=== PATIENT | female | born 1990 | race Caucasian/White ===

== ENCOUNTER → 2020-01-05 14:38 | Outpatient (CLI) | payer BC, SELFPAY ==
[2020-01-05 15:06] LABS: ROM Internal Control Test YES-OK TO RESULT pt. (Internal QC); ROM Patient Test Negative (Negative)
== END ==
PROVIDERS: PCP Student in an Organized Health Care Education/Training Program; Referring Provider Advanced Practice Midwife; Visit Provider Advanced Practice Midwife
DX: N89.8 Other specified noninflammatory disorders of vagina (principal)
CPT/HCPCS: 84112

== ENCOUNTER 2020-01-23 23:50 | Outpatient (CLI) | payer BC, SELFPAY ==
[2016-10-21 15:13] VITALS: BMI 33.0
[2020-01-24 00:10] VITALS: BMI 35.9
[2020-01-24 00:21] VITALS: BP 112/65; PULSE 110; TEMP 36.9; O2SAT 98
[2020-01-24 00:36] LABS: ROM Internal Control Test YES-OK TO RESULT pt. (Internal QC); ROM Patient Test Negative (Negative)
--- NOTE | 2020-03-24 00:36 | OB.TRI.NOTE ---
- Problem List (1) 39 weeks gestation of Status: Acute (2) Vaginal discharge Status: Acute History of Present Illness Date of Service: 01/24/20 Was patient seen by the physician?: No Reason For Visit: R/O LABOR Date of Service: 01/24/20 Final LIZABETH: 01/31/20 Final LIZABETH Source: LMP Gestational age: 39 week gestation History of Present Illness: Rule out rupture Allergies No Known Allergies Allergy (Verified 01/24/20 20:33) Laboratory Studies: Laboratory Tests 01/24/20 Range/Units 00:10 Vag Amniotic Fld Detect Negative (Negative) Physical Exam Vitals: Vital Signs Temp Pulse BP Pulse Ox 98.5 F 110 H 112/65 98 01/24/20 00:21 01/24/20 00:21 01/24/20 00:21 01/24/20 00:21 NST - FHR Rate Baby A Baseline: 150 Variability:: Moderate Accelerations:: 15 x 15 Decelerations:: None NST Reactive:: Yes Impression/Plan Pt not ruptured NST reactive D/c home
== END 2020-01-24 02:15 | disposition home or self-care (01) ==
LOC: WPOUT 23:57 → WP 23:57
PROVIDERS: PCP Student in an Organized Health Care Education/Training Program; Visit Provider Obstetrics & Gynecology
DX: O26.893 Other specified pregnancy related conditions, third trimester (principal); N89.8 Other specified noninflammatory disorders of vagina; Z3A.39 39 weeks gestation of pregnancy
CPT/HCPCS: 59025; 59050; 84112; 99218; G0378

== ENCOUNTER 2020-01-24 19:26 | Inpatient (IN) | payer BC, SELFPAY ==
[2020-01-24] VITALS (12 sets, daily range): BP systolic 116–131; BP diastolic 67–85; PULSE 93–116; TEMP 36.7–36.8; O2SAT 92–99; BMI 35.9; BMI 35.7
[2020-01-24] MEDS: Lactated Ringers 1,000 ML 50 ML IV (20:05)
[2020-01-24 20:15] LABS: Absolute Lymphocyte Count 1.55 X10^3/uL (0.83-4.51); Absolute Neutrophil Count 9.2 X10^3/uL (2.0-7.7); Basophil# 0.04 X10^3/uL; Basophil% 0.3 % (0-1); Eosinophil# 0.11 X10^3/uL; Eosinophils% 0.9 % (0-5); Hematocrit 35.5 % (37-47); Hemoglobin 11.4 g/dL (12.0-15.0); Lymphocyte # 1.55 X10^3/ul (4.0); Mean Corp Hgb Conc 32.1 g/dL (32-36); Mean Corpuscular Hgb 29.7 pg (27.0-32.0); Mean Corpuscular Volume 92.4 fL (81-99); Mean Platelet Vol. 10.6 fl (6.2-12.0); Monocyte# 0.93 X10^3/uL; Monocyte% 7.8 % (0-10); NRBC Flagged by Analyzer 0 % (0-5); Neutrophil # 9.16 X10^3/uL (2.7-7.7); Neutrophil % 76.8 % (47-70); Platelet Count 231 K/mm3 (150-450); RBC Distribution Width CV 13.7 % (11.6-14.6); RBC Distribution Width SD 45.8 fl (35.1-43.9); Red Blood Count 3.84 M/mm3 (4.2-5.4); White Blood Count 11.9 K/mm3 (4.4-11.0)
[2020-01-24] MEDS: fentaNYL 100 MCG/2 ML Ampul IV (20:28)
--- NOTE | 2020-01-24 20:28 | HP.PCM_ITS ---
- Problem List (1) 39 weeks gestation of Status: Acute (2) Active labor Status: Acute History Date of Admission: 01/24/20 Final LIZABETH: 01/31/20 Final LIZABETH Source: LMP Gestational age: 39 Weeks and 0 Days History of this : This is a 29 year-old, G [3], P [2], at 39 weeks gestational age that presents in spontaneous, active labor. Positive movement. Denies any loss of fluid or vaginal bleeding. Desires natural child . Allergies No Known Allergies Allergy (Verified 01/24/20 00:11) Home Medications: Home Medications Vits [Prenatabs FA ] 1 tablet PO DAILY 05/04/14 Fluticasone 0.05% [Flonase Nasal [place]] 1 spray NASAL PRN PRN 01/24/20 Zyrtec 10 mg PO DAILY 01/24/20 Smoking Status: Never smoker Number of Fetus(es): 1 NST - FHR Rate Baby A Baseline: 150 Variability:: Moderate Accelerations:: 15 x 15 Decelerations:: None NST Reactive:: Yes FHR Category:: Category I Uterine Activity:: TOCO- 2-5 minutes. Palpate moderate and relaxed in between History Past Pregnancies: Past Pregnancies Delivery Date Name GA/ Weeks Outcome Route Wt Sex Labor Length Anesthesia Delivery Location Provider FOB Labs: B+ Rubella - immune HB- neg HC- neg HIV- NR GC/CH- neg GBS negative CoVID- 19- unknown Expected Infant Delivery Method: Spontaneous Vaginal Review of Systems Constitutional: Denies: Anorexia, Chills Eyes: Denies: Blurred vision Cardiovascular: Denies: Chest Pain Respiratory: Denies: Cough Genitourinary: Denies: Dysuria Neurological: Denies: Headaches Physical Exam Vitals: Vital Signs Temp Pulse BP 98.1 F 101 H 121/74 H 01/24/20 19:39 01/24/20 19:39 01/24/20 19:39 General: Alert, Oriented x3 HEENT: Atraumatic Cardiovascular: Regular rate Lungs: Normal air movement Abdomen: Soft, Non Tender, Gravid Neurological: Cranial nerves II-XII grossly intact Estimated gestational size: Appropriate for gestational size Presentation: Cephalic Cervix 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 Admit to labor and delivery Routine labs IV fluids per policy Pain medication if indicated GBS negative Anticipate Dr. Mai notified and is collaborating physician
[2020-01-24] MEDS: Ondansetron 4 MG/2 ML Vial IV (22:40)
[2020-01-24] MEDS: Oxytocin 10 UNITS/ML Vial IM (23:23)
--- NOTE | 2020-01-24 23:28 | PCM.OPRPT ---
Problem List (1) 39 weeks gestation of Status: Acute (2) Active labor Status: Acute Report of Operation Date of Procedure: 01/24/20 Vaginal Delivery Maternal Presentation: Active Labor Patient is a at 39.0 weeks gestation in spontaneous, active labor. Patient quickly progressed to 9cm with bulging bag. Natural child . Requesting to have AROM to speed up delivery. AROM for clear fluid, patient bearing down with contractions. head delivered quickly with minimal effort. Loose nuchal cord x2 easily reduced. Rest of infant delivered spontaneously and immediately vigorous placed on maternal abdomen. Delayed cord clamp completed for 2 minutes. Cord cut by FOB and placed skin to skin with patient. Patient's IV became infiltrated. Pitocin 10 mg IM x1 given for active management of third stage. Placenta delivered spontaneously and intact. Vaginal sweep completed. 1st degree perineal laceration noted, no repair needed and bleeding hemostatic. Fundus was firm 2 below U. Infant and mother bonding at this time. Amniotic Membrane Rupture Type: Spontaneous at home Rupture of Membrane time: 2308 Amniotic Fluid Description: Clear Gestational age: 39.0 Date of Procedure: 01/24/20 Pre-Operative Diagnosis: Term gestation, spontaneous, active labor Post-Operative Diagnosis: Same, live female infant Surgery/ Procedure Performed: Spontaneous Vaginal Delivery Type of Anesthesia: None Presentation: Vertex Placental Delivery Description: Spontaneous Placenta Disposition: [facility] Cord Vessel Description: 3 Vessels Nuchal Cord Compression: Without compression Cord Entanglement: Around neck x 2, loose Estimated Blood Loss: 250 A gender: Female (1 minute): 9 (5 minute): 9 Episiotomy Description: None Laceration: Perineal Extension/lac, 1st degree Medications given after delivery: - - IM Pitocin Complications: None
[2020-01-24] MEDS: Ibuprofen 600 MG Tablet PO (23:59)
[2020-01-25] VITALS (18 sets, daily range): BP systolic 104–126; BP diastolic 57–72; PULSE 85–106; RESP 15–16; TEMP 36.3–36.9; O2SAT 98
[2020-01-25] MEDS: Methylergonovine 0.2 MG/ML Ampul IM (01:44)
[2020-01-25] MEDS: Ibuprofen 600 MG Tablet PO ×3 (06:45→20:42)
--- NOTE | 2020-01-25 08:22 | PCM.PN.OB ---
Patient Problems: Active and Suspected Problems 39 weeks gestation of (Acute) Active labor (Acute) Subjective: No complaints - Physical Exam Vitals/I&O's: Vital Signs Temp Pulse Resp BP Pulse Ox 97.4 F L 88 16 124/70 H 98 01/25/20 04:00 01/25/20 04:00 01/25/20 04:00 01/25/20 04:00 01/25/20 04:00 Oxygen Delivery Method Room Air Weight: 228 lb 6.4 oz Body Mass Index (BMI) 35.7 Intake and Output for Last 24 Hours 01/23/20 01/24/20 01/25/20 23:59 23:59 23:59 Intake Total 161.67 / 161.67 Output Total 400 / 400 Balance 161.67 / 161.67 -400 / -400 General: Alert, Oriented x3 Abdomen: Soft, Non Tender, Non-Distended - ff mid & below umb Extremities: No Calf Tenderness Laboratory Results 01/24/20 20:05: WBC 11.9 H, RBC 3.84 L, Hgb 11.4 L, Hct 35.5 L, MCV 92.4, MCH 29.7, MCHC 32.1, RDW Std Deviation 45.8 H, RDW Coeff of [place] 13.7, Plt Count 231, MPV 10.6, Immature Gran % (Auto) 1.200 H, Neut % (Auto) 76.8 H, Lymph % (Auto) 13.0 L, [place] % (Auto) 7.8, Eos % (Auto) 0.9, Baso % (Auto) 0.3, Absolute Neuts (auto) 9.2 H, Absolute Lymphs (auto) 1.55, Nucleated RBC % 0 01/24/20 20:05: Blood Type B POSITIVE, Antibody Screen NEGATIVE Current Medications Acetaminophen (Tylenol) 1,000 mg PO Q8H PRN PRN PRN Reason: Pain Score 1-3/10 Bisacodyl (Dulcolax) 10 mg RECTAL UD PRN PRN Reason: If no BM Dibucaine (Dibucaine) 1 applic TOPICAL TID PRN PRN; Protocol PRN Reason: Discomfort Hydrocortisone (Hytone) 1 applic TOPICAL TID PRN PRN; Protocol PRN Reason: Discomfort Ibuprofen (Motrin) 600 mg PO Q6H PRN PRN PRN Reason: Pain Score 1-3/10 Last Admin: 01/25/20 06:45 Dose: 600 mg Documented by: Methylergonovine Maleate (Methergine) 0.2 mg IM X1 PRN PRN Reason: Excess bleeding/uterine atony Last Admin: 01/25/20 01:44 Dose: 0.2 mg Documented by: Ondansetron HCl (Zofran) 4 mg IV Q4H PRN PRN PRN Reason: Nausea Senna/Docusate Sodium (Senokot-S, Kristina-Colace) 1 - 2 tablet PO DAILY PRN PRN PRN Reason: Constipation Simethicone (Mylicon) 80 mg PO PCHS PRN PRN Reason: Indigestion/Stomach pain Sodium Chloride () 5 - 15 ml IV UD PRN PRN Reason: SALINE FLUSH Medical Necessity - Tobacco Use Smoking Status: Never smoker Assessment/Plan All Active Problems 39 weeks gestation of (Acute) Active labor (Acute) PPD#1 Routine care
[2020-01-26 01:31] VITALS: BP 106/56; PULSE 87; TEMP 36.3
[2020-01-26 01:32] VITALS: BP 106/56; PULSE 87; RESP 14; TEMP 36.3
[2020-01-26] MEDS: Acetaminophen 500 MG Tablet 1000 MG PO (04:18)
--- NOTE | 2020-01-26 07:39 | DCINST_ITS ---
Discharge Diet: No Restrictions Discharge Activity: May Drive, May Shower May resume sexual activity in: 6 weeks Additional Instructions: If you experience any of the following, contact your healthcare provider. * Bleeding that soaks a pad every hour for 2 hours * Fever 100.4 or higher * Unrelieved incision or abdominal pain * Swelling, redness, discharge or bleeding from your incision or episiotomy site * Your incision begins to separate * Problems urinating (including inability to urinate or burning while urinating). * Visual changes * Severe headache * Flu-like symptoms * Pain or redness in one of both of your breasts * Pain, warmth, tenderness or swelling in your legs, especially the calf area * Frequent nausea and vomiting * Symptoms of depression or anxiety If you experience any of the following, call 911 or go to the nearest Emergency Room. * Chest pain * Problems breathing * Seizure activity * Partial or complete paralysis of a body part, slurred speech, weakness or drooping of the face, or a sudden inability to walk or hold your balance Allergies/Adverse Reactions: Allergies No Known Allergies Allergy (Verified 01/24/20 20:33) Medications to take at Discharge Vits [Prenatabs FA ] 1 tablet PO DAILY 05/04/14 Fluticasone 0.05% [Flonase Nasal [place]] 1 spray NASAL PRN PRN 01/24/20 Zyrtec 10 mg PO DAILY 01/24/20 Acetaminophen [Tylenol] 1,000 mg PO Q8H PRN PRN tablet 01/26/20 Ibuprofen [Motrin] 600 mg PO Q6H PRN PRN tablet 01/26/20 Primary Care Physician: Tyrese Nguyen DO [Primary Care Provider] - Test Results: Test results from this visit will be discussed in further detail at your follow- up appointment, if applicable.
--- NOTE | 2020-01-26 07:39 | PCM.DCVAG ---
Discharge Diet: No Restrictions Discharge Activity: May Drive, May Shower May resume sexual activity in: 6 weeks Additional Instructions: If you experience any of the following, contact your healthcare provider. Bleeding that soaks a pad every hour for 2 hours Fever 100.4 or higher Unrelieved incision or abdominal pain Swelling, redness, discharge or bleeding from your incision or episiotomy site Your incision begins to separate Problems urinating (including inability to urinate or burning while urinating). Visual changes Severe headache Flu-like symptoms Pain or redness in one of both of your breasts Pain, warmth, tenderness or swelling in your legs, especially the calf area Frequent nausea and vomiting Symptoms of depression or anxiety If you experience any of the following, call 911 or go to the nearest Emergency Room. Chest pain Problems breathing Seizure activity Partial or complete paralysis of a body part, slurred speech, weakness or drooping of the face, or a sudden inability to walk or hold your balance Allergies/Adverse Reactions: Allergies No Known Allergies Allergy (Verified 01/24/20 20:33) Medications to take at Discharge Vits [Prenatabs FA ] 1 tablet PO DAILY 05/04/14 Fluticasone 0.05% [Flonase Nasal [place]] 1 spray NASAL PRN PRN 01/24/20 Zyrtec 10 mg PO DAILY 01/24/20 Acetaminophen [Tylenol] 1,000 mg PO Q8H PRN PRN tablet 01/26/20 Ibuprofen [Motrin] 600 mg PO Q6H PRN PRN tablet 01/26/20 Primary Care Physician: Tyrese Nguyen DO [Primary Care Provider] - Test Results: Test results from this visit will be discussed in further detail at your follow-up appointment, if applicable.
--- NOTE | 2020-01-26 07:40 | PCM.PN.OB ---
Patient Problems: Active and Suspected Problems 39 weeks gestation of (Acute) Active labor (Acute) Subjective: No complaints - Physical Exam Vitals/I&O's: Vital Signs Temp Pulse Resp BP Pulse Ox 97.3 F L 87 14 106/56 L 98 01/26/20 01:32 01/26/20 01:32 01/26/20 01:32 01/26/20 01:32 01/25/20 04:00 Oxygen Delivery Method Room Air Weight: 228 lb 6.4 oz Body Mass Index (BMI) 35.7 Intake and Output for Last 24 Hours 01/24/20 01/25/20 01/26/20 23:59 23:59 23:59 Intake Total 161.67 / 161.67 Output Total 400 / 400 Balance 161.67 / 161.67 -400 / -400 General: Alert, Oriented x3 Abdomen: Soft, Non Tender, Non-Distended - ff mid & below umb Extremities: No Calf Tenderness Neurological: Cranial nerves II-XII grossly intact Current Medications Acetaminophen (Tylenol) 1,000 mg PO Q8H PRN PRN PRN Reason: Pain Score 1-3/10 Last Admin: 01/26/20 04:18 Dose: 1,000 mg Documented by: Bisacodyl (Dulcolax) 10 mg RECTAL UD PRN PRN Reason: If no BM Dibucaine (Dibucaine) 1 applic TOPICAL TID PRN PRN; Protocol PRN Reason: Discomfort Hydrocortisone (Hytone) 1 applic TOPICAL TID PRN PRN; Protocol PRN Reason: Discomfort Ibuprofen (Motrin) 600 mg PO Q6H PRN PRN PRN Reason: Pain Score 1-3/10 Last Admin: 01/25/20 20:42 Dose: 600 mg Documented by: Methylergonovine Maleate (Methergine) 0.2 mg IM X1 PRN PRN Reason: Excess bleeding/uterine atony Last Admin: 01/25/20 01:44 Dose: 0.2 mg Documented by: Ondansetron HCl (Zofran) 4 mg IV Q4H PRN PRN PRN Reason: Nausea Senna/Docusate Sodium (Senokot-S, Kristina-Colace) 1 - 2 tablet PO DAILY PRN PRN PRN Reason: Constipation Simethicone (Mylicon) 80 mg PO PCHS PRN PRN Reason: Indigestion/Stomach pain Sodium Chloride () 5 - 15 ml IV UD PRN PRN Reason: SALINE FLUSH Medical Necessity - Tobacco Use Smoking Status: Never smoker Assessment/Plan All Active Problems 39 weeks gestation of (Acute) Active labor (Acute) PPD#2 D/c home
[2020-01-26 07:44] VITALS: TEMP 36.3
[2020-01-26 07:45] VITALS: BP 90/56; PULSE 80
[2020-01-26 07:53] VITALS: BP 90/56; PULSE 80; RESP 18; TEMP 36.3; O2SAT 97
== END 2020-01-26 10:45 | disposition home or self-care (01) | DRG 807 ==
LOC: WPOUT 19:32 → WP 19:33 → WPOUT 19:47 → WP 19:47
PROVIDERS: Admitting Provider Advanced Practice Midwife; PCP Student in an Organized Health Care Education/Training Program; Referring Provider Advanced Practice Midwife; Visit Provider Advanced Practice Midwife
DX: O69.81X0 Labor and delivery complicated by cord around neck, without compression, not applicable or unspecified (principal); Z37.0 Single live birth; Z3A.39 39 weeks gestation of pregnancy; O70.0 First degree perineal laceration during delivery
CPT/HCPCS: 59025; 59050; 85025; 86850; 86900; 86901; 99218; J7120; G0378; J2405

== ENCOUNTER 2022-06-03 11:50 | Outpatient (CLI) | payer BC, SELFPAY ==
[2022-06-03 12:05] VITALS: TEMP 37.4
[2022-06-03 12:59] VITALS: BMI 34.2
--- NOTE | 2022-06-09 08:54 | OB.TRI.PN ---
Progress Notes Progress Note: 35w5d with LIZABETH:07/03/22 Patient seen in office for routine OB visit. heart rate deceleration auscultated on doppler and placed on NST. tachycardia and then sent to labor and delivery for evaluation. Good movement, no leakage of flood or vaginal bleeding. Laboratory Studies: NST 140s, moderate variability, accels, no decels, Reactive Assessment & Plan (1) 35 weeks gestation of : (2) tachycardia: PLAN: Plan 1) Reactive NST, no tachycardia 2) D/C home
== END 2022-06-03 14:35 | disposition home or self-care (01) ==
LOC: WP 11:59 → WPOUT 11:59
PROVIDERS: PCP Student in an Organized Health Care Education/Training Program; Visit Provider Advanced Practice Midwife
DX: O35.BXX0 Maternal care for other (suspected) fetal abnormality and damage, fetal cardiac anomalies, not applicable or unspecified (principal); Z3A.35 35 weeks gestation of pregnancy
CPT/HCPCS: 59025; 59050

== ENCOUNTER 2022-06-18 23:30 | Outpatient (CLI) | payer BC, SELFPAY ==
[2022-06-18 23:35] VITALS: BMI 34.8
[2022-06-18 23:46] VITALS: TEMP 37.1
[2022-06-19 00:02] VITALS: BP 114/70; PULSE 100
[2022-06-19 00:26] LABS: ROM Internal Control Test YES-OK TO RESULT pt. (Internal QC); ROM Patient Test Negative (Negative)
[2022-06-19 01:07] LABS: ROM Internal Control Test YES-OK TO RESULT pt. (Internal QC); ROM Patient Test Negative (Negative)
== END 2022-06-19 01:25 | disposition home or self-care (01) ==
LOC: WPOUT 23:34 → WP 23:34
PROVIDERS: PCP Student in an Organized Health Care Education/Training Program; Visit Provider Obstetrics & Gynecology
DX: O80 Encounter for full-term uncomplicated delivery (principal); Z3A.38 38 weeks gestation of pregnancy
CPT/HCPCS: 59025; 59050; 84112; 99221; G0378

== ENCOUNTER 2022-06-19 09:45 | Inpatient (IN) | payer BC, SELFPAY ==
[2022-06-19] VITALS (30 sets, daily range): BP systolic 101–135; BP diastolic 52–92; PULSE 88–113; RESP 16; TEMP 36.6–37.3; O2SAT 90–100; BMI 34.6
[2022-06-19] MEDS: Lactated Ringers 1,000 ML 50 ML IV (10:00)
[2022-06-19] MEDS: LACTATED RINGERS 500 ML 999 ML IV (10:00)
[2022-06-19 10:32] LABS: Absolute Lymphocyte Count 1.21 X10^3/uL (0.83-4.51); Absolute Neutrophil Count 10.1 X10^3/uL (2.0-7.7); Basophil# 0.03 X10^3/uL; Basophil% 0.2 % (0-1); Eosinophil# 0.02 X10^3/uL; Eosinophils% 0.2 % (0-5); Hematocrit 37.7 % (37-47); Hemoglobin 12.4 g/dL (12.0-15.0); Lymphocyte # 1.21 X10^3/ul (0.83-4.51); Lymphocyte % 9.8 % (19-41); Mean Corp Hgb Conc 32.9 g/dL (32-36); Mean Corpuscular Hgb 30.6 pg (27.0-32.0); Mean Corpuscular Volume 93.1 fL (81-99); Monocyte# 0.89 X10^3/uL; Monocyte% 7.2 % (0-10); NRBC Flagged by Analyzer 0 % (0-5); Neutrophil # 10.09 X10^3/uL (2.7-7.7); Platelet Count 184 K/mm3 (150-450); RBC Distribution Width CV 13.2 % (11.6-14.6); Red Blood Count 4.05 M/mm3 (4.2-5.4); White Blood Count 12.3 K/mm3 (4.4-11.0)
[2022-06-19] MEDS: fentaNYL-bupivacaine (epidural) 100 ML BAG EPIDURAL (11:12)
[2022-06-19] MEDS: Oxytocin 15 Units/NS 250ml 15 UNITS/250 ML IV.SOLN 334 UNITS IV (11:23)
--- NOTE | 2022-06-19 11:31 | EX.PCM.OBRPT ---
Maternal Data Information Final LIZABETH: 07/03/22 Final LIZABETH Source: US <20 weeks Gestational age: 38 Vaginal Delivery Maternal Presentation Maternal Presentation: Active Labor Operative Information Date of Procedure: 06/19/22 Pre-Operative Diagnosis: term gestation, active labor Post-Operative Diagnosis: same, live female Surgery / Procedure Performed: Spontaneous Vaginal Delivery Type of Anesthesia: Epidural (did not get relief- was just placed when she SROM and progressed to complete. ) Estimated Blood Loss: 150 Time of Delivery: 11:21 Findings Description of Procedure: I was called notified that the patient was complete at the time of placement of her epidural with spontaneous rupture membranes. Upon my arrival at the hospital patient was +2 station uncontrolled pain. Good maternal pushing efforts delivered the infant's head followed by the anterior and posterior shoulders without complication. The infant was then placed on the mother's chest for immediate skin to skin. Delayed cord clamping for approximately 2 minutes was performed per patient request. Placenta was then delivered intact without complication. No repair indicated. Amniotic Fluid Description: Clear Placental Delivery Description: Spontaneous Placenta Disposition: [facility] Specimen(s) Removed: Placenta Cord Vessel Description: 3 Vessels Cord Entanglement: None A Gender: Female (1 minute): 9 (5 minute): 9 Delayed Cord Clamping: Yes Post Vaginal Delivery Medications Given After Delivery: IV Pitocin Episiotomy Description: None Laceration: None Complication Complications: None
--- NOTE | 2022-06-19 11:34 | PCM.HP.OB ---
HPI - General General Date of Admission: 06/19/22 Date of Service: 06/19/22 Chief Complaint: labor HPI Narrative TEQUILA MAST, is a 31 F @ 38 weeks who presents c/o contractions. was found to be 4cm- very uncomfortable- kept for labor. PFSH PFSH Home Medications vits,calcium no.78-iron fumarate-folic acid 29 mg-1 mg tablet (Prenatabs FA) 1 tab PO DAILY 05/04/14 [History Last Taken 06/18/22 09:00] aspirin 81 mg capsule ([place]) 81 mg DAILY (obestity) 06/03/22 [History Last Taken 06/18/22 09:00] Allergy/AdvReac Type Severity Reaction Status Date / Time No Known Allergies Allergy Verified 06/19/22 09:32 Social History Smoking Status: Never smoker History Elective abortions Hx Para 3 Spontaneous abortions Hx # Term Pregnancies Ectopic pregnancies Hx # Pregnancies Multiple births # of living children Vital Signs Vital Signs Vital Signs: 06/19/22 09:26 06/19/22 09:26 06/19/22 09:26 Temperature Temperature Source Pulse Rate 102 H 109 H Blood Pressure 118/70 BP Systolic 118 BP Diastolic 70 Pulse Ox 06/19/22 09:26 06/19/22 09:26 06/19/22 09:36 Temperature Temperature Source Temporal Temporal Pulse Rate Blood Pressure BP Systolic BP Diastolic Pulse Ox 97 06/19/22 09:36 06/19/22 10:31 06/19/22 10:31 Temperature 97.9 F Temperature Source Pulse Rate 105 H Blood Pressure 120/78 BP Systolic 120 BP Diastolic 78 Pulse Ox 06/19/22 10:34 06/19/22 10:34 06/19/22 10:34 Temperature 98.0 F Temperature Source Temporal Pulse Rate Blood Pressure BP Systolic BP Diastolic Pulse Ox 100 06/19/22 10:57 06/19/22 10:57 06/19/22 10:59 Temperature Temperature Source Pulse Rate 106 H 110 H Blood Pressure BP Systolic BP Diastolic Pulse Ox 96 06/19/22 10:59 06/19/22 11:02 06/19/22 11:02 Temperature Temperature Source Pulse Rate 113 H Blood Pressure BP Systolic BP Diastolic Pulse Ox 93 96 06/19/22 11:05 06/19/22 11:05 06/19/22 11:12 Temperature Temperature Source Pulse Rate 113 H Blood Pressure 118/68 115/92 H BP Systolic 118 115 BP Diastolic 68 92 Pulse Ox 06/19/22 11:12 06/19/22 11:14 06/19/22 11:14 Temperature Temperature Source Pulse Rate 108 H 113 H Blood Pressure BP Systolic BP Diastolic Pulse Ox 99 06/19/22 11:15 06/19/22 11:15 06/19/22 11:17 Temperature Temperature Source Pulse Rate 105 H 99 Blood Pressure 125/66 H BP Systolic 125 BP Diastolic 66 Pulse Ox 06/19/22 11:17 06/19/22 11:20 06/19/22 11:20 Temperature Temperature Source Pulse Rate 102 H Blood Pressure 135/65 H BP Systolic 135 BP Diastolic 65 Pulse Ox 90 06/19/22 11:19 06/19/22 11:33 06/19/22 11:33 Temperature Temperature Source Pulse Rate 96 Blood Pressure 101/54 L BP Systolic 101 BP Diastolic 54 Pulse Ox 100 Weight Weight: 100.301 kg Body Mass Index (BMI) 34.6 Labs Labs Labs: Blood Type B POSITIVE Antibody Screen NEGATIVE Hct 37.7 % (37-47) Hgb 12.4 g/dL (12.0-15.0) Chlamydia DNA ([place]) Negative (Negative) Neisseria gonorrhoeae DNA ([place]) Negative (Negative) Rhogam given: No Assessment & Plan (1) 38 weeks gestation of : PLAN: Plan Admit to L&D [place] FHR/TOCO Epidural if requested for pain Monitor VS Anticipate
[2022-06-19] MEDS: Ibuprofen 600 MG Tablet PO (16:07)
[2022-06-20 00:39] VITALS: BP 105/59; PULSE 93; PULSE 94; RESP 16; TEMP 36.4; O2SAT 97
[2022-06-20] MEDS: Ibuprofen 600 MG Tablet PO ×2 (00:49→10:03)
[2022-06-20 04:54] VITALS: BP 95/56; PULSE 80; PULSE 81; PULSE 86; RESP 16; TEMP 36.4; O2SAT 95; O2SAT 96
[2022-06-20 08:10] VITALS: BP 108/62; PULSE 93; O2SAT 98
[2022-06-20 08:15] VITALS: BP 108/62; PULSE 95; RESP 16; TEMP 36.1; O2SAT 97
[2022-06-20] MEDS: Benzocaine/Lanolin/Aloe Vera 1 SPRAY EACH TOPICAL (08:22)
--- NOTE | 2022-06-20 08:28 | PN.OBGYN_ITS ---
Subjective Subjective Patient seen at bedside. Feeling good. Ambulating and voiding without difficulty. Denies any pain. without incident. Desires discharge home today. Objective Data Objective Data Vital Signs: Vital Signs Temp Pulse Resp BP Pulse Ox O2 Del Method 97.6 F L 93 16 108/62 98 Room Air 06/20/22 04:54 06/20/22 08:10 06/20/22 04:54 06/20/22 08:10 06/20/22 08:10 06/20/22 04:54 Oxygen Delivery Method Room Air Weight: 221 lb 2 oz Body Mass Index (BMI) 34.6 Intake & Output: Intake and Output for Last 24 Hours 06/18/22 06/19/22 06/20/22 23:59 23:59 23:59 Intake Total 1550.03 / 1550.03 Output Total 950 / 950 Balance 600.03 / 600.03 Lab / Micro Data Result Diagrams: 06/19/22 10:00 Labs: Laboratory Results - last 24 hr 06/19/22 10:00: WBC 12.3 H, RBC 4.05 L, Hgb 12.4, Hct 37.7, MCV 93.1, MCH 30.6, MCHC 32.9, RDW Std Deviation 45.0 H, RDW Coeff of [place] 13.2, Plt Count 184, MPV 11.0, Immature Gran % (Auto) 0.600, Neut % (Auto) 82.0 H, Lymph % (Auto) 9.8 L, [place] % (Auto) 7.2, Eos % (Auto) 0.2, Baso % (Auto) 0.2, Absolute Neuts (auto) 10.1 H, Absolute Lymphs (auto) 1.21, Nucleated RBC % 0 06/19/22 10:00: Blood Type B POSITIVE, Antibody Screen NEGATIVE ROS Eyes Eyes: Denies blurry vision, change in vision or spots in vision ENT HEENT: Denies dizziness or headache(s) Cardiovascular Cardiovascular: Denies abdominal pain, chest pain or dyspnea Respiratory/Chest Respiratory/Chest: Denies cough, dyspnea, shortness of breath at rest or shortness of breath with exertion Gastrointestinal Gastrointestinal: Denies abdominal pain, diarrhea or vomiting Genitourinary Genitourinary: Denies change in urinary stream, difficulty urinating or dysuria Musculoskeletal Musculoskeletal: Reports none Integumentary Integumentary: Denies rash Neurologic Neurologic: Denies dizziness, headache(s), memory loss or weakness Physical Exam Const alert and no apparent distress General Appearance: cooperative and comfortable Exam Limitations: no limitations HEENT normocephalic Eyes General Eye: normal appearance of both eyes Neck full ROM General: normal visual inspection Chest Chest: symmetrical chest wall rise Resp normal respiratory effort and normal air movement Effort and Inspection: symmetric chest movement Auscultation: clear to auscultation bilaterally Cardio regular rate and regular rhythm GI normal to inspection, nondistended, normoactive bowel sounds Back/Spine normal ROM Extremity full ROM and no calf tenderness General Extremity: normal exam except as noted Skin no rashes or lesions noted Neuro CN's II-XII intact bilaterally Psych mental status grossly normal Assessment & Plan (1) (spontaneous vaginal delivery): (2) Care and examination of lactating mother: PLAN: Plan PPD 1 Intact support Pain control D/C home with follow up in office
--- NOTE | 2022-06-20 08:30 | DCINST_ITS ---
Discharge Instructions Diet Discharge Diet: No restrictions Activity Discharge Activity: Return to Normal Activity, May Shower and May Take a Tub Bath May resume sexual activity in: 4-6 weeks Weight Bearing Status: Weight bearing as tolerated Dressing / Incision Call your doctor if you observe: Inability to urinate, Using more than 1 pad per hour, Shortness of breath, Dizziness, Swelling in the ankles, Chest pain, Calf discomfort and Uncontrolled pain Follow Up Care When: Within 14 days Test Results: Test results from this visit will be discussed in further detail at your follow- up appointment, if applicable. Discharge Plan Admission Admit Date/Time: 06/19/22 09:45 Primary Reason for Your Visit: Labor and Delivery Attending Provider: Renee Avina Primary Care Provider: Tyrese Nguyen Discharge Orders/Prescriptions Prescriptions: No Action Prenatabs FA 1 TABLET tablet 1 tab PO DAILY [place] 81 mg Capsule 81 mg DAILY Referrals / Follow Up: Tyrese Nguyen DO [Primary Care Provider] - Disposition Disposition (needs filled in before D/C Order can be placed): Home, Self Care
[2022-06-20] MEDS: Senna/Docusate Sodium 1 Tablet PO (10:04)
--- NOTE | 2022-06-20 12:00 | CASEMGMT ---
Social Work Brief Assessment Labor and Delivery Unit Patient Address: [address] [place] [address] [address], [place] [address] Phone number: [phone] Date of Referral/Notification: 06/19/2022 Time of Referral: 2119 Referred By: Dr. Walter Mai Date of Intervention: 06/20/2022 Time of Intervention: 1200 Reason for Referral: Maternal history of depression anxiety Informant: Medical record and mother of baby (MOB) Krista Herrera History: ARIANNE is a 32-year-old female, to the father of baby (FOB) Mayank Herrera. MOB denies any type of domestic violence or safety concerns in this marriage and describes the FOB as a rockstar. MOB and FOB now have 4 daughters: Maik (05/14/2014), Evangelina (10/21/2016), Itz (01/24/2020), and baby Checo (06/19/2022). care was adequate with this . ARIANNE is 4, para 3 now 4. Checo's weight was 7 pounds 3 ounces Apgars 9 and 9 at 1 and 5 minutes of life. MOB reports to be a [id number] mother and FOB works for the [employer] and is an ex [employer]. MOB reports some depression in particular after the second child and most of this was situational due to familiar stress with being ARIANNE's [id number]. MOB reports was prescribed as needed Ativan which MOB reports to use mostly around time of family gatherings and reports has had the same bottle for a couple of years. Denies any use of Ativan during this . Denies any history of SI or HI. MOB does report to have a counselor that she sees weekly through [facility] counseling in [place] counselor's name is Georgette. MOB denies any type of substance use history or concerns. MOB reports primary coping is talking to others. Reports to have good support from her side of the family and the FOB. Assessment: Met with MOB and FOB in room, introducing to self and social work role. Discussed need to speak with MOB alone, and FOB left room to get the car together as family was preparing for discharge from the hospital. MOB was talkative throughout social work visit, good eye contact, bright affect, and attentive to the baby. MOB openly talked about stressors after the second and reports that the did not really affect her after the third. MOB reports to feel her support system is good and plans to remain in counseling. MOB is aware of the risk for depression with history. Accepted information on mood and anxiety disorders including resources MOB and FOB can both tap into. MOB denies any concerns with home-going. Denies any type of food, housing, transportation issues. Reports to have all necessary supplies to care for the baby. No voiced issues by nursing regarding parent-child interactions or bonding. Plan: MOB and infant discharging home. Resources on mood and anxiety disorders provided. No further needs requested or indicated. -MOHAMUD Buitrago, INTERNATIONAL OPERATIONS MANAGER *This note was generated with [employer] software. It may contain incorrect words, spelling, and punctuation that were not noted in review of the chart prior to signing*
[2022-06-20 12:40] VITALS: BP 107/55; PULSE 78; RESP 16; TEMP 36.7
[2022-06-20 12:41] VITALS: BP 107/55; PULSE 78
== END 2022-06-20 12:50 | disposition home or self-care (01) | DRG 807 ==
LOC: WPOUT 09:47 → WP 10:53
PROVIDERS: Admitting Provider Obstetrics & Gynecology; PCP Student in an Organized Health Care Education/Training Program; Visit Provider Obstetrics & Gynecology
DX: O80 Encounter for full-term uncomplicated delivery (principal); Z37.0 Single live birth; Z3A.38 38 weeks gestation of pregnancy; Z79.82 Long term (current) use of aspirin
CPT/HCPCS: 36415; 59025; 59050; 84112; 85025; 86850; 86900; 86901; 99221; J7120; G0378

== ENCOUNTER 2025-02-21 05:59 | Emergency (ER) | payer OTHER, SELFPAY ==
[2025-02-21 06:03] VITALS: BP 148/95; PULSE 88; RESP 20; TEMP 36.4; O2SAT 98; BMI 33.5
--- NOTE | 2025-02-21 06:20 | CT_ITS ---
PROCEDURE: ABDOMEN/PELVIS W IV CONT ONLY 02/21/2025 REASON FOR EXAM: RLQ ABD PAIN TECHNIQUE: Procedure Code: [id number] Modality: CT Procedure: ABDOMEN/PELVIS W IV CONT ONLY Coronal and Sagittal reconstruction series were provided. CONTRAST: 96 cc Isovue 370 One or more dose reduction techniques were used (e.g., Automated exposure control, adjustment of the mA and/or kV according to patient size, use of iterative reconstruction technique. RADIATION DOSE SUMMARY: DLP: 810 mGycm COMPARISON: None FINDINGS: Lung bases: Clear Liver: Unremarkable Gallbladder: Unremarkable Spleen: Remarkable Pancreas: Unremarkable Adrenals: Unremarkable Kidneys: Right kidney shows moderate hydronephrosis. There is a 0.3 cm stone in the distal right ureter at the bladder base, image number 100/125. The left kidney shows a 0.2 cm nonobstructing stone in the midpole. There is no hydronephrosis on the left. Bladder: Unremarkable Reproductive Organs: Unremarkable Bowel: Gas and stool is noted throughout the colon. The small bowel loops are not distended. Appendix: Within normal limits Lymph nodes: There is no pathologic adenopathy by size criteria. Vasculature: There is no visible atherosclerosis. Peritoneum / Retroperitoneum: There is no free air or free fluid. Bones: There is no acute bony abnormality. CT/Abdomen/Pelvis W IV Cont ONLY IMPRESSION: Right kidney shows moderate hydronephrosis. There is a 0.3 cm stone in the distal right ureter at the bladder base, image n umber 100/125. The left kidney shows a 0.2 cm nonobstructing stone in the midpole. Reading [facility]
--- NOTE | 2025-02-21 06:20 | EDS_ITS ---
HPI HPI - GI History of Present Illness Chief Complaint: Abd Pain Informant: patient Narrative Narrative: Patient is a 34-year-old female no significant past medical history presenting with sudden onset of severe right lower quad abdominal pain that woke her up from sleep. States he felt fine when she went to bed last night. States that about 2 hours prior to arrival. Describes the pain as constant, sharp and ripping in sensation. Denies any radiation of the pain. Has associated nausea and vomiting secondary to the pain. Denies any recent GI symptoms prior to this was her normal state of health. Denies urinary symptoms. Denies concern for . Her last menstrual cycle was 3 to 4 weeks ago. Denies any show any abdominal surgeries. Denies taking for pain prior to arrival. No other complaints or concerns at this time. States she is never felt dizzy like this before. Chart review does show she has a history of kidney stones. [facility] Medical History Kidney calculus Care and examination of lactating mother (spontaneous vaginal delivery) macrosomia depression Anxiety 38 weeks gestation of Home Medications ?Medication ?Instructions ?Recorded ?Last Taken ?Type NK 02/21/25 Unknown History Allergy/AdvReac Type Severity Reaction Status Date / Time No Known Allergies Allergy Verified 06/19/22 09:32 Social History Smoking Status: Never smoker ROS ROS ED Constitutional Constitutional ED: Denies chills or fever(s) Respiratory/Chest Respiratory/Chest: Denies cough Gastrointestinal Gastrointestinal: Reports abdominal pain and nausea; Denies constipation or diarrhea Genitourinary Genitourinary ED: Denies dysuria, hematuria or urinary frequency Musculoskeletal Musculoskeletal: Denies arthralgias, back pain or myalgias Neurologic Neurologic: Denies paresthesias or weakness Hematologic/Lymphatic Hematologic/Lymphatic: Denies easy bleeding or easy bruising EXAM Physical Exam Const Vital Signs: 02/21/25 06:03 02/21/25 08:01 Temperature 97.6 F L Temperature Source Oral Pulse Rate 88 82 Respiratory Rate 20 H 16 Blood Pressure 148/95 H 138/88 H Blood Pressure Mean 112 104 Pulse Ox 98 98 Oxygen Delivery Method Room Air Positive well nourished and well developed Constitutional Narrative: Uncomfortable appearing, pacing around the room General Appearance ED: well developed HEENT Reports moist mucous membranes Neck supple Resp normal respiratory effort and clear to auscultation bilaterally Cardio regular rate and regular rhythm GI non-distended GI Narrative: Tenderness to palpation of the right lower/right mid abdomen. No overlying skin changes present. No mass appreciated. Inspection: Negative for abdominal distention Auscultation: normoactive bowel sounds Palpation: soft and tender RLQ; Negative for guarding, rigid, hernia or mass Back/Spine no CVA tenderness Extremity full ROM Neuro moves all extremities Sensorium / Orientation: alert, oriented to person, oriented to place and oriented to time Motor Exam: Negative for general weakness Psych mental status grossly normal and thought process normal Skin no wounds Lesions: no lesions Rashes: no rashes MDM MDM MDM Narrative Medical decision making narrative: Patient having a rather sudden onset of severe right sided abdominal pain. D ifferential includes not limited to ovarian torsion, ectopic , ruptured ovarian cyst, renal colic, cholecystitis and appendicitis. Patient ordered IV morphine, Zofran and fluids for symptom control. Will obtain CT of the abdomen and pelvis as well as lab work and urinalysis. On repeat evaluation patient's pain is improving however medication is wearing off and does request more pain medication. Given additional 4 mg of morphine and Toradol. Lab including CBC, lactate, CMP largely normal. Minimally elevated total bilirubin 1.36 which is nonspecific. Urinalysis does show contamination as well as 10-25 white blood cells. This is quite nonspecific. CT is pending however on my evaluation there appears to be a small stone at the right UVJ. This to be consistent with her presentation. Will be signed out to oncoming physician pending CT result and final disposition. Anticipate if the stone is small can be discharged home with pain control. Lab Data Attestation: I reviewed the patient's lab results. Labs: Laboratory Results - last 24 hr 02/21/25 02/21/25 06:10 06:30 WBC 7.0 RBC 4.46 Hgb 14.0 Hct 40.5 MCV 90.8 MCH 31.4 MCHC 34.6 RDW Std Deviation 40.7 RDW Coeff of Bowen 12.3 Plt Count 210 MPV 11.0 Immature Gran % (Auto) 0.300 Neut % (Auto) 63.0 Lymph % (Auto) 25.9 [place] % (Auto) 9.3 Eos % (Auto) 1.1 Baso % (Auto) 0.4 Absolute Neuts (auto) 4.4 Absolute Lymphs (auto) 1.82 Nucleated RBC % 0 Sodium 138 Potassium 3.7 Chloride 104 Carbon Dioxide 19.3 L Anion Gap 15 BUN 16 Creatinine 0.82 Estim Creat Clear Calc 114.70 Est GFR (MDRD) Non-Af 96 BUN/Creatinine Ratio 19.6 Glucose 157 H Lactic Acid 1.8 Calcium 9.5 Total Bilirubin 1.36 H AST 23 ALT 29 Alkaline Phosphatase 57 Total Protein 7.3 Albumin 4.3 Globulin 3.1 Albumin/Globulin Ratio 1.4 Lipase 22 Urine Color Yellow Urine Clarity Sl. Cloudy Urine pH 6.0 Ur Specific [place] 1.025 Urine Protein 30 H Urine Glucose (UA) Normal Urine Ketones 15 H Urine Occult Blood 50 H Urine Nitrite Negative Urine Bilirubin Negative Urine Urobilinogen Normal Ur Leukocyte Esterase 100 H Urine RBC 0-5 SEEN Urine WBC 10-25 SEEN Ur Squamous Epith Cells 10-25 SEEN Urine Bacteria 1+ Urine Mucus 0 SEEN Urine Test Negative Radiography Diagnostic Testing: Clinical Impression(s) from Imaging Studies Abdomen/Pelvis CT 02/21/25 06:20 IMPRESSION: Right kidney shows moderate hydronephrosis. There is a 0.3 cm stone in the distal right ureter at the bladder base, image number 100/125. The left kidney shows a 0.2 cm nonobstructing stone in the midpole. Reading [facility] Discharge Plan Triage Chief Complaint: Abd Pain ED Provider: Jing Ramirez Dx/Rx/DC Orders Clinical Impression: Abdominal pain, right lower quadrant, Renal colic on right side Prescriptions: No Action NK Primary Care Provider: Tyrese Nguyen Referrals: Tyrese Nguyen DO [Primary Care Provider, Medical] Print Language: Setswana
[2025-02-21] MEDS: 0.9% Normal Saline (1000mL) 1,000 ML 999 ML IV (06:28)
[2025-02-21 06:30] LABS: Mucous, Urine 0 SEEN /hpf (<or=2+)
[2025-02-21 06:32] LABS: Hematocrit 40.5 % (37-47); Hemoglobin 14.0 g/dL (12.0-15.0); Immature Granulocytes Count 0.020 X10^3/uL (0.0-0.0); Mean Corp Hgb Conc 34.6 g/dL (32-36); Mean Corpuscular Volume 90.8 fL (81-99); Mean Platelet Vol. 11.0 fl (6.2-12.0); NRBC Flagged by Analyzer 0 % (0-5); Platelet Count 210 K/mm3 (150-450); RBC Distribution Width CV 12.3 % (11.6-14.6); RBC Distribution Width SD 40.7 fl (35.1-43.9); Red Blood Count 4.46 M/mm3 (4.2-5.4); White Blood Count 7.0 K/mm3 (4.4-11.0)
[2025-02-21 06:34] LABS: Color, Urine Yellow (Yellow); Glucose, Dipstick Normal (Normal); Ketone-Dipstick 15 mg/dl (Negative); Leukocyte Esterase-Dipstick 100 /ul (Negative); Nitrite-Dipstick Negative (Negative); Occult Blood-Urine 50 /ul (Negative); Protein-Dipstick 30 mg/dl (Negative); Specific Gravity, Urine 1.025 (1.002-1.030); Urine Bilirubin Dipstick Negative (Negative)
[2025-02-21 06:39] LABS: Internal QC Validated? YES +Cl - CLEAR BKGD; Pregnancy, Urine Negative Negative; Record Kit Lot#,Urine Preg 00009806070
--- OUTSIDE RECORDS SUMMARY | 2025-02-21 06:42 | XMS RPT_ITS | CCD ---
Author Organization [facility] Care Team Providers Care Shower Maid Name Role Phone Skip Rosado Unavailable Unavailable Skip Rosado Unavailable Unavailable Tyrese Torres Unavailable Unavailable Tyrese Torres DO Primary Care Provider Tyrese Torres Unavailable [phone] Leodan Carreon Unavailable Unavailable Tyrese Torres DO Primary Care Provider Tyrese Torres DO Primary Care Provider Ms. Leodan Carreon Attending Unavailable Dr. Tyrese Torres Primary Care Unava ilable Ms. Leodan Carreon Attending Unavailable Dr. Tyrese Torres Primary Care Unava ilable Tyrese Torres DO Primary Care Provider Tyrese Torres Primary Care Unavailable Silvia uV Attending Unavailable Earl Vences Attending Unavailable Tyrese Torres Primary Care Unavailable Renee Avina Admitting Unavail able Renee Avina Attending Unavail able Tyrese Torres Primary Care Unavailable Tyrese Torres DO Primary Care Provider Herbert 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.Meme CARTWRIGHT Unavailable Timmy 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.Luz Maria CARTWRIGHT Unavailable TYRESE TORRES Primary Care Unavailable TYRESE TORRES Primary Care Unavailable TENZIN CRUZ Referring Unavailable TYRESE TORRES Primary Care Unavailable Allergies Allergy Classification Reported Allergen(s) Allergy Type Date of Onset Reaction(s) Facility (20 sources) Seasonal allergy; Translations: [SEASONAL ALLERGIES] Propensity to adverse reactions 09-26-201 4 Other: See Comments [facility] Work Phone: Medications Current Medications Medication Drug Class(es) Dates Sig (Normalized) Sig (Original) amoxicillin 875 mg oral tablet (2 sources) Penicillin-class Antibacterial Start: 11-05-2021 End: 11-14-2021 take 1 tablet by mouth twice daily amoxicillin 875 mg oral tablet ; 1 tab(s) orally 2 times a day x 10 days Quantity: 20 Refills: 0 Ordered: 05-Nov-2021 Leodan Carreon Start: 05-Nov-2021 End: 14-Nov-2021 Generic Substitution Allowed Comments: Finish all this medication unless otherwise directed by prescriber. Start: 10-15-2021 End: 10-25-2021 take 1 capsule by mouth twice daily amoxicillin (POLYMOX, AMOXIL) 500 mg capsule Indications: Strep throat Take 1 capsule by mouth twice daily for 10 days. 20 capsule 0 10/15/2021 10/25/2021 Active Comment on above: Take 1 capsule by [facility] twice daily for 10 days. Finish all this medi cation unless otherwise directed by prescriber. Aspirin (14 sources) Platelet Aggregation Inhibitor, Nonsteroidal Anti-inflammatory Drug Start: 06-03-2022 Aspirin ([place]) 81 mg Capsule Active 81 MG DAILY June 03, 2022 12:00am Start: 06-03-2022 Aspirin Active MG June 03, 2022 12:00am Start: 05-13-2022 take 1 tablet by mouth once da solomon aspirin, enteric coated (ASPIRIN, ENTERIC COATED) 81 mg EC tablet Take 1 tablet by mouth once daily. 30 tablet 05/13/2022 Active Comment on above: Take 1 tablet by [facility] once daily. cephalexin 500 mg oral capsule (7 sources) Cephalosporin Antibacterial Start: 11-21-19 End: 12-01-19 take 1 capsule by mouth twice daily cephALEXin (KEFLEX) 500 mg capsule Indications: Strep throat Take 1 capsule by mouth twice daily for 10 days. 20 capsule 0 11/20/2021 11/30/2021 Active Comment on above: Take 1 capsule by [facility] twice daily for 10 days. cetirizine hydrochloride 10 mg oral tablet (20 sources) Histamine-1 Receptor Antagonist take 1 tablet by mouth once daily cetirizine (ZYRTEC) 10 mg tablet Take 10 mg by mouth once daily. Active ZyrTEC Quantity: 0 Refills: 0 Ordered: 05-Nov-2021 Marti Watkins Generic Substitution Allowed Comment on above: Take 10 mg by mouth once daily. doxycycline monohydrate 100 mg oral capsule (1 source) Tetracycline-class Drug Start: 04-22-20 End: 04-27-20 take 1 capsule by mouth twice daily doxycycline monohydrate (MONODOX) 100 mg capsule Indications: Subacute cough Take 1 capsule by mouth two times a day for 5 days. 10 capsule 04/22/2024 04/27/2024 Active fluticasone propionate 0.05 mg/actuat metered dose nasal spray (20 sources) Corticosteroid Start: 11-08-19 take 2 spray(s) by mouth once daily fluticasone (FLONASE) 50 mcg/actuation nasal spray Indications: Nasal congestion related to Use 2 Sprays in each nostril once daily. Rinse mouth after use. 1 Bottle 11 11/08/2019 Active Comment on above: Use 2 Sprays in each nostril once daily. Rinse mouth after use. MULTIVITAMIN ORAL (4 sources) MULTIVITAMIN ORA L Take by mouth. Active 1 (1 source) 1 Quant ity: 0 Refills: 0 Ordered: 05-Nov-2021 Marti Watkins Generic Substitution Allowed Vit,[id number] c (Prenatabs Fa) 1 TABLET tablet (3 sources) Start: 05-04-19 15 take 1 tablet by mouth once daily Vit,[id number] c (Prenatabs Fa) 1 TABLET tablet Active 1 TABLET PO DAILY May 04, 2014 12:00am Completed/Discontinued Medications Medication Drug Class(es) Dates Sig (Normalized) Sig (Original) [id number] 200 actuat albuterol 0.09 mg/actuat metered dose inhaler (3 sources) beta2-Adrenergic Agonist Start: 04-13-2024 End: 04-22-2024 take 2 puff(s) by inhalation every four hours as needed for wheezing albuterol HFA (PROVENTIL HFA, VENTOLIN HFA) 90 mcg/actuation inhaler Inhale 2 Puffs as instructed every 4 hours as needed for wheezing/shortness of breath. 6.7 g 04/13/2024 04/22/2024 Discontinued ascorbic acid 500 mg oral tablet (16 sources) Vitamin C End: 05-13-2022 take 1 tablet by mouth once daily ascorbic acid, vitamin C, (VITAMIN C) 500 mg tablet Take 500 mg by mouth once daily. 0 05/13/2022 Discontinued (Course of therapy completed) Comment on above: Take 500 mg by mouth once daily. lactobacillus rhamnosus gg [id number] unt oral capsule (16 sources) End: 05-13-2022 take 1 capsule by mouth once daily lactobacillus rhamnosus (CULTURELLE) 10 billion cell capsule Take 1 capsule by mouth once daily. 0 05/13/2022 Discontinued (Course of therapy completed) Comment on above: Take 1 capsule by [facility] once daily. LORazepam 0.5 mg oral tablet (20 sources) Benzodiazepine End: 04-22-2024 LORazepam (ATIVAN) 0.5 mg Take by mouth twice daily as needed. 04/22/2024 Discontinued Comment on above: Take by mouth twice daily as needed. olopatadine 1 mg/ml ophthalmic solution (20 sources) Histamine-1 Receptor Inhibitor Start: 02-02-2020 End: 04-22-2024 take 1 drop(s) into the eye(s) twice daily olopatadine (PATANOL) 0.1 % ophthalmic solution Indications: Allergic conjunctivitis of both eyes Use 1 Drop in both eyes twice daily. 1 Bottle 02/02/2020 04/22/2024 Discontinued Start: 02-02-2020 take 1 drop(s) into the eye(s) twice daily olopatadine (PATANOL) 0.1 % ophthalmic solution Indications: Allergic conjunctivitis of both eyes Use 1 Drop in both eyes twice daily. 1 Bottle 0 02/02/2020 Active Comment on above: Use 1 Drop in both e yes twice daily. vit no.[id number] 400 mcg- 25 mg chew (1 source) Start: 06-04-2019 End: 10-15-2021 vit no.[id number] 400 mcg- 25 mg chew prental multivitamin 27 mg iron- 800 mcg tablet (20 sources) End: 04-22-2024 take 1 tablet by mouth once daily prental multivitamin 27 mg iron- 800 mcg tablet Take 1 tablet by mouth once daily. 04/22/2024 Discontinued take 1 tablet by mouth once steven y prental multivitamin 27 mg iron- 800 mcg tablet Take 1 tablet by mouth once daily. Active take 1 tablet by mouth once steven y prental multivitamin 27 mg iron- 800 mcg tablet Take 1 tablet by mouth once daily. 0 Active Comment on above: Take 1 tablet by nils th once daily. Problems Active Problems Problem Classification Problem Date Documented Date Episodic/Chronic Acute bronchitis (1 source) Acute bronchitis, unspecified; Translations: [Acute bronchitis, unspecified] Onset: 02-04-2022 Episodic Anxiety disorders (20 sources) Generalized anxiety disorder; Translations: [Generalized anxiety disorder] Onset: 02-14-2021 02-14-2021 Chronic Headache; including migraine (1 source) Headache; including migraine; Translations: [Headache, unspecified] Onset: 11-05-2021 Other complications of (20 sources) Obesity; Translations: [Obesity complicating , unspecified trimester] Onset: 11-22-2021 Chronic Other complications of (1 source) Maternal obesity complicating , childbirth and the puerperium, antepartum; Translations: [Obesity complicating , second trimester] Chronic Other complications of (1 source) Obesity complicating , unspecified trimester; Translations: [Obesity complicating , childbirth, or the puerperium, antepartum condition or complication] Chronic Other complications of (1 source) Diseases of the respiratory system complicating , first trimester; Translations: [Diseases of the resp sys comp , first trimester] Onset: 02-04-2022 Episodic Other complications of (1 source) Supervision of with other poor reproductive or obstetric history, third trimester; Translations: [ with other poor obstetric history] Episodic Other complications of (2 sources) Reduced movement; Translations: [Decreased movements, third trimester, not applicable or unspecified] Episodic Other female genital disorders (3 sources) Vaginal discharge; Translations: [Other specified noninflammatory disorders of vagina] 03-24-2020 Episodic Other lower respiratory disease (2 sources) Cough; Translations: [Acute cough] 04-13-2024 Episodic Other lower respiratory disease (1 source) Cough; Translations: [Subacute cough] 04-22-2024 Episodic Other nutritional; endocrine; and metabolic disorders (20 sources) Obese class I; Translations: [Obesity, unspecified] Onset: 02-14-2021 02-14-2021 Chronic Other conditions (5 sources) tachycardia; Translations: [ affected by abnormality in (intrauterine) heart rate or rhythm before the onset of labor] Episodic Other screening for suspected conditions (not mental disorders or infectious disease) (2 sources) Patient encounter status; Translations: [Encounter for screening for nuchal translucency] Episodic Other upper respiratory disease (2 sources) Pain in throat 11-05-2021 Episodic Comment on above: SORE THROAT Residual codes; unclassified (2 sources) Gestation period, 13 weeks; Translations: [13 weeks gestation of ] Episodic Residual codes; unclassified (2 sources) Gestation period, 18 weeks; Translations: [18 weeks gestation of ] Episodic Residual codes; unclassified (1 source) 19 weeks gestation of ; Translations: [19 weeks gestation of ] Onset: 02-04-2022 Episodic Residual codes; unclassified (1 source) Gestation period, 22 weeks; Translations: [22 weeks gestation of ] Episodic Residual codes; unclassified (1 source) Gestation period, 28 weeks; Translations: [28 weeks gestation of ] Episodic Residual codes; unclassified (1 source) Gestation period, 30 weeks; Translations: [30 weeks gestation of ] Episodic Residual codes; unclassified (1 source) Gestation period, 32 weeks; Translations: [32 weeks gestation of ] Episodic Residual codes; unclassified (4 sources) Gestation period, 35 weeks; Translations: [35 weeks gestation of ] Episodic Residual codes; unclassified (6 sources) Gestation period, 39 weeks; Translations: [39 weeks gestation of ] 03-24-2020 Episodic Residual codes; unclassified (2 sources) Gestation period, 36 weeks; Translations: [36 weeks gestation of ] Episodic Residual codes; unclassified (1 source) Gestation period, 37 weeks; Translations: [37 weeks gestation of ] Episodic Residual codes; unclassified (2 sources) 35 weeks gestation of ; Translations: [ state, incidental] 06-03-2022 Episodic Residual codes; unclassified (1 source) Gestation period, 38 weeks; Translations: [38 weeks gestation of ] 06-19-2022 Episodic Residual codes; unclassified (1 source) 38 weeks gestation of ; Translations: [ state, incidental] 06-20-2022 Episodic Unclassified (1 source) Cough, unspecified; Translations: [Cough, unspecified] Onset: 02-04-2022 Unclassified (3 sources) Labor finding; Translations: [Active labor] 03-24-2020 Unclassified (1 source) Maternal care for other (suspected) abnormality and damage, cardiac anomalies, not applicable or unspecified; Translations: [Maternal care for other (suspected) abnormality and damage, cardiac anomalies, not applicable or unspecified] Onset: 06-13-2022 Unclassified (1 source) Acute cough; Translations: [Acute cough] Onset: 04-13-2024 Past or Other Problems Problem Classification Problem Date Documented Date Episodic/Chronic Calculus of urinary tract (4 sources) History of calculus of kidney; Translations: [Personal history of urinary calculi] Onset: 09-09-2013 Resolved: 02-13-2015 04-23-2021 Episodic Cancer of cervix (20 sources) Atypical squamous cells of undetermined significance on cervical Papanicolaou smear; Translations: [Atypical squamous cells of undetermined significance on cytologic smear of cervix (ASC-US)] Onset: 09-27-2013 04-23-2021 Episodic Diabetes or abnormal glucose tolerance complicating ; childbirth; or the puerperium (13 sources) Impaired glucose tolerance in ; Translations: [Abnormal glucose complicating ] Onset: 03-29-2022 03-29-2022 Episodic Malaise and fatigue (20 sources) Fatigue; Translations: [Other fatigue] Onset: 02-14-2021 02-14-2021 Episodic Other complications of (20 sources) Maternal drug exposure; Translations: [Supervision of other high risk pregnancies, first trimester] Onset: 11-22-2021 Episodic Other complications of (20 sources) History of delivery of macrosomal ; Translations: [Supervision of with other poor reproductive or obstetric history, unspecified trimester] Onset: 11-22-2021 Episodic Other ear and sense organ disorders (1 source) Otalgia, left ear; Translations: [Otalgia, left ear] Onset: 11-05-2021 Episodic Other and delivery including normal (20 sources) Normal ; Translations: [Encounter for supervision of other normal , second trimester] Onset: 09-13-2013 Resolved: 07-01-2014 06-11-2019 Episodic Other skin disorders (20 sources) Skin lesion; Translations: [Disorder of the skin and subcutaneous tissue, unspecified] Onset: 02-14-2021 02-14-2021 Episodic Other upper respiratory infections (7 sources) Sore throat symptom; Translations: [Acute pharyngitis, unspecified] Onset: 11-05-2021 Episodic Residual codes; unclassified (20 sources) H/O: depression; Translations: [Personal history of other complications of , childbirth and the puerperium] Onset: 11-22-2021 Episodic Residual codes; unclassified (20 sources) FH: Congenital anomaly; Translations: [Family history of other congenital malformations, deformations and chromosomal abnormalities] Onset: 11-22-2021 Episodic Results Test Name Value Interpretation Reference Range Facility [facility] 04-22-2024 CNOV Office Visit (UCWSTR ) KRISTA MAST ([id number]) 1990 F Date Time Provider Department 04/22/24 1:30 PM HOME POE [facility] During your visit today, we recorded the following information about you: Temperature Pulse Respiration Blood pressure 97.8 degrees 104/minute 18/minute 120/72 Weight 96.5 kg Home Poe MD 04/22/2024 12:15 PM Signed Patient presents with: Chest Congestion: cough, fever increased x 2 days HPI: Coughing for 3 weeks. Evaluated for cough 04/13/24 with negative CXR. 4 family members have had pneumonia. She has had worse cough with green production and fever the last 3 days. Positive symptoms: Cough, maybe Shortness of breath, Rhinorrhea, Fever, Negative symptoms: Sinus pressure, OTC: advil. She did not try albuterol. MEDICATIONS: Current Outpatient Medications Medication Sig MULTIVITAMIN ORAL Take by mouth. albuterol HFA (PROVENTIL HFA, VENTOLIN HFA) 90 mcg/actuation inhaler Inhale 2 Puffs as instructed every 4 hours as needed for wheezing/shortness of breath. (Patient not taking: Reported on 04/22/2024) aspirin, enteric coated (ASPIRIN, ENTERIC COATED) 81 mg EC tablet Take 1 tablet by mouth once daily. (Patient not taking: Reported on 04/13/2024) prental multivitamin 27 mg iron- 800 mcg tablet Take 1 tablet by mouth once daily. (Patient not taking: Reported on 04/13/2024) LORazepam (ATIVAN) 0.5 mg Take by mouth twice daily as needed. (Patient not taking: Reported on 04/13/2024) olopatadine (PATANOL) 0.1 % ophthalmic solution Use 1 Drop in both eyes twice daily. (Patient not taking: Reported on 04/13/2024) fluticasone (FLONASE) 50 mcg/actuation nasal spray Use 2 Sprays in each nostril once daily. Rinse mouth after use. (Patient not taking: Reported on 04/13/2024) cetirizine (ZYRTEC) 10 mg tablet Take 10 mg by mouth once daily. (Patient not taking: Reported on 04/13/2024) No current facility-administered medications for this visit. ALLERGIES: ALLERGIES Allergen Reactions Seasonal Allergies Other: See Comments Sinus problems and Itching, sore eyes VITALS: BP 120/72 Pulse 104 Temp 36.6 ?C (97.8 ?F) Resp 18 Wt 96.5 kg (212 lb 11.9 oz) LMP 09/26/2021 (Exact Date) SpO2 98% BMI 33.32 kg/m? PHYSICAL EXAM: GEN: Pleasant, in no acute distress. HEENT: PERRL, EOMI, conjunctiva clear Ears: canals clear. TMs without erythema, bulge, or effusion Sinuses: non-tender frontal sinus, non-tender maxillary sinuses Throat: moist mucous membranes, mild erythema, no exudate Neck: supple, no thyromegaly, no lymphadenopathy HEART: regular rate, regular rhythm, no murmurs LUNGS: clear to auscultation, no wheezes or crackles, no increased WOB ASSESSMENT/PLAN: 1. Subacute cough - ICD9: 786.2, ICD10: R05.2 Discussed worsening productive cough with fever can be pneumonia due to exposure or new viral illness the last few days. She understands the risks and benefits of treatment options and does not want to repeat her CXR but would like to start antibiotic. - DOXYCYCLINE MONOHYDRATE 100 MG CAPSULE (denies risk of , just completed LMP. Informed doxy should not be used with any risk of ). Home Poe MD Allergies As of Date: 04/22/2024 Noted Allergy Reaction SEASONAL ALLERGIES 01/21/2014 14 - Other: See Comments Comments: Sinus problems and Itching, sore eyes Date Reviewed: 04/22/2024 Reviewed by: Suzette Vallse MA - Fully Assessed Reason for Visit: Chest Congestion [236] Cmt: cough, fever increased x 2 days Primary Visit Diagnosis:Subacute cough [R05.2] Order(s):doxycycline monohydrate (MONODOX) 100 mg capsuleTake 1 capsule by mouth two times a day for 5 days.Disp: 10 capsuleRfl: 0 Prescriptions as of 04/22/2024 - doxycycline monohydrate (MONODOX) 100 mg capsule Take 1 capsule by mouth two times a day for 5 days. - MULTIVITAMIN ORAL Take by mouth. - aspirin, enteric coated (ASPIRIN, ENTERIC COATED) 81 mg EC tablet Take 1 tablet by mouth once daily. - fluticasone (FLONASE) 50 mcg/actuation nasal spray Use 2 Sprays in each nostril once daily. Rinse mouth after use. - cetirizine (ZYRTEC) 10 mg tablet Take 10 mg by mouth once daily. Problem List As Of Date 04/22/2024 Noted Resolved History of kidney stones [Z87.442] 09/09/2013 02/13/2015 Supervision of normal first [Z34.00] 09/13/2013 07/01/2014 ASCUS with positive high risk HPV cervical [R87*09/27/2013 Encounter for supervision of other normal pregn*03/06/2016 Well adult exam [Z00.00] 06/11/2019 JARED (generalized anxiety disorder) [F41.1] 02/14/2021 Situational anxiety [F41.8] 02/14/2021 Skin lesion [L98.9] 02/14/2021 Fatigue [R53.83] 02/14/2021 Obesity, Class I, BMI 30-34.9 [E66.811] 02/14/2021 Medication exposure during first trimester of p*11/22/2021 History of depression [Z87.59, Z86.5*11/22/2021 Family history of (more content not included)... Normal [facility] CNOVon 04-13-2024 CNOV Office Visit (WSTR ) KRISTA MAST ([id number]) 1990 F Date Time Provider Department 04/13/24 3:00 PM TENZIN CRUZ [facility] During your visit today, we recorded the following information about you: Temperature Pulse Respiration Blood pressure 98.1 degrees 92/minute 16/minute 110/68 Weight 97.3 kg Tenzin Cruz PA 04/13/2024 3:21 PM Signed This note was created using Buzzeroriter. Subjective Krista Mast is a 33 year old female. HPI 33-year-old female presents for cough, chest tightness x 2 weeks. Patient states she has had a cough and postnasal drainage for the past few weeks. She does not really have nasal congestion. She states that she feels some tightness in her chest. No wheezing. No history of COPD or asthma. No fevers. Several family members recently got diagnosed with pneumonia. Patient has not really tried anything [id number] for symptoms. No other complaint. 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 aspirin, enteric coated (ASPIRIN, ENTERIC COATED) 81 mg EC tablet Take 1 tablet by mouth once daily. (Patient not taking: Reported on 04/13/2024) prental multivitamin 27 mg iron- 800 mcg tablet Take 1 tablet by mouth once daily. (Patient not taking: Reported on 04/13/2024) LORazepam (ATIVAN) 0.5 mg Take by mouth twice daily as needed. (Patient not taking: Reported on 04/13/2024) olopatadine (PATANOL) 0.1 % ophthalmic solution Use 1 Drop in both eyes twice daily. (Patient not taking: Reported on 04/13/2024) fluticasone (FLONASE) 50 mcg/actuation nasal spray Use 2 Sprays in each nostril once daily. Rinse mouth after use. (Patient not taking: Reported on 04/13/2024) cetirizine (ZYRTEC) 10 mg tablet Take 10 mg by mouth once daily. (Patient not taking: Reported on 04/13/2024) FAMILY HISTORY Problem Relation Age of Onset Heart Mother Hypertension Mother Hypertension Father No Known Problems Brother Heart Maternal Grandmother other (uterine cancer) Maternal Grandmother Heart Maternal Grandfather CHF Diabetes Paternal Grandmother Heart Paternal Grandfather other (healthy) Daughter [place] ADD/ADHD Daughter Eczema Daughter Psoriasis Daughter No Known Problems Daughter other (hepatitis) Maternal Uncle Social History Tobacco Use Smoking status: Never Smokeless tobacco: Never Vaping Use Vaping status: Never Used Substance Use Topics Alcohol use: Not Currently Comment: rarely- not while Drug use: No Review of Systems Constitutional: Negative for chills and fever. HENT: Positive for postnasal drip. Negative for congestion, ear pain and sore throat. Respiratory: Positive for cough and chest tightness. Negative for shortness of breath. Cardiovascular: Negative for chest pain. Gastrointestinal: Negative for diarrhea and vomiting. Objective BP 110/68 Pulse 92 Temp 36.7 ?C (98.1 ?F) Resp 16 Wt 97.3 kg (214 lb 8.1 oz) LMP 09/26/2021 (Exact Date) SpO2 98% BMI 33.60 kg/m? Physical Exam Vitals and nursing note reviewed. Constitutional: General: She is not in acute distress. Appearance: Normal appearance. She is not toxic-appearing. HENT: Right Ear: Tympanic membrane and ear canal normal. Left Ear: Tympanic membrane and ear canal normal. Nose: Nose normal. Mouth/Throat: Mouth: Mucous membranes are moist. Eyes: Conjunctiva/sclera: Conjunctivae normal. Cardiovascular: Rate and Rhythm: Normal rate and regular rhythm. Pulmonary: Effort: Pulmonary effort is normal. Breath sounds: Normal breath sounds. No wheezing, rhonchi or rales. Skin: General: Skin is warm and dry. Neurological: Mental Status: She is alert. Assessment and Plan ASSESSMENT/PLAN: 1. Acute cough - ICD9: 786.2, ICD10: R05.1 - XR CHEST 2V FRONTAL/LAT- no acute radiographic abnormality. - suspect viral - RX albuterol inhaler - follow up with pcp if symptoms persist or worsen Diagnosis and treatment plan were discussed and questions were answered to the patient's satisfaction. Pt acknowledged understanding of concepts and follow up plan. Specific signs and symptoms that would indicate the need for higher level of care were discussed in detail warranting prompt ER evaluation. [facility] Good Allergies As of Date: 04/13/2024 Noted Allergy Reaction SEASONAL ALLERGIES 01/21/2014 14 - Other: See Comments Comments: Sinus problems and Itching, sore eyes Date Reviewed: 04/13/2024 Reviewed by: Suzette Valles MA - Fully Assessed Reason for Visit: Nasal (more content not included)... Normal [facility] 04-13-2024 [facility] Telephone (UCWSTR) KRISTA MAST ([id number]) 1990 F Date Time Provider Department 04/13/24 TENZIN CRUZ [facility] During your visit today, we recorded the following information about you: Tenzin Cruz PA 04/13/2024 3:22 PM Signed Please let patient know xray is normal- no pneumonia. I have sent an inhaler to her pharmacy for her. Suzette Valles MA 04/14/2024 9:54 AM Signed Patient given results and verbalized understanding of instructions given. Suzette Valles MA Allergies As of Date: 04/13/2024 Noted Allergy Reaction SEASONAL ALLERGIES 01/21/2014 14 - Other: See Comments Comments: Sinus problems and Itching, sore eyes Date Reviewed: 04/13/2024 Reviewed by: Suzette Valles MA - Fully Assessed Reason for Visit: Results [95] Prescriptions as of 04/14/2024 - MULTIVITAMIN ORAL Take by mouth. - albuterol HFA (PROVENTIL HFA, VENTOLIN HFA) 90 mcg/actuation inhaler Inhale 2 Puffs as instructed every 4 hours as needed for wheezing/shortness of breath. - aspirin, enteric coated (ASPIRIN, ENTERIC COATED) 81 mg EC tablet Take 1 tablet by mouth once daily. - prental multivitamin 27 mg iron- 800 mcg tablet Take 1 tablet by mouth once daily. - LORazepam (ATIVAN) 0.5 mg Take by mouth twice daily as needed. - olopatadine (PATANOL) 0.1 % ophthalmic solution Use 1 Drop in both eyes twice daily. - fluticasone (FLONASE) 50 mcg/actuation nasal spray Use 2 Sprays in each nostril once daily. Rinse mouth after use. - cetirizine (ZYRTEC) 10 mg tablet Take 10 mg by mouth once daily. Problem List As Of Date 04/13/2024 Noted Resolved History of kidney stones [Z87.442] 09/09/2013 02/13/2015 Supervision of normal first [Z34.00] 09/13/2013 07/01/2014 ASCUS with positive high risk HPV cervical [R87*09/27/2013 Encounter for supervision of other normal pregn*03/06/2016 Well adult exam [Z00.00] 06/11/2019 JARED (generalized anxiety disorder) [F41.1] 02/14/2021 Situational anxiety [F41.8] 02/14/2021 Skin lesion [L98.9] 02/14/2021 Fatigue [R53.83] 02/14/2021 Obesity, Class I, BMI 30-34.9 [E66.811] 02/14/2021 Medication exposure during first trimester of p*11/22/2021 History of depression [Z87.59, Z86.5*11/22/2021 Family history of defect [Z82.79] 11/22/2021 H/O macrosomia in infant in prior , cu*11/22/2021 Obesity during [O99.210] 11/22/2021 Abnormal glucose in , antepartum [O99.*03/29/2022 Encounter Status:Closed by SUZETTE VALLES on 04/14/24 Normal [facility] XR CHEST 2V FRONTAL/LATon XR CHEST 2V FRONTAL/LAT * * *Final Repor t* * * DATE OF EXAM: Apr 13 2024 3:16PM WOX [id number] - XR CHEST 2V FRONTAL/LAT / PROCEDURE REASON: Acute cough * * * * Physician Interpretation * * * * EXAMINATION: CHEST RADIOGRAPH (2 VIEW FRONTAL and LATERAL) CLINICAL HISTORY: Acute cough MQ: XC2_6 EXAM DATE/TIME: 04/13/2024 3:16 PM COMPARISON: No relevant prior studies available. RESULT: Lines, tubes, and devices: None. Lungs and pleura: No consolidation. No lung mass. No pleural effusion. No pneumothorax. Cardiomediastinal silhouette: Normal cardiomediastinal silhouette. Bones and soft tissues: Unremarkable. IMPRESSION: No acute radiographic abnormality. Cycle Specialist: [facility] Transcribe Date/Time: Apr 13 2024 3:17P Dictated by : TITUS SEBASTIAN MD This examination was interpreted and the report reviewed and electronically signed by: TITUS SEBASTIAN MD on Apr 13 2024 3:17PM EST [id number] Normal [facility] XR Chest PA and Lateralon Radiology Study observation (narrative) [facility] IMPRESSION: No acute radiographic abnormality. Cycle Specialist: [facility] Transcribe Date/Time: Apr 13 2024 3:17P Dictated by : TITUS SEBASTIAN MD This examination was interpreted and the report reviewed and electronically signed by: TITUS SEBASTIAN MD on Apr 13 2024 3:17PM EST DIVISION OF RADIOLOGY * * *Final Report* * * DATE OF EXAM: Apr 13 2024 3:16PM WOX [id number] - XR CHEST 2V FRONTAL/LAT / PROCEDURE REASON: Acute cough * * * * Physician Interpretation * * * * EXAMINATION: CHEST RADIOGRAPH (2 VIEW FRONTAL & LATERAL) CLINICAL HISTORY: Acute cough MQ: XC2_6 EXAM DATE/TIME: 04/13/2024 3:16 PM COMPARISON: No relevant prior studies available. RESULT: Lines, tubes, and devices: None. Lungs and pleura: No consolidation. No lung mass. No pleural effusion. No pneumothorax. Cardiomediastinal silhouette: Normal cardiomediastinal silhouette. Bones and soft tissues: Unremarkable. DIVISION OF RADIOLOGY Provider, Brendan Frey [facility] - 04/13/2024 * * *Final Report* * * DATE OF EXAM: Apr 13 2024 3:16PM WOX [id number] - XR CHEST 2V FRONTAL/LAT / PROCEDURE REASON: Acute cough * * * * Physician Interpretation * * * * EXAMINATION: CHEST RADIOGRAPH (2 VIEW FRONTAL & LATERAL) CLINICAL HISTORY: Acute cough MQ: XC2_6 EXAM DATE/TIME: 04/13/2024 3:16 PM COMPARISON: No relevant prior studies available. RESULT: Lines, tubes, and devices: None. Lungs and pleura: No consolidation. No lung mass. No pleural effusion. No pneumothorax. Cardiomediastinal silhouette: Normal cardiomediastinal silhouette. Bones and soft tissues: Unremarkable. IMPRESSION IMPRESSION: No acute radiographic abnormality. Cycle Specialist: [facility] Transcribe Date/Time: Apr 13 2024 3:17P Dictated by : TITUS SEBASTIAN MD This examination was interpreted and the report reviewed and electronically signed by: TITUS SEBASTIAN MD on Apr 13 2024 3:17PM EST [facility] XR Chest PA and LateralOrder ed By: Cc Provider on 04-13-2024 [facility] Discharge Instructionon 05-30 Discharge Instruction [facility] Medical Records Department [address] [place] [id number] Instructions for Home/Discharge Instructions 06/20/22 0830 MR#: [id number] Acct: [id number] Name: KRISTA MAST Rep #: [id number] : 1990 31 From: Valery Lockhart CNM PCP: Dr. Tyrese Torres, Status:ADM IN Discharge Instructions Diet Discharge Diet: No restrictions Activity Discharge Activity: Return to Normal Activity, May Shower and May Take a Tub Bath May resume sexual activity in: 4-6 weeks Weight Bearing Status: Weight bearing as tolerated Dressing / Incision Call your doctor if you observe: Inability to urinate, Using more than 1 pad per hour, Shortness of breath, Dizziness, Swelling in the ankles, Chest pain, Calf discomfort and Uncontrolled pain Follow Up Care When: Within 14 days Test Results: Test results from this visit will be discussed in further detail at your follow-up appointment, if applicable. Discharge Plan Admission Admit Date/Time: 06/19/22 09:45 Primary Reason for Your Visit: Labor and Delivery Attending Provider: Natalia Avina Primary Care Provider: Tyrese Torres Discharge Orders/Prescriptions Prescriptions: No Action Prenatabs FA 1 TABLET tablet 1 tab PO DAILY Vazalore 81 mg Capsule 81 mg DAILY Referrals / Follow Up: Tyrese Torres DO [Primary Care Provider] - Disposition Disposition (needs filled in before D/C Order can be placed): Home, Self Care 06/20/22 0831 [facility] Dr. Tyrese Torres DO Signed Normal [facility] ([facility]) Rupture Of Membraneson 06-19-2022 ROM Negative Normal Negative [facility] Comment on above: Result Comment: Amni otic fluid not present indicates No Rupture of Membranes at time of specimen collection. Performed By: #### L 205.1000 #### [facility] [address], [place], [id number] ROM Negative Normal Negative [facility] Comment on above: Result Comment: Amni otic fluid not present indicates No Rupture of Membranes at time of specimen collection. Performed By: #### L 205.1000 #### [facility] [address], [place], [id number] Absolute lymphocyte countOrd ered By: Louisa Avina on 06-19-2022 Lymphocytes Auto (Unsp spec) [#/Vol] 1.21 10*3/uL 0.83-4.51 [facility] Automated blood hematocrit ( percentage)Ordered By: Louisa Avina on 06-19-2022 Hematocrit (Bld) [Volume fraction] 37.7 % Normal 37-47 [facility] Comment on above: Performed By: #### B TS, L100.0100 #### [facility] [address] [place], [address] Basophil percentageOrdered B y: Louisa Avina on 06-19-2022 Basophils/100 WBC (Bld) 0.2 % Normal 0-1 [facility] Comment on above: Performed By: #### Zuleika TS, L100.0100 #### [facility] [address] [place], [address] Eosinophils/100 WBC (Bld) 0.2 % Normal 0-5 [facility] Comment on above: Performed By: #### Zuleika LUGO, L100.0100 #### [facility] [address] [place], [address] Neutrophils/100 WBC (Bld) 82.0 % High 47-70 [facility] Comment on above: Performed By: #### Zuleika LUGO, L100.0100 #### [facility] [address] [place], [address] WBC (Bld) [#/Vol] 12.3 10*3/uL High 4.4-11.0 [facility] Comment on above: Performed By: #### Zuleika LUGO, L100.0100 #### [facility] [address] [place], [address] Neutrophils (Bld) [#/Vol] 10.1 10*3/uL 2.0-7.7 [facility] Blood erythrocytes count (nu mber/volume)Ordered By: Louisa Mai on 06-19-2022 RBC (Bld) [#/Vol] 4.05 10*6/uL Low 4.2-5.4 [facility] Comment on above: Performed By: #### Zuleika LUGO, L100.0100 #### [facility] [address] [place], [address] Blood hemoglobin measurement (mass/volume)Ordered By: Louisa Mai on 06-19-2022 Hemoglobin (Bld) [Mass/Vol] 12.4 g/dL Normal 12.0-15.0 [facility] Comment on above: Performed By: #### Zuleika LUGO, L100.0100 #### [facility] [address] [place], [address] Blood lymphocytes/100 leukoc ytesOrdered By: Louisa Avina on 06-19-2022 Lymphocytes/100 WBC (Bld) 9.8 % Low 19-41 [facility] Comment on above: Performed By: #### Zuleika LUGO, L100.0100 #### [facility] [address] [place], [address] Blood monocytes/100 leukocyt esOrdered By: Louisa Avina on 06-19-2022 Monocytes/100 WBC (Bld) 7.2 % Normal 0-10 [facility] Comment on above: Performed By: #### Zuleika LUGO, L100.0100 #### [facility] [address] [place], [address] Blood platelet mean volumeOr dered By: Louisa Avina on 06-19-2022 Platelet mean volume (Bld) [Entitic vol] 11.0 fL Normal 6.2-12.0 [facility] Comment on above: Performed By: #### Zuleika LUGO, L100.0100 #### [facility] [address] [place], [address] CBC W/Diff, Automatedon 05-30 Absolute Lymph 1.21 X10 3/uL Normal 0.83-4.51 [facility] Comment on above: Performed By: #### Zuleika LUGO, L100.0100 #### [facility] [address] [place], [address] Absolute Neut 10.1 X10 3/uL High 2.0-7.7 [facility] Comment on above: Performed By: #### Zuleika LUGO, L100.0100 #### [facility] [address] [place], [address] IG% 0.600 Normal 0.0-0.9 [facility] Comment on above: Result Comment: IG% - Immature Granulocytes (promyelocytes, myelocytes and metamyelocytes) > 1% indicates that a LEFT SHIFT is Present. Performed By: #### Zuleika LUGO, L100.0100 #### [facility] [address] [place], [address] Nucleated RBC (Bld) [#/Vol] 0 10*3/uL Normal 0-5 [facility] Comment on above: Performed By: #### Zuleika LUGO, L100.0100 #### [facility] [address] [place], [address] RDW SD 45.0 fl High 35.1-43.9 [facility] Comment on above: Performed By: #### Zuleika LUGO, L100.0100 #### [facility] [address] [place], [address] CBC W/Diff, AutomatedOrdered By: Louisa Avina on 06-19-2022 Erythrocyte distribution width (RBC) [Ratio] 13.2 % Normal 11.6-14.6 [facility] Comment on above: Performed By: #### Zuleika LUGO, L100.0100 #### [facility] [address] [place], [address] MCH (RBC) [Entitic mass] 30.6 pg Normal 27.0-32.0 [facility] Comment on above: Performed By: #### Zuleika LUGO, L100.0100 #### [facility] [address] [place], [address] Determination of erythrocyte mean corpuscular volume (MCV)Ordered By: Louisa Avina on 06-19-2022 MCV (RBC) [Entitic vol] 93.1 fL Normal 81-99 [facility] Comment on above: Performed By: #### B TS, L100.0100 #### [facility] [address] [place], [place], [id number] H AND P Exam - OB/GYNon 05-30 H&P Exam - [employer] [facility] Medical Records Department [address] [place] [address] H P Exam - [employer] 06/19/22 1134 MR#: [id number] Acct: [id number] Name: KRISTA MAST Rep #: [id number] : 1990 31 From: Renee Avina MD PCP: Dr. Tyrese Torres, DO Status:ADM IN Location: [id number] HPI - General General Date of Admission: 06/19/22 Date of Service: 06/19/22 Chief Complaint: labor HPI Narrative KRISTA MAST, is a 31 F @ 38 weeks who presents c/o contractions. was found to be 4cm- very uncomfortable- kept for labor. PFSH PFSH Home Medications vits,calcium no.78-iron fumarate-folic acid 29 mg-1 mg tablet (Prenatabs FA) 1 tab PO DAILY 05/04/14 [History Last Taken 06/18/22 09:00] aspirin 81 mg capsule (Vazalore) 81 mg DAILY (obestity) 06/03/22 [History Last Taken 06/18/22 09:00] Allergy/AdvReac Type Severity Reaction Status Date / Time No Known Allergies Allergy Verified 06/19/22 09:32 Social History Smoking Status: Never smoker History Elective abortions Hx Para 3 Spontaneous abortions Hx # Term Pregnancies Ectopic pregnancies Hx # Pregnancies Multiple births # of living children Vital Signs Vital Signs Vital Signs: 06/19/22 09:26 06/19/22 09:26 06/19/22 09:26 Temperature Temperature Source Pulse Rate 102 H 109 H Blood Pressure 118/70 BP Systolic 118 BP Diastolic 70 Pulse Ox 06/19/22 09:26 06/19/22 09:26 06/19/22 09:36 Temperature Temperature Source Temporal Temporal Pulse Rate Blood Pressure BP Systolic BP Diastolic Pulse Ox 97 06/19/22 09:36 06/19/22 10:31 06/19/22 10:31 Temperature 97.9 F Temperature Source Pulse Rate 105 H Blood Pressure 120/78 BP Systolic 120 BP Diastolic 78 Pulse Ox 06/19/22 10:34 06/19/22 10:34 06/19/22 10:34 Temperature 98.0 F Temperature Source Temporal Pulse Rate Blood Pressure BP Systolic BP Diastolic Pulse Ox 100 06/19/22 10:57 06/19/22 10:57 06/19/22 10:59 Temperature Temperature Source Pulse Rate 106 H 110 H Blood Pressure BP Systolic BP Diastolic Pulse Ox 96 06/19/22 10:59 06/19/22 11:02 06/19/22 11:02 Temperature Temperature Source Pulse Rate 113 H Blood Pressure BP Systolic BP Diastolic Pulse Ox 93 96 06/19/22 11:05 06/19/22 11:05 06/19/22 11:12 Temperature Temperature Source Pulse Rate 113 H Blood Pressure 118/68 115/92 H BP Systolic 118 115 BP Diastolic 68 92 Pulse Ox 06/19/22 11:12 06/19/22 11:14 06/19/22 11:14 Temperature Temperature Source Pulse Rate 108 H 113 H Blood Pressure BP Systolic BP Diastolic Pulse Ox 99 06/19/22 11:15 06/19/22 11:15 06/19/22 11:17 Temperature Temperature Source Pulse Rate 105 H 99 Blood Pressure 125/66 H BP Systolic 125 BP Diastolic 66 Pulse Ox 06/19/22 11:17 06/19/22 11:20 06/19/22 11:20 Temperature Temperature Source Pulse Rate 102 H Blood Pressure 135/65 H BP Systolic 135 BP Diastolic 65 Pulse Ox 90 06/19/22 11:19 06/19/22 11:33 06/19/22 11:33 Temperature Temperature Source Pulse Rate 96 Blood Pressure 101/54 L BP Systolic 101 BP Diastolic 54 Pulse Ox 100 Weight Weight: 100.301 kg Body Mass Index (BMI) 34.6 Labs Labs Labs: Blood Type B POSITIVE Antibody Screen NEGATIVE Hct 37.7 % (37-47) Hgb 12.4 g/dL (12.0-15.0) Chlamydia DNA (MODESTO) Negative (Negative) Neisseria gonorrhoeae DNA (MODESTO) Negative (Negative) Rhogam given: No Assessment Plan (1) 38 weeks gestation of : PLAN: Plan Admit to [facility] FHR/TOCO Epidural if requested for pain Monitor VS Anticipate 06/19/22 1136 Cosigner Signature (if applicable): CC: Louisa Avina; Dr. Tyrese Torres, DO Signed Normal [facility] - Hematology and Cell countsOrdered By: Louisa Avina on 06-19-2022 Erythrocyte distribution width (RBC) [Entitic vol] 45.0 fL 35.1-43.9 [facility] Immature granulocytes/100 WBC (Bld) 0.600 % 0.0-0.9 [facility] Comment on above: IG% - Immature Granu locytes (promyelocytes, myelocytes and metamyelocytes) > 1% indicates that a LEFT SHIFT is Present. Nucleated RBC/100 WBC (Bld) [Ratio] 0 % 0-5 [facility] MCHC [Mass/volume] by Automa sunni countOrdered By: Louisa Avina on 06-19-2022 MCHC (RBC) [Mass/Vol] 32.9 g/dL Normal 32-36 [facility] Comment on above: Performed By: #### B TS, L100.0100 #### [facility] [address] [facility] [place], [address] No Panel InformationOrdered By: Dr. Vences on 06-19-2022 Vaginal Amniotic Fluid Detection Negative Negative [facility] Comment on above: Amniotic fluid not p resent indicates No Rupture of FetalMembranes at time of specimen collection. Operative Reporton 3 Operative Report [facility] Medical Records Department [address] [place] [address] Operative Report 06/19/22 1131 MR#: [id number] Acct: [id number] Name: KRISTA MAST Rep #: [id number] : 1990 31 From: Renee Avina MD PCP: Dr. Tyrese Torres, Status:ADM IN Location: DS055-4 Maternal Data Information Final LIZABETH: 07/03/22 Final LIZABETH Source: US <20 weeks Gestational age: 38 Vaginal Delivery Maternal Presentation Maternal Presentation: Active Labor Operative Information Date of Procedure: 06/19/22 Pre-Operative Diagnosis: term gestation, active labor Post-Operative Diagnosis: same, live female Surgery / Procedure Performed: Spontaneous Vaginal Delivery Type of Anesthesia: Epidural (did not get relief- was just placed when she SROM and progressed to complete. ) Estimated Blood Loss: 150 Time of Delivery: 11:21 Findings Description of Procedure: I was called notified that the patient was complete at the time of placement of her epidural with spontaneous rupture membranes. Upon my arrival at the hospital patient was +2 station uncontrolled pain. Good maternal pushing efforts delivered the infant's head followed by the anterior and posterior shoulders without complication. The infant was then placed on the mother's chest for immediate skin to skin. Delayed cord clamping for approximately 2 minutes was performed per patient request. Placenta was then delivered intact without complication. No repair indicated. Amniotic Fluid Description: Clear Placental Delivery Description: Spontaneous Placenta Disposition: [facility] Specimen(s) Removed: Placenta Cord Vessel Description: 3 Vessels Cord Entanglement: None Infant A Gender: Female (1 minute): 9 (5 minute): 9 Delayed Cord Clamping: Yes Post Vaginal Delivery Medications Given After Delivery: IV Pitocin Episiotomy Description: None Laceration: None Complication Complications: None 06/19/22 1134 Cosigner Signature (if applicable): CC: Louisa Avina; Dr. Tyrese Torres, Signed Normal [facility] Platelets bldOrdered By: Louisa Avina on 06-19-2022 Platelets (Bld) [#/Vol] 184 10*3/uL Normal 150-450 [facility] Comment on above: Performed By: #### B TS, L100.0100 #### [facility] [place], [address] Type AND Screenon 06-19-2022 ABO and Rh group Nom (Bld) Blood group B Rh(D) positive Normal [facility] Comment on above: Order Comment: Labor Performed By: #### B TS, L100.0100 #### [facility] [address] [place], [address] URINE OB DIP B/Oon 3 Glucose Ql (U) Negative Neg mg/dL [facility] Protein.monoclonal (U) [Mass/Vol] Negative Neg mg/dL [facility] OB Triage Progress Noteon OB Triage Progress Note [facility] Medical Records Department [address] [place] [address] OB Triage Progress Note 06/09/22 0854 MR#: [id number] Acct: [id number] Name: KRISTA MAST Rep #: [id number] : 1990 31 From: Silvia Vu CNM PCP: Dr. Tyrese Torres, DO Status:DEP CLI Y DOS: Location: WPOUT Progress Notes Progress Note: 35w5d with LIZABETH:07/03/22 Patient seen in office for routine OB visit. heart rate deceleration auscultated on doppler and placed on NST. tachycardia and then sent to labor and delivery for evaluation. Good movement, no leakage of flood or vaginal bleeding. Laboratory Studies: NST 140s, moderate variability, accels, no decels, Reactive Assessment Plan (1) 35 weeks gestation of : (2) tachycardia: PLAN: Plan 1) Reactive NST, no tachycardia 2) D/C home 06/09/22 0859 Date Silvia Vu CNM Cosigner Signature (if applicable): Date CC: TWILA Vu; Dr. Tyrese Torres, DO Signed Normal [facility] BIOPHYSICAL PROFILE US WHIon 06-05-2022 [facility] URINE OB DIP B/Oon 3 Glucose Ql (U) Negative Neg mg/dL [facility] Protein.monoclonal (U) [Mass/Vol] Negative Neg mg/dL [facility] URINE OB DIP B/Oon 3 Glucose Ql (U) Negative Neg mg/dL [facility] Protein.monoclonal (U) [Mass/Vol] Negative Neg mg/dL [facility] URINE OB DIP B/Oon 3 Glucose Ql (U) Negative Neg mg/dL [facility] Protein.monoclonal (U) [Mass/Vol] Negative Neg mg/dL [facility] URINE OB DIP B/Oon 3 Glucose Ql (U) Negative Neg mg/dL [facility] Protein.monoclonal (U) [Mass/Vol] Negative Neg mg/dL [facility] URINE OB DIP B/Oon 2 Glucose Ql (U) Negative Neg mg/dL [facility] Protein.monoclonal (U) [Mass/Vol] Negative Neg mg/dL [facility] URINE OB DIP B/Oon 2 Glucose Ql (U) Negative Neg mg/dL [facility] Protein.monoclonal (U) [Mass/Vol] Negative Neg mg/dL [facility] Provider Note - ED v3on 10-1 Provider Note - ED v3 Provider Note: Chart Review: ED NOTES ED NOTES: Presents for evaluation of URI. Symptoms including dry nonproductive cough, and fatigue that have been present for several days and refractory to OTC Mucinex and antihistamine. No fever, nasal congestion, sore throat, chills, loss of taste/smell, nausea, vomiting, abdominal pain, CP, or SOB. No exacerbating factors. No known COVID 19/flu exposure. Patient is 19 weeks . HISTORY OF PRESENTING ILLNESS KRISTA is a 31 year old Female and was seen by me at 04-Feb-2022 13:28. Triage Information: Most recent Vital Sign Value Date PAST MEDICAL HISTORY ALLERGIES/INTOLERANCE S: No Known Allergies HEALTH HISTORY: No documented data. OUTPATIENT MEDICATIONS: Home Medications Review Status for Reconciliation: Complete Med Status: Patient Currently Takes Medications Drug Name: 1 Instructions: null Drug Name: ZyrTEC Instructions: null Drug Name: amoxicillin 875 mg oral tablet Instructions: 1 tab(s) orally 2 times a day x 7 days Drug Name: albuterol 90 mcg/inh inhalation aerosol Instructions: 2 puff(s) inhaled 2 times a day as needed for cough SIGNIFICANT EVENTS: No documented data. 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 HENMT: Airway patent, ears with clear tympanic membranes bilaterally. Nasal mucosa clear. Mouth with normal mucosa. Throat has no vesicles, no oropharyngeal exudates and uvula is midline. Face with no lymph node enlargement. EYES: Clear bilaterally, pupils equal, round and reactive to light. CARDIOVASCULAR: Normal rate, regular rhythm. Heart sounds S1, S2. No murmurs, rubs or gallops. PMI non-displaced. RESPIRATORY: Breath sounds clear and equal bilaterally. NEUROLOGICAL: Alert and oriented, no focal deficits, no motor or sensory deficits. SKIN: Skin normal color for race, warm, dry and intact. No evidence of trauma. PSYCHIATRIC: Alert and oriented to person, place, time/situation. normal mood and affect. No apparent risk to self or others. CRITICAL CARE VITAL SIGNS: T PRBP SpO2O2(LPM) %FiO2 Method 04-Feb-2022 13:14:[id number]/ 80 97RA MDM MDM/ED COURSE: Differential Diagnosis: allergic rhinitis, influenza, rhinitis and sinusitis (URI, COVID 19, bronchitis) Discussed Findings with: patient Data Reviewed: vital signs Treatment Plan: Rx amoxicillin and albuterol inhaler. Patient's clinical presentation is otherwise unremarkable at this time. Patient is discharged with instructions to follow-up with primary care or seek emergency medical attention for worsening symptoms or any new concerns. DISPOSITION Diagnosis/Annotation: ED Dx Name:Acute bronchitis Code:J20.9 Disposition: discharged Type: home CONSULT CRITICAL CARE TIME Is this a critically ill patient: no Electronic Signatures: Leodan Carreon (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-[employer]) (Signed 04-Feb-2022 13:35) Authored: ED Notes, HPI, PMH, ROS, PE, Results/Vital Signs, MDM/ED Course, Clinical Impression, Attestation, Chart Review, Scores Last Updated: 04-Feb-2022 13:35 by Leodan Carreon (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-[employer]) Normal [facility] OBSTETRIC ULTRASOUND WHIon 1 [facility] URINE OB DIP B/Oon 2 Glucose Ql (U) Negative Neg mg/dL [facility] Protein.monoclonal (U) [Mass/Vol] Negative Neg mg/dL [facility] URINE OB DIP B/Oon 2 Glucose Ql (U) Negative Neg mg/dL [facility] Protein.monoclonal (U) [Mass/Vol] Negative Neg mg/dL [facility] STREP A MOLECULAR (POC)on Procedural Control Valid [facility] Strep A (POCT) Positive Abnormal Negative [facility] GROUP A STREP SCREEN-CULTURE on 11-05-2021 GROUP A STREP SCREEN-CULTURE GASCR CALLED TO NATHALIE ZAMUDIO, 11/07/2021 12:43 PATIENT: KRISTA MAST LOCATION: [address]#: [id number] : 88 AGE: SEX: F ORDERED BY: LEODAN CARREON SOURCE: Throat/Pharynx COLLECTED: 11/05/21 11:40 ANTIBIOTICS AT SAMUEL.: RECEIVED : 11/05/21 22:49 SITE: R E S U L T S GROUP A STREP SCREEN-CULTURE FINAL 11/07/21 11:33 ISOLATE1 : Group A streptococcus 4+ Normal [facility] Comment on above: Performed By: #### G ASCR #### [facility] [id number] [place] [address] Provider Note - ED v3on 10-26 Provider Note - ED v3 Provider Note: Chart Review ED NOTES ED NOTES: Patient presents for evaluation of sore throat, left ear pain, headache and fatigue that has been ongoing for the past 2 days. Patient states she completed a course of amoxicillin approximately 2 weeks ago for strep throat. She states she did change her toothbrush as instructed. She does state that she felt her symptoms completely resolved. She states that her current symptoms feel exactly like her prior illness. Pt has not attempted any otc meds. Denies any current fever, n/v/d, chest pains, nasal congestion, loss taste/smell, body aches, or any other associated symptoms or complaint. HISTORY OF PRESENTING ILLNESS KRISTA is a 30 year old Female and was seen by me at 05-Nov-2021 10:22. Triage Information: Most recent Vital Sign Value Date PAST MEDICAL HISTORY ALLERGIES/INTOLERANCE S: No Known Allergies HEALTH HISTORY: No documented data. OUTPATIENT MEDICATIONS: Home Medications Review Status for Reconciliation: Complete Med Status: Patient Currently Takes Medications Drug Name: 1 Instructions: null Drug Name: ZyrTEC Instructions: null Drug Name: amoxicillin 875 mg oral tablet Instructions: 1 tab(s) orally 2 times a day x 10 days SIGNIFICANT EVENTS: No documented data. [employer]ER: Is : no Is : no REVIEW OF SYSTEMS All other systems reviewed and are negative REVIEW OF SYSTEMS: Comments See HPI PHYSICAL EXAM CONSTITUTIONAL: Well appearing, well nourished, awake, alert, oriented to person, place, time/situation and in no apparent distress. HENMT: Airway patent, ears with clear tympanic membranes bilaterally. Nasal mucosa clear. Mouth with normal mucosa. Throat has mild erythema, and edema bilaterally with no oropharyngeal exudates and uvula is midline. Face with no lymph node enlargement. EYES: Clear bilaterally, pupils equal, round and reactive to light. CARDIOVASCULAR: Normal rate, regular rhythm. Heart sounds S1, S2. No murmurs, rubs or gallops. PMI non-displaced. RESPIRATORY: Breath sounds clear and equal bilaterally. NEUROLOGICAL: Alert and oriented, no focal deficits, no motor or sensory deficits. SKIN: Skin normal color for race, warm, dry and intact. No evidence of trauma. PSYCHIATRIC: Alert and oriented to person, place, time/situation. normal mood and affect. No apparent risk to self or others. CRITICAL CARE VITAL SIGNS: T PRBP SpO2O2(LPM) %FiO2 Method 05-Nov-2021 10:14:[id number] /80 98RA [facility] MDM/ED COURSE: Differential Diagnosis: allergic rhinitis, pharyngitis, rhinitis, sinusitis and tonsillitis (URI, COVID 19, viral illness) Discussed Findings with: patient Data Reviewed: vital signs Treatment Plan: Rx amoxicillin. Encouraged pt to change toothbrush after 3 days of antibiotic use, use warm salt water gargles, warm fluids and otc analgesics/cold remedies. Throat swab obtained for culture. Patient's clinical presentation is otherwise unremarkable at this time. Patient is discharged with instructions to follow-up with primary care or seek emergency medical attention for worsening symptoms or any new concerns. DISPOSITION Diagnosis/Annotation: ED Dx Name:Acute pharyngitis Code:J02.9 Disposition: discharged Type: home CONSULT CRITICAL CARE TIME Is this a critically ill patient: no Electronic Signatures for Addendum Section: Nathalie Zamudio (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-[facility]) (Signed Addendum 07-Nov-2021 12:44) Patient verified advised of positive Strep culture, patient to continue plan that was set with provider Greg Carreon CNP Electronic Signatures: Leodan Carreon (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-[facility]) (Signed 05-Nov-2021 10:54) Authored: ED Notes, HPI, PMH, ROS, PE, Results/Vital Signs, MDM/ED Course, Clinical Impression, Attestation, Chart Review, Scores Nathalie Zamudio (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-[facility]) (Signature Pending) Authored: PE, Attestation Last Updated: 07-Nov-2021 12:44 by Nathalie Zamudio (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-[facility]) [facility] Vital Signs Date Time Vital Sign Value Performing Clinician Facility 04-22-2024 11:51-0500 Body mass index (BMI) [Ratio] 33.32 kg/m2 Home Poe MD Work Phone: [facility] 04-22-2024 11:51-0500 Body temperature 97.81 [degF] Home Poe MD Work Phone: [facility] 04-22-2024 11:51-0500 Body weight 96.5 kg Home Poe MD Work Phone: [facility] 04-22-2024 11:51-0500 Diastolic blood pressure 72 mm[Hg] Home Poe MD Work Phone: [facility] 04-22-2024 11:51-0500 Heart rate 104 /min Home Poe MD Work Phone: [facility] 04-22-2024 11:51-0500 Respiratory rate 18 /min Home Poe MD Work Phone: [facility] 04-22-2024 11:51-0500 SaO2% (BldA) [Mass fraction] 98 % Home Poe MD Work Phone: [facility] 04-22-2024 11:51-0500 Systolic blood pressure 120 mm[Hg] Home Poe MD Work Phone: [facility] 04-13-2024 14:52-0500 Body mass index (BMI) [Ratio] 33.6 kg/m2 Krislyn Aberegg PA Work Phone: [facility] 04-13-2024 14:52-0500 Body temperature 98.1 [degF] Krislyn Aberegg PA Work Phone: [facility] 04-13-2024 14:52-0500 Body weight 97.3 kg Krislyn Aberegg PA Work Phone: [facility] 04-13-2024 14:52-0500 Diastolic blood pressure 68 mm[Hg] Krislyn Aberegg PA Work Phone: [facility] 04-13-2024 14:52-0500 Heart rate 92 /min Krislyn Aberegg PA Work Phone: [facility] 04-13-2024 14:52-0500 Respiratory rate 16 /min Krislyn Aberegg PA Work Phone: [facility] 04-13-2024 14:52-0500 SaO2% (BldA) [Mass fraction] 98 % Krislyn Aberegg PA Work Phone: [facility] 04-13-2024 14:52-0500 Systolic blood pressure 110 mm[Hg] Krislyn Aberegg PA Work Phone: [facility] 06-20-2022 12:41-0500 Diastolic blood pressure 55 mm[Hg] [facility] 06-20-2022 12:41-0500 Heart rate 78 /min [facility] 06-20-2022 12:41-0500 Systolic blood pressure 107 mm[Hg] [facility] 06-20-2022 12:40-0500 Body temperature 98.1 [degF] [facility] 06-20-2022 12:40-0500 Respiratory rate 16 /min [facility] 06-20-2022 08:15-0500 SaO2% (BldA) [Mass fraction] 97 % [facility] 06-19-2022 09:19-0500 Body height 170.18 cm [facility] 06-19-2022 09:19-0500 Body mass index (BMI) [Ratio] 34.6 kg/m2 [facility] 06-19-2022 09:19-0500 Body weight 100.3 kg [facility] 06-19-2022 00:02-0500 Diastolic blood pressure 70 mm[Hg] [facility] 06-19-2022 00:02-0500 Heart rate 100 /min [facility] 06-19-2022 00:02-0500 Systolic blood pressure 114 mm[Hg] [facility] 06-18-2022 23:46-0500 Body temperature 98.7 [degF] [facility] 06-18-2022 23:35-0500 Body height 170.18 cm [facility] 06-18-2022 23:35-0500 Body mass index (BMI) [Ratio] 34.8 kg/m2 [facility] 06-18-2022 23:35-0500 Body weight 100.89 kg [facility] 06-12-2022 14:46-0500 Body weight 100.7 kg Renee Mai MD Work Phone: [facility] 06-12-2022 14:46-0500 Diastolic blood pressure 64 mm[Hg] Renee Mai MD Work Phone: [facility] 06-12-2022 14:46-0500 Systolic blood pressure 112 mm[Hg] Renee Mai MD Work Phone: [facility] 06-05-2022 13:54-0500 Body weight 99.34 kg Silvia Vu APRN.CNM Work Phone: [facility] 06-05-2022 13:54-0500 Diastolic blood pressure 64 mm[Hg] Silvia Vu APRN.CNM Work Phone: [facility] 06-05-2022 13:54-0500 Systolic blood pressure 116 mm[Hg] Silvia Vu APRN.CNM Work Phone: [facility] 06-04-2022 11:27-0500 Body weight 98.88 kg Earl Vences MD Work Phone: [facility] 06-04-2022 11:27-0500 Diastolic blood pressure 64 mm[Hg] Earl Vences MD Work Phone: [facility] 06-04-2022 11:27-0500 Systolic blood pressure 110 mm[Hg] Earl Vences MD Work Phone: [facility] 06-03-2022 12:59-0500 Body height 170.18 cm [facility] 06-03-2022 12:59-0500 Body mass index (BMI) [Ratio] 34.2 kg/m2 [facility] 06-03-2022 12:59-0500 Body weight 99.33 kg [facility] 06-03-2022 12:05-0500 Body temperature 99.4 [degF] [facility] 05-30-2022 10:42-0500 Body weight 98.88 kg Renee Mai MD Work Phone: [facility] 05-30-2022 10:42-0500 Diastolic blood pressure 64 mm[Hg] Renee Mai MD Work Phone: [facility] 05-30-2022 10:42-0500 Systolic blood pressure 104 mm[Hg] Renee Mai MD Work Phone: [facility] 05-13-2022 11:10-0500 Body weight 99.79 kg Silvia Vu APRN.CNM Work Phone: [facility] 05-13-2022 11:10-0500 Diastolic blood pressure 64 mm[Hg] Silvia Vu 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.CNM Work Phone: [facility] 05-13-2022 11:10-0500 Systolic blood pressure 110 mm[Hg] Islvia Vu 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.CNM Work Phone: [facility] 04-26-2022 10:41-0500 Body weight 95.71 kg Renee Mai MD Work Phone: [facility] 04-26-2022 10:41-0500 Diastolic blood pressure 64 mm[Hg] Renee Mai MD Work Phone: [facility] 04-26-2022 10:41-0500 Systolic blood pressure 118 mm[Hg] Renee Mai MD Work Phone: [facility] 04-12-2022 14:37-0500 Body weight 94.8 kg Renee Mai MD Work Phone: [facility] 04-12-2022 14:37-0500 Diastolic blood pressure 70 mm[Hg] Renee Mai MD Work Phone: [facility] 04-12-2022 14:37-0500 Systolic blood pressure 116 mm[Hg] Renee Mai MD Work Phone: [facility] 02-28-2022 10:26-0400 Body weight 92.08 kg Renee Mai MD Work Phone: [facility] 02-28-2022 10:26-0400 Diastolic blood pressure 62 mm[Hg] Renee Mai MD Work Phone: [facility] 02-28-2022 10:26-0400 Systolic blood pressure 104 mm[Hg] Renee Mai MD Work Phone: [facility] 02-01-2022 14:31-0400 Body weight 90.27 kg Renee Mai MD Work Phone: [facility] 02-01-2022 14:31-0400 Diastolic blood pressure 62 mm[Hg] Renee Mai MD Work Phone: [facility] 02-01-2022 14:31-0400 Systolic blood pressure 110 mm[Hg] Renee Mai MD Work Phone: [facility] 12-27-2021 15:53-0400 Body weight 89.81 kg Renee Mai MD Work Phone: [facility] 12-27-2021 15:53-0400 Diastolic blood pressure 72 mm[Hg] Renee Mai MD Work Phone: [facility] 12-27-2021 15:53-0400 Systolic blood pressure 114 mm[Hg] Renee Mai MD Work Phone: [facility] 11-28-2021 15:17-0400 Body height 170.2 cm Renee Mai MD Work Phone: [facility] 11-28-2021 15:17-0400 Body weight 91.63 kg Renee Mai MD Work Phone: [facility] 11-28-2021 15:17-0400 Diastolic blood pressure 70 mm[Hg] Renee Mai MD Work Phone: [facility] 11-28-2021 15:17-0400 Systolic blood pressure 110 mm[Hg] Renee Mai MD Work Phone: [facility] 11-20-2021 11:30-0400 Body temperature 98.29 [degF] Pati Podlogar 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 Work Phone: [facility] 11-20-2021 11:30-0400 Body weight 91.35 kg Pati Podlogar 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 Work Phone: [facility] 11-20-2021 11:30-0400 Diastolic blood pressure 70 mm[Hg] Pati Podlogar 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 Work Phone: [facility] 11-20-2021 11:30-0400 Heart rate 89 /min Pati Podlogar 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 Work Phone: [facility] 11-20-2021 11:30-0400 Respiratory rate 18 /min Pati Podlogar 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 Work Phone: [facility] 11-20-2021 11:30-0400 SaO2% (BldA) [Mass fraction] 100 % Pati Podlogar 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 Work Phone: [facility] 11-20-2021 11:30-0400 Systolic blood pressure 112 mm[Hg] Pati Podlogar 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 Work Phone: [facility] 11-05-2021 12:14-0400 Body height 170 cm Tyrese Torres Other Phone: [facility] 11-05-2021 12:14-0400 Body temperature 97.7 [degF] Tyrese Torres Other Phone: [facility] 11-05-2021 12:14-0400 Diastolic blood pressure 80 mm[Hg] Tyrese Torres Other Phone: [facility] 11-05-2021 12:14-0400 Heart rate 103 /min Tyrese Torres Other Phone: [facility] 11-05-2021 12:14-0400 SaO2% (BldA) [Mass fraction] 98 % Tyrese Torres Other Phone: [facility] 11-05-2021 12:14-0400 Systolic blood pressure 113 mm[Hg] Tyrese Torres Other Phone: [facility] 10-15-2021 08:54-0400 Body temperature 99.1 [degF] 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 Work Phone: [facility] 10-15-2021 08:54-0400 Diastolic blood pressure 82 mm[Hg] Noemy Worleyagen 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 Work Phone: [facility] 10-15-2021 08:54-0400 Heart rate 119 /min 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 Work Phone: [facility] 10-15-2021 08:54-0400 Respiratory rate 18 /min 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 Work Phone: [facility] 10-15-2021 08:54-0400 SaO2% (BldA) [Mass fraction] 99 % 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 Work Phone: [facility] 10-15-2021 08:54-0400 Systolic blood pressure 112 mm[Hg] Noemy Camarillo 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 Work Phone: [facility] Encounters Encounter Date Encounter Type Care Provider Facility Start: 04-22-2024 End: 04-22-2024 Office outpatient visit 25 minutes Home Poe MD Work Phone: [facility] Comment on above: Subacute cough (Prim sher Dx) Start: 04-22-2024 End: 04-22-2024 ambulatory TYRESE Freddy TORRES Facility:[facility] Start: 04-13-2024 End: 04-13-2024 ambulatory [facility] Facility:[facility] Start: 04-13-2024 End: 04-13-2024 Patient encounter procedure Tenzin ADAM Work Phone: [facility] Comment on above: Acute cough (Primary Dx) Start: 04-13-2024 End: 04-13-2024 Subsequent hospital visit by physician Xr [facility] Work Phone: Radiology Comment on above: Acute cough [R05.1] Start: 04-13-2024 End: 04-14-2024 Telephone encounter Tenzin ADAM Work Phone: [facility] Comment on above: Results Start: 06-21-2022 ambulatory Renee Mai MD Work Phone: OB/Gynecology Comment on above: Hemorrhoids Start: 06-19-2022 End: 06-20-2022 Evaluation and management of inpatient Renee Avina Facility:[facility] Start: 06-19-2022 End: 06-20-2022 Evaluation and management of inpatient [facility] Start: 06-19-2022 End: 06-19-2022 ambulatory Earl Vences Facility:[facility] Start: 06-18-2022 End: 06-19-2022 ambulatory [facility] Work Phone: Start: 06-18-2022 End: 06-19-2022 Patient encounter procedure [facility] Outpatients Start: 06-12-2022 End: 06-12-2022 Patient encounter procedure Renee Mai MD Work Phone: OB/Gynecology Comment on above: Obesity during pregn curly (Primary Dx); H/O macrosomia in in prior , currently ; 37 weeks gestation of Start: 06-05-2022 End: 06-05-2022 Patient encounter procedure Hilario Whitfield MD Work Phone: Maternal Medicine Comment on above: Decreased move ments in third trimester, single or unspecified fetus (Primary Dx); Maternal obesity, antepartum; 36 weeks gestation of 36 weeks gestation o f (Primary Dx) Start: 06-04-2022 End: 06-04-2022 Patient encounter procedure Earl Vences MD Work Phone: OB/Gynecology Comment on above: 35 weeks gestation o f (Primary Dx); Decreased movements in third trimester, single or unspecified fetus Start: 06-03-2022 End: 06-03-2022 ambulatory Tyrese Torres Facility:[facility] Start: 06-03-2022 End: 06-03-2022 ambulatory [facility] Work Phone: Start: 06-03-2022 End: 06-03-2022 Patient encounter procedure [facility] Start: 05-30-2022 End: 05-30-2022 Patient encounter procedure Renee Mai MD Work Phone: OB/Gynecology Comment on above: Obesity during pregn curly (Primary Dx); tachycardia before the onset of labor; H/O macrosomia in in prior , currently ; 35 weeks gestation of Start: 05-13-2022 End: 05-13-2022 Patient encounter procedure Silvia Vu APRN.CNM Work Phone: OB/Gynecology Comment on above: 32 weeks gestation o f (Primary Dx) Start: 04-26-2022 End: 04-26-2022 Patient encounter procedure Renee Mai MD Work Phone: OB/Gynecology Comment on above: Obesity during pregn curly (Primary Dx); H/O macrosomia in in prior , currently ; 30 weeks gestation of Start: 04-12-2022 End: 04-12-2022 Patient encounter procedure Renee Mai MD Work Phone: OB/Gynecology Comment on above: History of macrosomi a in in prior , currently , third trimester (Primary Dx); 28 weeks gestation of Start: 02-28-2022 End: 02-28-2022 Patient encounter procedure Renee Mai MD Work Phone: OB/Gynecology Comment on above: Obesity during pregn curly (Primary Dx); H/O macrosomia in infant in prior , currently ; 22 weeks gestation of Start: 02-04-2022 End: 02-04-2022 Emergency department patient visit Ms. Leodan Carreon Facility:[id number] Start: 02-01-2022 End: 02-01-2022 Patient encounter procedure Ariana Venegas MD Work Phone: Maternal Medicine Comment on above: Encounter for anatomic survey (Primary Dx); Obesity complicating , second trimester; 18 weeks gestation of Obesity during pregn curly (Primary Dx); H/O macrosomia in infant in prior , currently ; 18 weeks gestation of Start: 01-11-2022 ambulatory Renee Mai MD Work Phone: OB/Gynecology Comment on above: Headache Start: 01-07-2022 Telephone encounter Ariana arechiga MD Work Phone: Maternal Medicine Comment on above: NIPT results Start: 12-27-2021 End: 12-27-2021 Patient encounter procedure Ariana Venegas MD Work Phone: Maternal Medicine Comment on above: Encounter for (NT) n uchal translucency scan (Primary Dx); 13 weeks gestation of Encounter for superv ision of other normal in second trimester (Primary Dx); Obesity in ; 13 weeks gestation of Start: 11-28-2021 End: 11-28-2021 Patient encounter procedure Renee Mai MD Work Phone: OB/Gynecology Comment on above: Encounter for superv ision of other normal in first trimester (Primary Dx); Obesity in Encounter for superv ision of other normal in first trimester (Primary Dx) Start: 11-27-2021 ambulatory Tyrese Oleary son DO Work Phone: [facility] Comment on above: Strep Start: 11-25-2021 ambulatory Tyrese Oleary son DO Work Phone: [facility] Comment on above: Continuous Strep Start: 11-22-2021 End: 11-22-2021 Nursing evaluation of patient and report Nurse [facility] Work Phone: OB/Gynecology Comment on above: H/O macrosomia in in daly in prior , currently (Primary Dx); Medication exposure during first trimester of ; History of depression; Family history of defect; Obesity during Start: 11-22-2021 Telephone encounter Shanthi davey MD Work Phone: OB/Gynecology Comment on above: strep throat on preg vania Start: 11-20-2021 End: 11-20-2021 Patient encounter procedure Pati Sinha APRN.CNP Work Phone: [facility] [place] Comment on above: Strep throat (Primar y Dx) Start: 11-05-2021 End: 11-05-2021 Emergency department patient visit Leodan Carreon [facility] Start: 10-15-2021 End: 10-15-2021 Office outpatient visit 15 minutes Noemy Camarillo APRN.[employer] Work Phone: [facility] [place] Comment on above: Strep throat (Primar y Dx); Sore throat Start: 06-11-2019 Patient encounter status Jeffrey luz Marquise FRIAS.[employer] Work Phone: [facility] Work Phone: Start: 05-03-2017 End: 05-04-2017 Ambulatory [facility] Facility:[facility] Procedures Date Procedure Procedure Detail Performing Clinician Start: 04-13-2024 Radiologic exam ches t 2 views Tenzin ADAM Work Phone: Start: 06-12-2022 URINE OB DIP B/O Renee Mai MD Work Phone: Start: 06-05-2022 URINE OB DIP B/O Bogdan Vu APRN.CNM Work Phone: Start: 06-05-2022 biophysical pr ofile non-stress testing Silvia Vu APRN.CNM Work Phone: Start: 06-04-2022 URINE OB DIP B/O Earl Vences MD Work Phone: Start: 05-30-2022 URINE OB DIP B/O Renee Mai MD Work Phone: Start: 05-13-2022 URINE OB DIP B/O Bogdan Vu APRN.CNM Work Phone: Start: 04-26-2022 URINE OB DIP B/O Renee Mai MD Work Phone: Start: 02-28-2022 URINE OB DIP B/O Renee Mai MD Work Phone: Start: 02-01-2022 URINE OB DIP B/O Renee Mai MD Work Phone: Start: 02-01-2022 Us preg uterus after 1st trimest / gestation Renee Mai MD Work Phone: Start: 12-27-2021 URINE OB DIP B/O Renee Mai MD Work Phone: Start: 12-27-2021 Us nuchal translucency 1st gestation Renee Mai MD Work Phone: Start: 11-20-2021 STREP A MOLECULAR (POC) Pati Podlogallen 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 Work Phone: Start: 02-12-2021 Adult depression scr eening assessment Noemy Camarillo 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 Work Phone: Plan of Treatment Date Care Activity Detail Author Start: 04-26-2032 Urine microalbumin profile [facility] Start: 07-22-2026 Urine microalbumin profile DTAP,TDAP,TD (3 - Td or Tdap) [facility] Start: 06-11-2024 PAP TESTING PAP TESTING [facility] Start: 06-11-2024 Screening for malign ant neoplasm of cervix Cervical Cancer Screening [facility] Start: 12-28-2023 Covid-19 Vaccine ( season) Covid-19 Vaccine () [facility] Start: 12-28-2023 Influenza vaccination Influenza Vacc ine (#1) [facility] Start: 06-20-2022 Patient discharge [facility] Start: 06-19-2022 Administration of medication [facility] Start: 06-19-2022 Application of ice collar, cap or bag [facility] Start: 06-19-2022 Catheterization of vein [facility] Start: 06-19-2022 Introduction of urin sher catheter [facility] Start: 06-19-2022 Measuring intake and output [facility] Start: 06-19-2022 Notification of physician [facility] Start: 06-19-2022 Procedure discontinued [facility] Start: 06-19-2022 Provision of activit y privileges [facility] Start: 06-19-2022 Vital signs measurements [facility] Start: 06-19-2022 [facility] Start: 06-19-2022 Admission procedure [facility] Start: 06-19-2022 Consultation [facility] Start: 06-18-2022 Nonstress test [facility] Start: 06-18-2022 Obstetric monitoring [facility] Start: 06-18-2022 Vital signs measurements [facility] Start: 06-18-2022 [facility] Start: 06-03-2022 Nonstress test [facility] Start: 06-03-2022 Obstetric monitoring [facility] Start: 06-03-2022 Vital signs measurements [facility] Start: 06-03-2022 [facility] Start: 04-28-2022 DEPRESSION ASSESSMENT DEPRESSION ASS ESSMENT [facility] Start: 04-12-2022 End: 04-12-2023 OBSTETRIC ULTRASOUND WHI OBSTETRIC ULTRASOUND WHI Anc Imaging Routine 28 weeks gestation of History of macrosomia in in prior , currently , third trimester Expected: 04/12/2022, Expires: 04/12/2023 [facility] Work Phone: Comment on above: Expected: 04/12/2022 , Expires: 04/12/2023 Start: 02-12-2022 Adult depression screening assessment DEPRESSION SCREENING [facility] Start: 02-01-2022 End: 04-03-2022 ALPHA FETOPRO MATERNAL [facility] Work Phone: Comment on above: Expected: 02/01/2022 , Expires: 04/03/2022 Start: 12-27-2021 Influenza vaccination C [facility] Start: 11-28-2021 End: 01-28-2022 CBC panel - Blood by Automated count CBC Lab Routine Encounter for supervision of other normal in first trimester Obesity in Expected: 11/28/2021, Expires: 01/28/2022 [facility] Work Phone: Comment on above: Expected: 11/28/2021 , Expires: 01/28/2022 Start: 11-28-2021 End: 01-28-2022 Chromosome 21 trisomy [Presence] in Blood or Tissue by Cytogenetics [id number] [id number] Lab Routine Encounter for supervision of other normal in first trimester Expected: 11/28/2021, Expires: 01/28/2022 [facility] Work Phone: Comment on above: Expected: 11/28/2021 , Expires: 01/28/2022 Start: 11-28-2021 End: 01-28-2022 Hemoglobin A1c in Blood HGB A1C Lab Routine Encounter for supervision of other normal in first trimester Obesity in Expected: 11/28/2021, Expires: 01/28/2022 [facility] Work Phone: Comment on above: Expected: 11/28/2021 , Expires: 01/28/2022 Start: 11-28-2021 End: 01-28-2022 Hepatitis B virus surface Ab [Presence] in Serum by Immunoassay HEP B SURF AG SCRN Lab Routine Encounter for supervision of other normal in first trimester Obesity in Expected: 11/28/2021, Expires: 01/28/2022 [facility] Work Phone: Comment on above: Expected: 11/28/2021 , Expires: 01/28/2022 Start: 11-28-2021 End: 01-28-2022 Hepatitis C virus Ab [Presence] in Serum HEP C AB IA W/CONF SCRN Lab Routine Encounter for supervision of other normal in first trimester Obesity in Expected: 11/28/2021, Expires: 01/28/2022 [facility] Work Phone: Comment on above: Expected: 11/28/2021 , Expires: 01/28/2022 Start: 11-28-2021 End: 01-28-2022 HIV 1+2 Ab [Presence] in Serum or Plasma by Immunoassay HIV 1 2 COMBO(AG/AB),WITH REFLEX TO DIFFERENTIATION Lab Routine Encounter for supervision of other normal in first trimester Obesity in Expected: 11/28/2021, Expires: 01/28/2022 [facility] Work Phone: Comment on above: Expected: 11/28/2021 , Expires: 01/28/2022 Start: 11-28-2021 End: 01-28-2022 RUBELLA IGG AB RUBELLA IGG AB Lab Routine Encounter for supervision of other normal in first trimester Obesity in Expected: 11/28/2021, Expires: 01/28/2022 [facility] Work Phone: Comment on above: Expected: 11/28/2021 , Expires: 01/28/2022 Start: 11-28-2021 End: 01-28-2022 SYPHILIS TOTAL W/REFLEX SYPHILIS TOTAL W/REFLEX Lab Routine Encounter for supervision of other normal in first trimester Obesity in Expected: 11/28/2021, Expires: 01/28/2022 [facility] Work Phone: Comment on above: Expected: 11/28/2021 , Expires: 01/28/2022 Start: 11-28-2021 End: 01-28-2022 TYPE + SCREEN TYPE + SCREEN Blood Bank Routine Encounter for supervision of other normal in first trimester Obesity in Expected: 11/28/2021, Expires: 01/28/2022 [facility] Work Phone: Comment on above: Expected: 11/28/2021 , Expires: 01/28/2022 Start: 04-28-2021 DEPRESSION ASSESSMENT DEPRESSION ASS ESSMENT [facility] Start: 02-29-2020 HPV TESTING HPV TESTING [facility] Start: 2008 Hepatitis B Vaccine (1 of 3 - 19+ 3-dose series) Hepatitis B Vaccine (1 of 3 - 19+ 3-dose series) [facility] Start: 12-13-2007 Depression Screening Depression Scre ening [facility] Start: 1994 COVID-19 VACCINE (#1) COVID-19 VACCI NE (#1) [facility] Start: 06-14-1990 COVID-19 VACCINE (#1) COVID-19 VACCI NE (#1) [facility] Start: 1989 HEPATITIS B (1 of 3 - 3-dose series) HEPATITIS B (1 of 3 - 3-dose series) [facility] Bacteria identified in Urine by Culture URINE CULTURE Microbiology Routine Encounter for supervision of other normal in first trimester Obesity in 11/28/2021 4:00 PM EDT [facility] Work Phone: Chlamydia trachomatis+Neisseria gonorrhoeae DNA [Presence] in Unspecified specimen by MODESTO with probe detection GC/CHLAMYDIA DNA DET Lab Routine Encounter for supervision of other normal in first trimester Obesity in 11/28/2021 4:00 PM EDT [facility] Work Phone: NUCHAL TRANSLUCENCY WHI NUCHAL T RANSLUCENCY WHI Anc Imaging Routine Encounter for supervision of other normal in first trimester Obesity in Ordered: 11/28/2021 [facility] Work Phone: Comment on above: Ordered: 11/28/2021 OBSTETRIC ULTRASOUND WHI OBSTETR IC ULTRASOUND WHI Anc Imaging Routine Encounter for supervision of other normal in first trimester Obesity in Ordered: 11/28/2021 [facility] Work Phone: Comment on above: Ordered: 11/28/2021 OBSTETRIC ULTRASOUND WHI OBSTETR IC ULTRASOUND WHI Anc Imaging Routine Encounter for supervision of other normal in second trimester Ordered: 12/27/2021 [facility] Work Phone: Comment on above: Ordered: 12/27/2021 Patient Education [facility] Work Phone: Patient referral [facility] Work Phone: ROUTINE, GR OUP B STREP PCR ROUTINE, GROUP B STREP PCR Microbiology Routine 37 weeks gestation of 06/12/2022 3:13 PM EST [facility] Work Phone: STREP A MOLECULAR (POC) STREP A MOLECULAR (POC) Microbiology Routine Sore throat Ordered: 10/15/2021 [facility] Work Phone: Comment on above: Ordered: 10/15/2021 URINE OB DIP B/O URINE OB DIP B/ O Lab Routine 28 weeks gestation of Ordered: 04/12/2022 [facility] Work Phone: Comment on above: Ordered: 04/12/2022 [facility] Immunizations Immunization Date Immunization Notes Care Provider Zoltan moraes 04-26-2022 tetanus toxoid, redu miles diphtheria toxoid, and acellular pertussis vaccine, adsorbed Renee Mai MD Work Phone: [facility] 06-11-2019 influenza, injectabl e, quadrivalent, contains preservative 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 Work Phone: [facility] Work Phone: 06-11-2019 influenza virus vaccine, unspecified formulation Tenzin ADAM Work Phone: [facility] 06-04-2017 influenza, injectabl e, quadrivalent, contains preservative 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[employer] Work Phone: [facility] 07-22-2016 tetanus toxoid, redu miles diphtheria toxoid, and acellular pertussis vaccine, adsorbed 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[employer] Work Phone: [facility] 02-11-2014 influenza, seasonal, injectable 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[employer] Work Phone: [facility] 02-11-2014 tetanus toxoid, redu miles diphtheria toxoid, and acellular pertussis vaccine, adsorbed 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[employer] Work Phone: [facility] Payers Date Payer Category Payer Private Health Insurance [facility] CHOICE PLUS [id number] 2024-Present [phone] [address] [place] [address] HMO [id number] 2024 Unknown [id number] 2022 Self-pay [id number] 2022 Unknown [id number] 2019 Unknown BERYL BLUE CARD PPO OOS [id number] 2019-Present [phone] [facility] [id number] [place] [address] PPO [id number] 2017 Unknown 2016 Unknown [employer] EXCH[employer] PLAN [id number] 1989 Unknown [id number] 1989 Unknown [id number] Unknown [id number] Unknown [id number] Unknown [id number] Social History Date Type Detail Facility Start: 02-22-2013 End: 05-13-2022 Tobacco smoking status NHIS Never smoked tobacco [facility] Start: 10-15-2021 End: 11-20-2021 Alcohol intake Current drinker of alcohol (finding) [facility] Start: 02-12-2021 End: 03-28-2021 History SDOH Alcohol Frequency 2 [facility] Start: 02-12-2021 End: 03-28-2021 History SDOH Alcohol Std Drinks 1 [facility] Start: 06-11-2019 History SDOH Alcohol Comment rarely- not while [facility] Start: 02-12-2021 History SDOH Social Connections Phone 5 [facility] Start: 02-12-2021 History SDOH Social Connections [facility] Start: 06-08-2019 Education 21 [facility] Start: 1990 Sex Assigned At Not on file [facility] Start: 01-24-2020 End: 06-19-2022 Tobacco smoking consumption unknown [facility] Start: 11-22-2021 End: 04-22-2024 Alcohol intake Ex-drinker (finding) [facility] Start: 10-10-2021 [facility] Start: 11-12-2021 End: 03-28-2022 Exposure to SARS-CoV-2 (event) Not sure [facility] Work Phone: Start: 02-22-2013 End: 05-13-2022 Tobacco use and exposure Smokeless tobacco non-user [facility] Start: 1990 Sex Assigned At Female [facility] Start: 02-12-2021 End: 05-12-2022 History of Social function [facility] Start: 02-12-2021 End: 05-12-2022 Social connection and isolation panel [facility] Do you belong to any clubs or organizations such as latter day groups, unions, fraternal or athletic groups, or school groups? Yes [facility] Are you now , , , , never or living with a partner? [facility] How often to you hav e a drink containing alcohol? Monthly or less [facility] How many standard dr inks containing alcohol do you have on a typical day? 1 or 2 [facility] How often do you hav e 6 or more drinks on 1 occasion? Never [facility] How hard is it for y ou to pay for the very basics like food, housing, medical care, and heating Not hard at all [facility] Do you feel stress - tense, restless, nervous, or anxious, or unable to sleep at night because your mind is troubled all the time - these days [OSQ] To some extent [facility] (I/We) worried wheth er (my/our) food would run out before (I/we) got money to buy more. Never true [facility] In the past 12 month s, was there a time when you were not able to pay the mortgage or rent on time? No [facility] Goals Date Patient Goal Desired Activity /State Clinical Notes 09-13-2013 to 04-22-2024 Home Poe MD - 04/22/2024 11:55 AM ESTTelephone Encounter - Suzette Valles MA - 04/14/2024 9:54 AM ESTTelephone Encounter - Suzette Valles MA - 04/14/2024 9:54 AM EST Note Date & Type Note Facility 04-22-2024 Note HNO ID: [id number] Author: HOME POE MD Service: ? Author Type: Physician Type: Progress Notes Filed: 04/22/2024 12:15 Note Text: Patient presents with: Chest Congestion: cough, fever increased x 2 days HPI: Coughing for 3 weeks. Evaluated for cough 04/13/24 with negative CXR. 4 family members have had pneumonia. She has had worse cough with green production and fever the last 3 days. Positive symptoms: Cough, maybe Shortness of breath, Rhinorrhea, Fever, Negative symptoms: Sinus pressure, OTC: advil. She did not try albuterol. MEDICATIONS: Current Outpatient Medications Medication Sig MULTIVITAMIN ORAL Take by mouth. albuterol HFA (PROVENTIL HFA, VENTOLIN HFA) 90 mcg/actuation inhaler Inhale 2 Puffs as instructed every 4 hours as needed for wheezing/shortness of breath. (Patient not taking: Reported on 04/22/2024) aspirin, enteric coated (ASPIRIN, ENTERIC COATED) 81 mg EC tablet Take 1 tablet by mouth once daily. (Patient not taking: Reported on 04/13/2024) prental multivitamin 27 mg iron- 800 mcg tablet Take 1 tablet by mouth once daily. (Patient not taking: Reported on 04/13/2024) LORazepam (ATIVAN) 0.5 mg Take by mouth twice daily as needed. (Patient not taking: Reported on 04/13/2024) olopatadine (PATANOL) 0.1 % ophthalmic solution Use 1 Drop in both eyes twice daily. (Patient not taking: Reported on 04/13/2024) fluticasone (FLONASE) 50 mcg/actuation nasal spray Use 2 Sprays in each nostril once daily. Rinse mouth after use. (Patient not taking: Reported on 04/13/2024) cetirizine (ZYRTEC) 10 mg tablet Take 10 mg by mouth once daily. (Patient not taking: Reported on 04/13/2024) No current facility-administered medications for this visit. ALLERGIES: ALLERGIES Allergen Reactions Seasonal Allergies Other: See Comments Sinus problems and Itching, sore eyes VITALS: BP 120/72 Pulse 104 Temp 36.6 ?C (97.8 ?F) Resp 18 Wt 96.5 kg (212 lb 11.9 oz) LMP 09/26/2021 (Exact Date) SpO2 98% BMI 33.32 kg/m? PHYSICAL EXAM: GEN: Pleasant, in no acute distress. HEENT: PERRL, EOMI, conjunctiva clear Ears: canals clear. TMs without erythema, bulge, or effusion Sinuses: non-tender frontal sinus, non-tender maxillary sinuses Throat: moist mucous membranes, mild erythema, no exudate Neck: supple, no thyromegaly, no lymphadenopathy HEART: regular rate, regular rhythm, no murmurs LUNGS: clear to auscultation, no wheezes or crackles, no increased WOB ASSESSMENT/PLAN: 1. Subacute cough - ICD9: 786.2, ICD10: R05.2 Discussed worsening productive cough with fever can be pneumonia due to exposure or new viral illness the last few days. She understands the risks and benefits of treatment options and does not want to repeat her CXR but would like to start antibiotic. - DOXYCYCLINE MONOHYDRATE 100 MG CAPSULE (denies risk of , just completed LMP. Informed doxy should not be used with any risk of ). Home Poe MD [facility] 04-22-2024 History of Presen t illness Narrative Patient presents with: Chest Congestion: cough, fever increased x 2 days HPI: Coughing for 3 weeks. Evaluated for cough 04/13/24 with negative CXR. 4 family members have had pneumonia. She has had worse cough with green production and fever the last 3 days. Positive symptoms: Cough, maybe Shortness of breath, Rhinorrhea, Fever, Negative symptoms: Sinus pressure, OTC: advil. She did not try albuterol. MEDICATIONS: Current Outpatient Medications Medication Sig MULTIVITAMIN ORAL Take by mouth. albuterol HFA (PROVENTIL HFA, VENTOLIN HFA) 90 mcg/actuation inhaler Inhale 2 Puffs as instructed every 4 hours as needed for wheezing/shortness of breath. (Patient not taking: Reported on 04/22/2024) aspirin, enteric coated (ASPIRIN, ENTERIC COATED) 81 mg EC tablet Take 1 tablet by mouth once daily. (Patient not taking: Reported on 04/13/2024) prental multivitamin 27 mg iron- 800 mcg tablet Take 1 tablet by mouth once daily. (Patient not taking: Reported on 04/13/2024) LORazepam (ATIVAN) 0.5 mg Take by mouth twice daily as needed. (Patient not taking: Reported on 04/13/2024) olopatadine (PATANOL) 0.1 % ophthalmic solution Use 1 Drop in both eyes twice daily. (Patient not taking: Reported on 04/13/2024) fluticasone (FLONASE) 50 mcg/actuation nasal spray Use 2 Sprays in each nostril once daily. Rinse mouth after use. (Patient not taking: Reported on 04/13/2024) cetirizine (ZYRTEC) 10 mg tablet Take 10 mg by mouth once daily. (Patient not taking: Reported on 04/13/2024) No current facility-administered medications for this visit. ALLERGIES: ALLERGIES Allergen Reactions Seasonal Allergies Other: See Comments Sinus problems and Itching, sore eyes VITALS: BP 120/72 Pulse 104 Temp 36.6 C (97.8 F) Resp 18 Wt 96.5 kg (212 lb 11.9 oz) LMP 09/26/2021 (Exact Date) SpO2 98% BMI 33.32 kg/m PHYSICAL EXAM: GEN: Pleasant, in no acute distress. HEENT: PERRL, EOMI, conjunctiva clear Ears: canals clear. TMs without erythema, bulge, or effusion Sinuses: non-tender frontal sinus, non-tender maxillary sinuses Throat: moist mucous membranes, mild erythema, no exudate Neck: supple, no thyromegaly, no lymphadenopathy HEART: regular rate, regular rhythm, no murmurs LUNGS: clear to auscultation, no wheezes or crackles, no increased WOB ASSESSMENT/PLAN: 1. Subacute cough - ICD9: 786.2, ICD10: R05.2 Discussed worsening productive cough with fever can be pneumonia due to exposure or new viral illness the last few days. She understands the risks and benefits of treatment options and does not want to repeat her CXR but would like to start antibiotic. - DOXYCYCLINE MONOHYDRATE 100 MG CAPSULE (denies risk of , just completed LMP. Informed doxy should not be used with any risk of ). Home Poe MD documented in this encounter [facility] 04-14-2024 Telephone encounter Note Patient given results and verbalized understanding of instructions given. Suzette Vallse MA [facility] 04-14-2024 Miscellaneous Notes Patient given results and verbalized understanding of instructions given. Suzette Valles MA Please let patient know xray is normal- no pneumonia. I have sent an inhaler to her pharmacy for her. documented in this encounter [facility] 04-13-2024 Telephone encounter Note Please let patient know xray is normal- no pneumonia. I have sent an inhaler to her pharmacy for her. [facility] 04-13-2024 History of Presen t illness Narrative Radiology Service Progress Note PATIENT NAME: Krista Mast DATE OF SERVICE: April 13, 2024 TIME: 3:09 PM PATIENT IDENTITY VERIFICATION COMPLETED USING TWO (2) IDENTIFIERS: Name and Date of confirmed by patient verbally. FALL SCREENING: Has the patient had 2 falls in the last year or 1 fall with injury or currently using an Ambulatory Assistive Device (Walker, Cane, Wheelchair, Crutches, etc.)? No PATIENT GENDER DATA: Female. status: : No status: NO. PATIENT RELEVANT IMPLANT DATA REVIEWED: Yes PATIENT PRESENTS WITH AN IMPLANTABLE OR ATTACHED COPPER PLATER: No RADIOLOGY DEPARTMENT: General X-ray: Exam(s) Completed: Chest X-Ray PERIPHERAL IV DATA: Not applicable SIGNED BY: RT Saritha(R) April 13, 2024 3:09 PM documented in this encounter [facility] 04-13-2024 Note HNO ID: [id number] Author: RORO HEWITT RT(R) Service: ? Author Type: Residential Fee Appraiser Type: Progress Notes Filed: 04/13/2024 15:16 Note Text: Radiology Service Progress Note PATIENT NAME: Krista Mast DATE OF SERVICE: April 13, 2024 TIME: 3:09 PM PATIENT IDENTITY VERIFICATION COMPLETED USING TWO (2) IDENTIFIERS: Name and Date of confirmed by patient verbally. FALL SCREENING: Has the patient had 2 falls in the last year or 1 fall with injury or currently using an Ambulatory Assistive Device (Walker, Cane, Wheelchair, Crutches, etc.)? No PATIENT GENDER DATA: Female. status: : No status: NO. PATIENT RELEVANT IMPLANT DATA REVIEWED: Yes PATIENT PRESENTS WITH AN IMPLANTABLE OR ATTACHED COPPER PLATER: No RADIOLOGY DEPARTMENT: General X-ray: Exam(s) Completed: Chest X-Ray PERIPHERAL IV DATA: Not applicable SIGNED BY: RT Saritha(R) April 13, 2024 3:09 PM [facility] 04-13-2024 Note HNO ID: [id number] Author: TENZIN CRUZ PA Service: ? Author Type: Physician Vp Construction Type: Progress Notes Filed: 04/13/2024 15:21 Note Text: This note was created using NoteWriter. Subjective Krista Mast is a 33 year old female. HPI 33-year-old female presents for cough, chest tightness x 2 weeks. Patient states she has had a cough and postnasal drainage for the past few weeks. She does not really have nasal congestion. She states that she feels some tightness in her chest. No wheezing. No history of COPD or asthma. No fevers. Several family members recently got diagnosed with pneumonia. Patient has not really tried anything [id number] for symptoms. No other complaint. 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 aspirin, enteric coated (ASPIRIN, ENTERIC COATED) 81 mg EC tablet Take 1 tablet by mouth once daily. (Patient not taking: Reported on 04/13/2024) prental multivitamin 27 mg iron- 800 mcg tablet Take 1 tablet by mouth once daily. (Patient not taking: Reported on 04/13/2024) LORazepam (ATIVAN) 0.5 mg Take by mouth twice daily as needed. (Patient not taking: Reported on 04/13/2024) olopatadine (PATANOL) 0.1 % ophthalmic solution Use 1 Drop in both eyes twice daily. (Patient not taking: Reported on 04/13/2024) fluticasone (FLONASE) 50 mcg/actuation nasal spray Use 2 Sprays in each nostril once daily. Rinse mouth after use. (Patient not taking: Reported on 04/13/2024) cetirizine (ZYRTEC) 10 mg tablet Take 10 mg by mouth once daily. (Patient not taking: Reported on 04/13/2024) FAMILY HISTORY Problem Relation Age of Onset Heart Mother Hypertension Mother Hypertension Father No Known Problems Brother Heart Maternal Grandmother other (uterine cancer) Maternal Grandmother Heart Maternal Grandfather CHF Diabetes Paternal Grandmother Heart Paternal Grandfather other (healthy) Daughter [place] ADD/ADHD Daughter Eczema Daughter Psoriasis Daughter No Known Problems Daughter other (hepatitis) Maternal Uncle Social History Tobacco Use Smoking status: Never Smokeless tobacco: Never Vaping Use Vaping status: Never Used Substance Use Topics Alcohol use: Not Currently Comment: rarely- not while Drug use: No Review of Systems Constitutional: Negative for chills and fever. HENT: Positive for postnasal drip. Negative for congestion, ear pain and sore throat. Respiratory: Positive for cough and chest tightness. Negative for shortness of breath. Cardiovascular: Negative for chest pain. Gastrointestinal: Negative for diarrhea and vomiting. Objective BP 110/68 Pulse 92 Temp 36.7 ?C (98.1 ?F) Resp 16 Wt 97.3 kg (214 lb 8.1 oz) LMP 09/26/2021 (Exact Date) SpO2 98% BMI 33.60 kg/m? Physical Exam Vitals and nursing note reviewed. Constitutional: General: She is not in acute distress. Appearance: Normal appearance. She is not toxic-appearing. HENT: Right Ear: Tympanic membrane and ear canal normal. Left Ear: Tympanic membrane and ear canal normal. Nose: Nose normal. Mouth/Throat: Mouth: Mucous membranes are moist. Eyes: Conjunctiva/sclera: Conjunctivae normal. Cardiovascular: Rate and Rhythm: Normal rate and regular rhythm. Pulmonary: Effort: Pulmonary effort is normal. Breath sounds: Normal breath sounds. No wheezing, rhonchi or rales. Skin: General: Skin is warm and dry. Neurological: Mental Status: She is alert. Assessment and Plan ASSESSMENT/PLAN: 1. Acute cough - ICD9: 786.2, ICD10: R05.1 - XR CHEST 2V FRONTAL/LAT- no acute radiographic abnormality. - suspect viral - RX albuterol inhaler - follow up with pcp if symptoms persist or worsen Diagnosis and treatment plan were discussed and questions were answered to the patient's satisfaction. Pt acknowledged understanding of concepts and follow up plan. Specific signs and symptoms that would indicate the need for higher level of care were discussed in detail warranting prompt ER evaluation. KIA Good [facility] 04-13-2024 History of Presen t illness Narrative This note was created using Buzzeroriter. Subjective Krista Mast is a 33 year old female. HPI 33-year-old female presents for cough, chest tightness x 2 weeks. Patient states she has had a cough and postnasal drainage for the past few weeks. She does not really have nasal congestion. She states that she feels some tightness in her chest. No wheezing. No history of COPD or asthma. No fevers. Several family members recently got diagnosed with pneumonia. Patient has not really tried anything vadp-[id number]-[id number] for symptoms. No other complaint. 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 aspirin, enteric coated (ASPIRIN, ENTERIC COATED) 81 mg EC tablet Take 1 tablet by mouth once daily. (Patient not taking: Reported on 04/13/2024) prental multivitamin 27 mg iron- 800 mcg tablet Take 1 tablet by mouth once daily. (Patient not taking: Reported on 04/13/2024) LORazepam (ATIVAN) 0.5 mg Take by mouth twice daily as needed. (Patient not taking: Reported on 04/13/2024) olopatadine (PATANOL) 0.1 % ophthalmic solution Use 1 Drop in both eyes twice daily. (Patient not taking: Reported on 04/13/2024) fluticasone (FLONASE) 50 mcg/actuation nasal spray Use 2 Sprays in each nostril once daily. Rinse mouth after use. (Patient not taking: Reported on 04/13/2024) cetirizine (ZYRTEC) 10 mg tablet Take 10 mg by mouth once daily. (Patient not taking: Reported on 04/13/2024) FAMILY HISTORY Problem Relation Age of Onset Heart Mother Hypertension Mother Hypertension Father No Known Problems Brother Heart Maternal Grandmother other (uterine cancer) Maternal Grandmother Heart Maternal Grandfather CHF Diabetes Paternal Grandmother Heart Paternal Grandfather other (healthy) Daughter [place] ADD/ADHD Daughter Eczema Daughter Psoriasis Daughter No Known Problems Daughter other (hepatitis) Maternal Uncle Social History Tobacco Use Smoking status: Never Smokeless tobacco: Never Vaping Use Vaping status: Never Used Substance Use Topics Alcohol use: Not Currently Comment: rarely- not while Drug use: No Review of Systems Constitutional: Negative for chills and fever. HENT: Positive for postnasal drip. Negative for congestion, ear pain and sore throat. Respiratory: Positive for cough and chest tightness. Negative for shortness of breath. Cardiovascular: Negative for chest pain. Gastrointestinal: Negative for diarrhea and vomiting. Objective BP 110/68 Pulse 92 Temp 36.7 C (98.1 F) Resp 16 Wt 97.3 kg (214 lb 8.1 oz) LMP 09/26/2021 (Exact Date) SpO2 98% BMI 33.60 kg/m Physical Exam Vitals and nursing note reviewed. Constitutional: General: She is not in acute distress. Appearance: Normal appearance. She is not toxic-appearing. HENT: Right Ear: Tympanic membrane and ear canal normal. Left Ear: Tympanic membrane and ear canal normal. Nose: Nose normal. Mouth/Throat: Mouth: Mucous membranes are moist. Eyes: Conjunctiva/sclera: Conjunctivae normal. Cardiovascular: Rate and Rhythm: Normal rate and regular rhythm. Pulmonary: Effort: Pulmonary effort is normal. Breath sounds: Normal breath sounds. No wheezing, rhonchi or rales. Skin: General: Skin is warm and dry. Neurological: Mental Status: She is alert. Assessment and Plan ASSESSMENT/PLAN: 1. Acute cough - ICD9: 786.2, ICD10: R05.1 - XR CHEST 2V FRONTAL/LAT- no acute radiographic abnormality. - suspect viral - RX albuterol inhaler - follow up with pcp if symptoms persist or worsen Diagnosis and treatment plan were discussed and questions were answered to the patient's satisfaction. Pt acknowledged understanding of concepts and follow up plan. Specific signs and symptoms that would indicate the need for higher level of care were discussed in detail warranting prompt ER evaluation. KIA Good documented in this encounter [facility] 06-21-2022 Miscellaneous Notes Have the patient use [id number] Preparation H and witch rigoberto pads. Please see pt's [employer] message and advise further. Nathalie Austin LPN documented in this encounter [facility] 06-20-2022 Discharge summary Note Date/Time June 20, 2022 8:31am [facility] Medical Records Department [address] [place] [address] Instructions for Home/Discharge Instructions 06/20/22 0830 MR#: [id number] Acct: [id number] Name: KRISTA MAST Rep #:[id number] : 1990 31 From: Valery Lockhart CNM PCP: Dr. Tyrese Torres, DO Status:AD M IN Discharge Instructions Diet Discharge Diet: No restrictions Activity Discharge Activity: Return to Normal Activity, May Shower and May Take a Tub Bath May resume sexual activity in: 4-6 weeks Weight Bearing Status: Weight bearing as tolerated Dressing / Incision Call your doctor if you observe: Inability to urinate, Using more than 1 pad perhour, Shortness of breath, Dizziness, Swelling in the ankles, Chest pain, Calf discomfort and Uncontrolled pain Follow Up Care When: Within 14 days Test Results: Test results from this visit will be discussed in further detail at your follow-up appointment, if applicable. Discharge Plan Admission Admit Date/Time: 06/19/22 09:45 Primary Reason for Your Visit: Labor and Delivery Attending Provider: Renee Avina Primary Care Provider: Tyrese Torres Discharge Orders/Prescriptions Prescriptions: No Action Prenatabs FA 1 TABLET tablet 1 tab PO DAILY Vazalore 81 mg Capsule 81 mg DAILY Referrals / Follow Up: Tyrese Torres DO [Primary Care Provider] - Disposition Disposition (needs filled in before D/C Order can be placed): Home, Self Care 06/20/22830<Electronically signed by Valery Lockhart CNM>Valery Lockhart CNM CC: Dr. yTrese Torres, ~ Signed [facility] Work Phone: 1(459) 976-494202-23-2023 Progress note Author [facility] June 20, 2022 8:30am Note Date/Time June 20, 2022 8:30am [facility] Medical Records Department [address] [place] [address] Progress Note - OBGYN 06/20/22827 MR#: [id number] Acct: [id number] Name: KRISTA MAST Rep #:[id number] : 1990 31 From: Valery Lockhart CNM PCP: Dr. Tyrese Torres DO Status:AD M IN Location: BS320-0 Subjective Subjective Patient seen at bedside. Feeling good. Ambulating and voiding without difficulty. Denies any pain. without incident. Desires discharge home today. Objective Data Objective Data Vital Signs: Vital Signs Temp Pulse Resp BP Pulse Ox O2 Del Method 97.6 F L 93 16 108/62 98 Room Air 06/20/22 04:54 06/20/22 08:10 06/20/22 04:54 06/20/22 08:10 06/20/22 08:10 06/20/22 04:54 Oxygen Delivery Method Room Air Weight: 221 lb 2 oz Body Mass Index (BMI) 34.6 Intake & Output: Intake and Output for Last 24 Hours 06/18/22 06/19/22 06/20/22 23:59 23:59 23:59 Intake Total 1550.03 / 1550.03 Output Total 950 / 950 Balance 600.03 / 600.03 Lab / Micro Data Result Diagrams: 06/19/22 10:00 Labs: Laboratory Results - last 24 hr 06/19/22 10:00: WBC 12.3 H, RBC 4.05 L, Hgb 12.4, Hct 37.7, MCV 93.1, MCH 30.6, MCHC 32.9, RDW Std Deviation 45.0 H, RDW Coeff of Bowen 13.2, Plt Count 184, MPV 11.0, Immature Gran % (Auto) 0.600, Neut % (Auto) 82.0 H, Lymph % (Auto) 9.8 L, Dent % (Auto) 7.2, Eos % (Auto) 0.2, Baso % (Auto) 0.2, Absolute Neuts (auto) 10.1 H, Absolute Lymphs (auto) 1.21, Nucleated RBC % 0 06/19/22 10:00: Blood Type B POSITIVE, Antibody Screen NEGATIVE ROS Eyes Eyes: Denies blurry vision, change in vision or spots in vision ENT HEENT: Denies dizziness or headache(s) Cardiovascular Cardiovascular: Denies abdominal pain, chest pain or dyspnea Respiratory/Chest Respiratory/Chest: Denies cough, dyspnea, shortness of breath at rest or shortness of breath with exertion Gastrointestinal Gastrointestinal: Denies abdominal pain, diarrhea or vomiting Genitourinary Genitourinary: Denies change in urinary stream, difficulty urinating or dysuria Musculoskeletal Musculoskeletal: Reports none Integumentary Integumentary: Denies rash Neurologic Neurologic: Denies dizziness, headache(s), memory loss or weakness Physical Exam Const alert and no apparent distress General Appearance: cooperative and comfortable Exam Limitations: no limitations HEENT normocephalic Eyes General Eye: normal appearance of both eyes Neck full ROM General: normal visual inspection Chest Chest: symmetrical chest wall rise Resp normal respiratory effort and normal air movement Effort and Inspection: symmetric chest movement Auscultation: clear to auscultation bilaterally Cardio regular rate and regular rhythm GI normal to inspection, nondistended, normoactive bowel sounds Back/Spine normal ROM Extremity full ROM and no calf tenderness General Extremity: normal exam except as noted Skin no rashes or lesions noted Neuro CN's II-XII intact bilaterally Psych mental status grossly normal Assessment & Plan (1) (spontaneous vaginal delivery): (2) Care and examination of lactating mother: PLAN: Plan PPD 1 Intact support Pain control D/C home with follow up in office 06/20/22 0830 <Electronically signed by Valery Lockhart CNM> Cosigner Signature (if applicable): CC: ~ Signed [facility] Work Phone: 1(961) 807-737302-22-2023 History and physical note Author M Dr. Renee Biswas [facility] June 19, 2022 11:36am Note Date/Time June 19, 2022 11:36am [facility] Medical Records Department [address] [place] [id number] H&P Exam - SEMICONDUCTOR WAFERS MARKER 06/19/22 1134 MR#: [id number] Acct: [id number] Name: KRISTA MAST Rep #:[id number] : 1990 31 From: Renee Mai MD PCP: Dr. Tyrese Torres, DO Status:AD M IN Location: HA165-2 HPI - General General Date of Admission: 06/19/22 Date of Service: 06/19/22 Chief Complaint: labor HPI Narrative KRISTA MAST, is a 31 F @ 38 weeks who presents c/o contractions. was foundto be 4cm- very uncomfortable- kept for labor. PFSH PFSH Home Medications vits,calcium no.78-iron fumarate-folic acid 29 mg-1 mg tablet (Prenatabs FA) 1 tab PO DAILY 05/04/14 [History Last Taken 06/18/22 09:00] aspirin 81 mg capsule (Vazalore) 81 mg DAILY (obestity) 06/03/22 [History Last Taken 06/18/22 09:00] Allergy/AdvReac Type Severity Reaction Status Date / Time No Known Allergies Allergy Verified 06/19/22 09:32 Social History Smoking Status: Never smoker History Elective abortions Hx Para 3 Spontaneous abortions Hx # Term Pregnancies Ectopic pregnancies Hx # Pregnancies Multiple births # of living children Vital Signs Vital Signs Vital Signs: 06/19/22 09:26 06/19/22 09:26 06/19/22 09:26 Temperature Temperature Source Pulse Rate 102 H 109 H Blood Pressure 118/70 BP Systolic 118 BP Diastolic 70 Pulse Ox 06/19/22 09:26 06/19/22 09:26 06/19/22 09:36 Temperature Temperature Source Temporal Temporal Pulse Rate Blood Pressure BP Systolic BP Diastolic Pulse Ox 97 06/19/22 09:36 06/19/22 10:31 06/19/22 10:31 Temperature 97.9 F Temperature Source Pulse Rate 105 H Blood Pressure 120/78 BP Systolic 120 BP Diastolic 78 Pulse Ox 06/19/22 10:34 06/19/22 10:34 06/19/22 10:34 Temperature 98.0 F Temperature Source Temporal Pulse Rate Blood Pressure BP Systolic BP Diastolic Pulse Ox 100 06/19/22 10:57 06/19/22 10:57 06/19/22 10:59 Temperature Temperature Source Pulse Rate 106 H 110 H Blood Pressure BP Systolic BP Diastolic Pulse Ox 96 06/19/22 10:59 06/19/22 11:02 06/19/22 11:02 Temperature Temperature Source Pulse Rate 113 H Blood Pressure BP Systolic BP Diastolic Pulse Ox 93 96 06/19/22 11:05 06/19/22 11:05 06/19/22 11:12 Temperature Temperature Source Pulse Rate 113 H Blood Pressure 118/68 115/92 H BP Systolic 118 115 BP Diastolic 68 92 Pulse Ox 06/19/22 11:12 06/19/22 11:14 06/19/22 11:14 Temperature Temperature Source Pulse Rate 108 H 113 H Blood Pressure BP Systolic BP Diastolic Pulse Ox 99 06/19/22 11:15 06/19/22 11:15 06/19/22 11:17 Temperature Temperature Source Pulse Rate 105 H 99 Blood Pressure 125/66 H BP Systolic 125 BP Diastolic 66 Pulse Ox 06/19/22 11:17 06/19/22 11:20 06/19/22 11:20 Temperature Temperature Source Pulse Rate 102 H Blood Pressure 135/65 H BP Systolic 135 BP Diastolic 65 Pulse Ox 90 06/19/22 11:19 06/19/22 11:33 06/19/22 11:33 Temperature Temperature Source Pulse Rate 96 Blood Pressure 101/54 L BP Systolic 101 BP Diastolic 54 Pulse Ox 100 Weight Weight: 100.301 kg Body Mass Index (BMI) 34.6 Labs Labs Labs: Blood Type B POSITIVE Antibody Screen NEGATIVE Hct 37.7 % (37-47) Hgb 12.4 g/dL (12.0-15.0) Chlamydia DNA (MODESTO) Negative (Negative) Neisseria gonorrhoeae DNA (MODESTO) Negative (Negative) Rhogam given: No Assessment & Plan (1) 38 weeks gestation of : PLAN: Plan Admit to L&D Montior FHR/TOCO Epidural if requested for pain Monitor VS Anticipate 06/19/22 1136 <Electronically signed by Renee Avnia MD> Cosigner Signature (if applicable): CC: Louisa Avina; Dr. Tyrese Torres, ~ Signed [facility] Work Phone: 1(571) 666-790202-22-2023 Procedure [facility] 06-12-2022 Miscellaneous Notes* Quick Notes - Renee Mai MD - 06/12/2022 3:03 PM EST DM- Pt doing well today. Denies Vaginal Bleeding, Leaking fluid, or contractions. Pt reports good movement. Kick counts and labor reviewed. GBS today. Vertex on ultrasound, waqas appears wnl. RTOone week. Renee Mai MD [facility] Instructions* Patient Instructions* Xochitl Rooney Ma - 06/12/2022 2:40 PM EST SEQUENTIAL SCREENINGS The [facility] offers sequential screenings for women who are interested in screenings for chromosomal abnormalities and certain defects during a . The sequential screen combinesultrasound and blood tests to determine the risk of chromosomal abnormalities, including Down's Syndrome (Trisomy 21) and Trisomy 18, as well as open neural tube defects including spina bifida. Ultrasound examination is performed between 11 weeks and 13 weeks gestational age. Blood tests are drawn after the ultrasound and again later in the between 15 and 21 weeks gestational age. Please let your physician know if you are interested in this testing. It will require an appointment withour septic tank service technician. This is not an ultrasound performed by a physician in our office during a routine visit. SIGNS AND SYMPTOMS OF LABOR 1. Contractions every 10 minutes or more often 2. Clear, pink, or brownish fluid (water) leaking from vagina 3. Feeling that baby is pushing down, pressure 4. Low, dull backache 5. Cramps that feel like a period 6. Cramps with or without diarrhea If you notice any of the above symptoms, contact our office at [phone] and ask to speak with anurse. After hours, you can call doctors registry at [phone] OR call [facility] at [phone] ask to have the doctor medication coordinator paged. If you consider this an emergency, dial 8-1-2 or go to your nearest emergency department. NEED HELP? Are you dealing with a violent or abusive relationship? Are you a victim of rape or sexual assult? Call [facility] [place] ([place]) 24 hour Crisis Hotline: 308.310.5247 or 376-430-5875. MANUAL Your Guide to a Healthy manual is now on-line. Visit [email or web address] to download your free copy documented [facility] Miscellaneous Notes* Quick Notes - Silvia Vu APRN.CNM - 06/08/2022 9:03 PM EST ROSALIO-S: Krista Mast is a 31 year old female who presents at 36w0d with LIZABETH:07/03/2022, by Last Menstrual Period for a routine visit. Denies headache, visual changes, chest pain, shortness of breath, vaginal bleeding, leakage of fluid, or dysuria. Still having some discharge with blood tinged and turning torres after cervical exam and nervous. Denies any bright red vaginal bleeding or signs of labor. Feeling movement. Having some contractions but nothing regular. O: See flow sheet Gen: No apparent distress Abd: Gravid, nontender BPP 12/03 ASSESSMENT/PLAN: 1. 36 weeks gestation of P: 1) PTL precautions reviewed and when to call 2) RTO as scheduled 3) BPP ordered and reassuring, 12/03. Reviewed in detail with patient and reassurance offered 4) No active bleeding but discussed cervical friability during and what to look out for, reassurance offered. 5) Reviewed kick counts and when to call. Silvia Vu APRN.CNM documented in this [facility] Instructions* Patient Instructions* Leodan Hester Regulatory Scientist - 06/05/2022 1:52 PM EST SEQUENTIAL SCREENINGS The [facility] offers sequential screenings for women who are interested in screenings for chromosomal abnormalities and certain defects during a . The sequential screen combinesultrasound and blood tests to determine the risk of chromosomal abnormalities, including Down's Syndrome (Trisomy 21) and Trisomy 18, as well as open neural tube defects including spina bifida. Ultrasound examination is performed between 11 weeks and 13 weeks gestational age. Blood tests are drawn after the ultrasound and again later in the between 15 and 21 weeks gestational age. Please let your physician know if you are interested in this testing. It will require an appointment withour septic tank service technician. This is not an ultrasound performed by a physician in our office during a routine visit. SIGNS AND SYMPTOMS OF LABOR 1. Contractions every 10 minutes or more often 2. Clear, pink, or brownish fluid (water) leaking from vagina 3. Feeling that baby is pushing down, pressure 4. Low, dull backache 5. Cramps that feel like a period 6. Cramps with or without diarrhea If you notice any of the above symptoms, contact our office at [phone] and ask to speak with anurse. After hours, you can call doctors registry at [phone] OR call [facility] at [phone] ask to have the doctor medication coordinator paged. If you consider this an emergency, dial 9-1-1 or go to your nearest emergency department. NEED HELP? Are you dealing with a violent or abusive relationship? Are you a victim of rape or sexual assult? Call [facility] ([place]) 24 hour Crisis Hotline: 403.468.1748 or 501-190-6661. MANUAL Your Guide to a Healthy manual is now on-line. Visit [email or web address] to download your free copy documented in this encounterL[facility] Miscellaneous Notes* Quick Notes - Earl Vences MD - 06/04/2022 1:07 PM EST KJ - Patient presents with increased vaginal discharge with some blood. She denies LOF or vaginal bleeding without discharge. Patient has occ ctxs but not painful. Also reports some pelvic pressure. She reports some decreased FM. SSE: torres discharge with friable cervix, no active bleeding. A&P: Patient reassured that some bright red blood in discharge is normal. All questions answered. Reactive NST for decreased FM Reviewed PTL & FM precautions Earl Vences MD documented in this encounterL[facility] History of Present illness Narrative* Earl Vences MD - 06/04/2022 1:06 PM EST NST SUMMARY PROVIDER ASSESSMENT AND INTERPRETATION Krista Mast is a 31 year old female, , who is at 35w6d with an LIZABETH of 07/03/2022, by Last Menstrual Period dating method. Indications for NST: Decreased Movement Baseline: 135 Variability: Moderate Accelerations: Present 15 X 15 Decelerations: None Contractions: TOCO: None Interpretation: Reactive SIGNATURE: Earl Vences MD documented in this encounterL[facility] Instructions* Patient Instructions* Xochitl Rooney Ma - 06/04/2022 11:24 AM EST SEQUENTIAL SCREENINGS The [facility] offers sequential screenings for women who are interested in screenings for chromosomal abnormalities and certain defects during a . The sequential screen combinesultrasound and blood tests to determine the risk of chromosomal abnormalities, including Down's Syndrome (Trisomy 21) and Trisomy 18, as well as open neural tube defects including spina bifida. Ultrasound examination is performed between 11 weeks and 13 weeks gestational age. Blood tests are drawn after the ultrasound and again later in the between 15 and 21 weeks gestational age. Please let your physician know if you are interested in this testing. It will require an appointment withour septic tank service technician. This is not an ultrasound performed by a physician in our office during a routine visit. SIGNS AND SYMPTOMS OF LABOR 1. Contractions every 10 minutes or more often 2. Clear, pink, or brownish fluid (water) leaking from vagina 3. Feeling that baby is pushing down, pressure 4. Low, dull backache 5. Cramps that feel like a period 6. Cramps with or without diarrhea If you notice any of the above symptoms, contact our office at [phone] and ask to speak with anurse. After hours, you can call doctors registry at [phone] OR call [facility] at [phone] ask to have the doctor medication coordinator paged. If you consider this an emergency, dial 91-5 or go to your nearest emergency department. NEED HELP? Are you dealing with a violent or abusive relationship? Are you a victim of rape or sexual assult? Call [facility] [place] ([facility] 24 hour Crisis Hotline: 382.650.4365 or 457-284-3469. MANUAL Your Guide to a Healthy manual is now on-line. Visit [email or web address] to download your free copy documented in this encounterL[facility] History of Present illness Narrative* Renee Mai MD - 05/30/2022 11:11 AM EST NST SUMMARY PROVIDER ASSESSMENT AND INTERPRETATION Krista Mast is a 31 year old female, , who is at 35w1d with an LIZABETH of 07/03/2022, by Last Menstrual Period dating method. Indications for NST: Other: tachycardia on doppler Baseline: 155 Variability: Moderate Accelerations: Present 15 X 15 Decelerations: None Contractions: TOCO: None Interpretation: Category I and Reactive SIGNATURE: Renee Avina MD documented in this encounterL[facility]02-02-2023 Miscellaneous Notes* Quick Notes - Renee Mai MD - 05/30/2022 11:09 AM EST DM- Pt doing well today. Denies Vaginal Bleeding, Leaking fluid, or contractions. Pt reports good movement. tachy on doppler will get NST. RTO 1-2 weeks. Growth us reviewed. Renee Avina MD documented in this encounterLake[facility]02-02-2023 Instructions* Patient Instructions* Xochitl Rooney Ma - 05/30/2022 10:41 AM EST SEQUENTIAL SCREENINGS The [facility] offers sequential screenings for women who are interested in screenings for chromosomal abnormalities and certain defects during a . The sequential screen combinesultrasound and blood tests to determine the risk of chromosomal abnormalities, including Down's Syndrome (Trisomy 21) and Trisomy 18, as well as open neural tube defects including spina bifida. Ultrasound examination is performed between 11 weeks and 13 weeks gestational age. Blood tests are drawn after the ultrasound and again later in the between 15 and 21 weeks gestational age. Please let your physician know if you are interested in this testing. It will require an appointment withour septic tank service technician. This is not an ultrasound performed by a physician in our office during a routine visit. SIGNS AND SYMPTOMS OF LABOR 1. Contractions every 10 minutes or more often 2. Clear, pink, or brownish fluid (water) leaking from vagina 3. Feeling that baby is pushing down, pressure 4. Low, dull backache 5. Cramps that feel like a period 6. Cramps with or without diarrhea If you notice any of the above symptoms, contact our office at [phone] and ask to speak with anurse. After hours, you can call doctors registry at [phone] OR call [facility] at [phone] ask to have the doctor medication coordinator paged. If you consider this an emergency, dial 9--7 or go to your nearest emergency department. NEED HELP? Are you dealing with a violent or abusive relationship? Are you a victim of rape or sexual assult? Call [facility] ([place]) 24 hour Crisis Hotline: 902.289.4335 or 966-953-1057. MANUAL Your Guide to a Healthy manual is now on-line. Visit [email or web address] to download your free copy documented in this encounterLakehealth [facility] Center01-16-2023 Miscellaneous Notes* Quick Notes - Silvia Vu APRN.CNM - 05/13/2022 11:31 AM EST ROSALIO-S: Krista Mast is a 31 year old female who presents at 32w5d with LIZABETH:07/03/2022, by Last Menstrual Period for a routine visit. Denies headache, visual changes, chest pain, shortness of breath, vaginal bleeding, leakage of fluid, or dysuria. Feeling well, no complaints. O: See flow sheet Gen: No apparent distress Abd: Gravid, nontender S=D, 18lb ASSESSMENT/PLAN: 1. 32 weeks gestation of P: 1) PTL precautions reviewed and when to call 2) RTO in 2 weeks 3) Continue ASA 4) Planning unmedicated 5) Continue ASA 6) Growth US, adequate interval growth, awaiting formal results Silvia Vu APRN.CNM documented in this encounterLake[facility]01-16-2023 Instructions* Patient Instructions* Leodan Hester Cma - 05/13/2022 11:10 AM EST SEQUENTIAL SCREENINGS The [facility] offers sequential screenings for women who are interested in screenings for chromosomal abnormalities and certain defects during a . The sequential screen combinesultrasound and blood tests to determine the risk of chromosomal abnormalities, including Down's Syndrome (Trisomy 21) and Trisomy 18, as well as open neural tube defects including spina bifida. Ultrasound examination is performed between 11 weeks and 13 weeks gestational age. Blood tests are drawn after the ultrasound and again later in the between 15 and 21 weeks gestational age. Please let your physician know if you are interested in this testing. It will require an appointment withour septic tank service technician. This is not an ultrasound performed by a physician in our office during a routine visit. SIGNS AND SYMPTOMS OF LABOR 1. Contractions every 10 minutes or more often 2. Clear, pink, or brownish fluid (water) leaking from vagina 3. Feeling that baby is pushing down, pressure 4. Low, dull backache 5. Cramps that feel like a period 6. Cramps with or without diarrhea If you notice any of the above symptoms, contact our office at [phone] and ask to speak with anurse. After hours, you can call doctors registry at [phone] OR call [facility] at [phone] ask to have the doctor medication coordinator paged. If you consider this an emergency, dial 9-1-3 or go to your nearest emergency department. NEED HELP? Are you dealing with a violent or abusive relationship? Are you a victim of rape or sexual assult? Call [facility] ([place]) 24 hour Crisis Hotline: 680.700.9047 or 694-820-0140. MANUAL Your Guide to a Healthy manual is now on-line. Visit [email or web address] to download your free copy documented in this encounterLakehealth [facility] Center12-30-2022 Miscellaneous Notes* Quick Notes - Renee Mai MD - 04/26/2022 10:56 AM EST DM- Pt doing well today. Denies Vaginal Bleeding, Leaking fluid, or contractions. Pt reports good movement. Continue asa. Will schedule growth at 32 weeks. RTO 2 wks. Kick counts reviewed. Tdaptoday. Renee Mai MD documented in this encounterLake[facility]12-30-2022 Instructions* Patient Instructions* Xochitl Rooney Ma - 04/26/2022 10:40 AM EST SEQUENTIAL SCREENINGS The [facility] offers sequential screenings for women who are interested in screenings for chromosomal abnormalities and certain defects during a . The sequential screen combinesultrasound and blood tests to determine the risk of chromosomal abnormalities, including Down's Syndrome (Trisomy 21) and Trisomy 18, as well as open neural tube defects including spina bifida. Ultrasound examination is performed between 11 weeks and 13 weeks gestational age. Blood tests are drawn after the ultrasound and again later in the between 15 and 21 weeks gestational age. Please let your physician know if you are interested in this testing. It will require an appointment withour septic tank service technician. This is not an ultrasound performed by a physician in our office during a routine visit. SIGNS AND SYMPTOMS OF LABOR 1. Contractions every 10 minutes or more often 2. Clear, pink, or brownish fluid (water) leaking from vagina 3. Feeling that baby is pushing down, pressure 4. Low, dull backache 5. Cramps that feel like a period 6. Cramps with or without diarrhea If you notice any of the above symptoms, contact our office at [phone] and ask to speak with anurse. After hours, you can call doctors registry at [phone] OR call [facility] at [phone] ask to have the doctor medication coordinator paged. If you consider this an emergency, dial 7-0-9 or go to your nearest emergency department. NEED HELP? Are you dealing with a violent or abusive relationship? Are you a victim of rape or sexual assult? Call [facility] ([facility] 24 hour Crisis Hotline: 432.903.7866 or 315-407-1346. MANUAL Your Guide to a Healthy manual is now on-line. Visit [email or web address] to download your free copy documented in this encounterLakehealth [facility] Center12-16-2022 Miscellaneous Notes* Quick Notes - Renee Mai MD - 04/12/2022 3:13 PM EST DM- Pt doing well today. Denies Vaginal Bleeding, Leaking fluid, or contractions. Pt reports good movement. Tdap next visit. Passed 3hr. 32 week growth us ordered. Continue ASA. Kick counts reviewed. RTO 2 wks. Renee Avina MD documented in this encounterLake[facility] Center12-16-2022 History of Present illness Narrative* Xochitl Rooney Ma - 04/12/2022 2:40 PM EST . documented in this encounterLakehealth [facility] Center12-16-2022 Instructions* Patient Instructions* Xochtil Rooney Ma - 04/12/2022 2:36 PM EST SEQUENTIAL SCREENINGS [facility] offers sequential screenings for women who are interested in screenings for chromosomal abnormalities and certain defects during a . The sequential screen combinesultrasound and blood tests to determine the risk of chromosomal abnormalities, including Down's Syndrome (Trisomy 21) and Trisomy 18, as well as open neural tube defects including spina bifida. Ultrasound examination is performed between 11 weeks and 13 weeks gestational age. Blood tests are drawn after the ultrasound and again later in the between 15 and 21 weeks gestational age. Please let your physician know if you are interested in this testing. It will require an appointment withour septic tank service technician. This is not an ultrasound performed by a physician in our office during a routine visit. SIGNS AND SYMPTOMS OF LABOR 1. Contractions every 10 minutes or more often 2. Clear, pink, or brownish fluid (water) leaking from vagina 3. Feeling that baby is pushing down, pressure 4. Low, dull backache 5. Cramps that feel like a period 6. Cramps with or without diarrhea If you notice any of the above symptoms, contact our office at [phone] and ask to speak with anurse. After hours, you can call doctors registry at [phone] OR call [facility] at [phone] ask to have the doctor medication coordinator paged. If you consider this an emergency, dial 9-1-1 or go to your nearest emergency department. NEED HELP? Are you dealing with a violent or abusive relationship? Are you a victim of rape or sexual assult? Call [facility] ([place]) 24 hour Crisis Hotline: 561.353.6989 or 280-493-5976. MANUAL Your Guide to a Healthy manual is now on-line. Visit [email or web address] to download your free copy documented in this encounterLakehealth [facility] Center11-03-2022 Miscellaneous Notes* Quick Notes - Renee Mai MD - 02/28/2022 10:31 AM EDT DM- Pt doing well today. Denies Vaginal Bleeding, Leaking fluid, or contractions. Pt reports good movement. Continue ASA. Declines Flu. RTO 4 wks. Renee Avina MD documented in this encounterLakehealth [facility] Center11-03-2022 Instructions* Patient Instructions* Xochitl Rooney Ma - 02/28/2022 10:16 AM EDT SEQUENTIAL SCREENINGS The [facility] offers sequential screenings for women who are interested in screenings for chromosomal abnormalities and certain defects during a . The sequential screen combinesultrasound and blood tests to determine the risk of chromosomal abnormalities, including Down's Syndrome (Trisomy 21) and Trisomy 18, as well as open neural tube defects including spina bifida. Ultrasound examination is performed between 11 weeks and 13 weeks gestational age. Blood tests are drawn after the ultrasound and again later in the between 15 and 21 weeks gestational age. Please let your physician know if you are interested in this testing. It will require an appointment withour septic tank service technician. This is not an ultrasound performed by a physician in our office during a routine visit. SIGNS AND SYMPTOMS OF LABOR 1. Contractions every 10 minutes or more often 2. Clear, pink, or brownish fluid (water) leaking from vagina 3. Feeling that baby is pushing down, pressure 4. Low, dull backache 5. Cramps that feel like a period 6. Cramps with or without diarrhea If you notice any of the above symptoms, contact our office at [phone] and ask to speak with anurse. After hours, you can call doctors registry at [phone] OR call [facility] at [phone] ask to have the doctor medication coordinator paged. If you consider this an emergency, dial 4-9- or go to your nearest emergency department. NEED HELP? Are you dealing with a violent or abusive relationship? Are you a victim of rape or sexual assult? Call [facility] ([place]) 24 hour Crisis Hotline: 713.783.8111 or 543-099-9586. MANUAL Your Guide to a Healthy manual is now on-line. Visit [email or web address] to download your free copy documented in this encounterLakehealth [facility] Center10-07-2022 Miscellaneous Notes* Quick Notes - Renee Mai MD - 02/01/2022 2:44 PM EDT DM- Pt doing well today. Denies Vaginal Bleeding, Leaking fluid, or contractions. Pt reports good movement. Anatomy us pending- GIRL. AFP today. Declines flu vaccine. RTO 4 wks. Continue ASA. Renee Avina MD documented in this encounterLakehealth [facility] Center10-07-2022 Instructions* Patient Instructions* Xochitl Rooney Ma - 02/01/2022 1:41 PM EDT SEQUENTIAL SCREENINGS The [facility] offers sequential screenings for women who are interested in screenings for chromosomal abnormalities and certain defects during a . The sequential screen combinesultrasound and blood tests to determine the risk of chromosomal abnormalities, including Down's Syndrome (Trisomy 21) and Trisomy 18, as well as open neural tube defects including spina bifida. Ultrasound examination is performed between 11 weeks and 13 weeks gestational age. Blood tests are drawn after the ultrasound and again later in the between 15 and 21 weeks gestational age. Please let your physician know if you are interested in this testing. It will require an appointment withour septic tank service technician. This is not an ultrasound performed by a physician in our office during a routine visit. SIGNS AND SYMPTOMS OF LABOR 1. Contractions every 10 minutes or more often 2. Clear, pink, or brownish fluid (water) leaking from vagina 3. Feeling that baby is pushing down, pressure 4. Low, dull backache 5. Cramps that feel like a period 6. Cramps with or without diarrhea If you notice any of the above symptoms, contact our office at [phone] and ask to speak with anurse. After hours, you can call doctors registry at [phone] OR call [facility] at [phone] ask to have the doctor medication coordinator paged. If you consider this an emergency, dial 7-6-9 or go to your nearest emergency department. NEED HELP? Are you dealing with a violent or abusive relationship? Are you a victim of rape or sexual assult? Call [facility] ([facility] 24 hour Crisis Hotline: 109.585.5596 or 102-762-8010. MANUAL Your Guide to a Healthy manual is now on-line. Visit [email or web address] to download your free copy documented in this encounterLakehealth [facility] Center09-16-2022 Miscellaneous Notes* Telephone Encounter - Renee Mai MD - 01/11/2022 1:48 PM EDT I am not concerned with WORLEY as she is only 15 weeks. WORLEY can be normal in - follow up with pcp is fine to r/o other etiologies. documented in this encounterLakehealth [facility] Center09-12-2022 Miscellaneous Notes* Telephone Encounter - Cyndi Rodriguez RN - 01/07/2022 10:40 AM EDT Called Krista Mast and identified by name and date of . Krista Mast was informed of negative Non-Invasive Testing (NIPT) results for Trisomy 21, Trisomy 18 and Trisomy 13. Patientwas also notified of the result of no sex chromosome aneuploidy detected. Patient wishes to know sex, which is reported as: female. Reviewed with patient Krista Mast that NIPT is considered screening and not diagnostic, so this result greatly reduces, but does not eliminate the chance that the fetus could have trisomy 21, trisomy 18, trisomy 13 or sex chromosome aneuploidy. Krista Mast indicated understanding this information. Patient advised to follow up with AFP neural tube defect screening (blood draw) at 16-18 weeksgestation and 18-20 week detailed anatomy ultrasound. Also instructed to follow-up with Primary OB Provider. Cyndi Rodriguez RN documented in this encounterLakehealth [facility] Center09-01-2022 Miscellaneous Notes* Quick Notes - Renee Mai MD - 12/27/2021 4:26 PM EDT DM- Pt doing well today. Denies Vaginal Bleeding, Leaking fluid, or cramping. Some nausea at night.NT today. RTO 4 wks. Anatomy us ordered. Taking ASA. Renee Avina MD documented in this encounterLakehealth [facility] Center09-01-2022 Instructions* Patient Instructions* Xochitl Rooney Ma - 12/27/2021 3:16 PM EDT SEQUENTIAL SCREENINGS [facility] offers sequential screenings for women who are interested in screenings for chromosomal abnormalities and certain defects during a . The sequential screen combinesultrasound and blood tests to determine the risk of chromosomal abnormalities, including Down's Syndrome (Trisomy 21) and Trisomy 18, as well as open neural tube defects including spina bifida. Ultrasound examination is performed between 11 weeks and 13 weeks gestational age. Blood tests are drawn after the ultrasound and again later in the between 15 and 21 weeks gestational age. Please let your physician know if you are interested in this testing. It will require an appointment withour septic tank service technician. This is not an ultrasound performed by a physician in our office during a routine visit. SIGNS AND SYMPTOMS OF LABOR 1. Contractions every 10 minutes or more often 2. Clear, pink, or brownish fluid (water) leaking from vagina 3. Feeling that baby is pushing down, pressure 4. Low, dull backache 5. Cramps that feel like a period 6. Cramps with or without diarrhea If you notice any of the above symptoms, contact our office at [phone] and ask to speak with anurse. After hours, you can call doctors registry at [phone] OR call [facility] at [phone] ask to have the doctor medication coordinator paged. If you consider this an emergency, dial 1-1-4 or go to your nearest emergency department. NEED HELP? Are you dealing with a violent or abusive relationship? Are you a victim of rape or sexual assult? Call [facility] ([place]) 24 hour Crisis Hotline: 526.103.4219 or 091-828-0079. MANUAL Your Guide to a Healthy manual is now on-line. Visit [email or web address] to download your free copy documented in this encounterLakehealth [facility]wood [facility] Center08-04-2022 Miscellaneous Notes* Telephone Encounter - Meme Meyer APRN.CNP - 11/29/2021 11:52 AM EDT This has since been addressed by Pati Sinha APRN on 11/28/21. Closing this encounter. Meme Zurawick, 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VISOR * Telephone Encounter - Safia Hazel Ma - 11/27/2021 12:09 PM EDT See pt message. Safia Hazel Ma documented in this encounterLakehealth Beachwood Medical Center08-04-2022 Miscellaneous Notes* Telephone Encounter - Meme Meyer APRN.GABBIE - 11/29/2021 11:51 AM EDT This has since been addressed by Pati Sinha APRN on 11/28/21. Closing this encounter. Meme Meyer APRN.LEATHER [employer]ODU[employer] SUPERVISOR documented in this encounterLakehealth Beachwood [facility] Center08-03-2022 Miscellaneous Notes* Quick Notes - Renee Mai MD - 11/28/2021 3:53 PM EDT DM- New OB. Maternity 21 and NT requested. Baby ASA reviewed. RTO 4 wks. Renee Avina MD documented in this encounterLakehealth Beachwood [facility] Center08-03-2022 Instructions* Patient Instructions* Xochitl Rooney Ma - 11/28/2021 3:14 PM EDT Please select the following link to access the [facility] Your Guide to a Healthy . [email or web address] documented in this encounterLakehealth Beachwood Medical Center08-03-2022 History of Present illness Narrative* Renee Mai MD - 11/28/2021 3:13 PM EDT INITIAL OB ASSESSMENT OB Provider: Renee Mai MD HPI: Krista Mast is a 30 year old female here to establish Obstetrical Care. Patient'slast menstrual period was 09/26/2021 (exact date). from OB Dating Form. Cycle length: 33-34 days Complaints: None was planned. OB History T3 L3 SAB0 IAB0 Ectopic0 Multiple0 Live Births3 Prior : never History of 4th degree laceration: No Patient's Risk Screening for delivery: History of abnormal pap: Yes Prior treatment for cervical dysplasia: none. History of STDs: None Tobacco use: No Caffeine use: Yes Drug use: No Alcohol use: No Multivitamin with Folic acid: Yes Occupation: Home Cheondoism or heritage: No Would refuse blood transfusion if medically necessary: No BMI 31.64 kg/(m^2) Patient BMI over 30? 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 ascorbic acid, vitamin C, (VITAMIN C) 500 mg tablet Take 500 mg by mouth once daily. lactobacillus rhamnosus (CULTURELLE) 10 billion cell capsule Take 1 capsule by mouth once daily. LORazepam (ATIVAN) 0.5 mg Take by mouth twice daily as needed. cephALEXin (KEFLEX) 500 mg capsule Take 1 capsule by mouth twice daily for 10 days. olopatadine (PATANOL) 0.1 % ophthalmic solution Use 1 Drop in both eyes twice daily. fluticasone (FLONASE) 50 mcg/actuation nasal spray Use 2 Sprays in each nostril once daily. Rinse mouth after use. cetirizine (ZYRTEC) 10 mg tablet Take 10 mg by mouth once daily. No current facility-administered medications on file prior to visit. Review of Systems: GENERAL: Negative for: Fever or Chills HEENT: Negative for: Headache, Impaired Vision, Ringing in Ears, Nosebleeds NECK: Negative for: Swelling, Pain, Stiffness RESPIRATORY: Negative for: Cough, Shortness of breath, Wheezing GASTROINTESTINAL: Negative for: Heartburn, Constipation, Diarrhea, Blood in stool, Vomiting MUSCULOSKELETAL: Negative for: Muscle or joint pain, stiffness, Joint swelling NEUROLOGIC/PSYCHIATRIC: Negative for: Weakness, Paralysis, Numbness, Tingling, Tremor, Anxiety, Depression, Memory loss SKIN: Negative for: Rash, Itching GENITOURINARY: Negative for: vaginal itching, vaginal discharge, hematuria or dysuria PHYSICAL EXAM: BP 110/70 Ht 5' 7 (1.70m) Wt 202 lb (91.6kg) LMP 09/26/2021 BMI 31.63 kg/(m^2). GENERAL: pleasant female in no apparent distress DERMATOLOGY: Normal, without lesions, non-icteric and non-hirsute NECK: Supple, full range of motion, no adenopathy and thyroid normal BREAST: soft, non-tender, symmetric, no dominant mass, normal nipple-areolar complex, no lymphadenopathy and no nipple discharge ABDOMEN: soft, non-tender and no masses NEURO: alert and oriented x3,exam grossly non-focal PELVIS: External genitalia normal without lesions. Perineal body intact. No vaginal or cervical lesions. Cervix closed. Uterus 8 week size. No adnexal masses or tenderness. Clinical Pelvimetry: Pelvimetry clinically assessed as adequate Limited OB ultrasound exam: single intrauterine , positive cardiac activity and C/w 8w3d OB Risk Screening: Completed, no positive findings documented. ASSESSMENT: 30 year old at 8.3 wks gestational age PLAN: 1) Patient oriented to practice. Discussed nutrition, folic acid supplementation, dietary guidelines, exercise, smoking, alcohol, caffeine, and drug use. Discussed routine OB labs including STD/HIV. Discussed aneuploidy screening options including serum screening and nuchal translucency. 2) Obesity in preg- recommend asa 3) Maternity 21 requested- M notified Follow up in 4 weeks or sooner prn. Renee Avina MD documented in this encounterLakehealth Beachwood [facility] Center07-28-2022 Miscellaneous Notes* Telephone Encounter - Shanthi Mitchell MD - 11/22/2021 3:41 PM EDT Agree with advice Keflex safe in * Telephone Encounter - Diane Garza RN - 11/22/2021 2:50 PM EDT Patient had telephone Pre new OB today. She states that she and her have been treated for recurrent strep throat infections. Patient states she was on antibiotics October 15, November 05 and November 20. She states that her 3 daughters have been found to be asymptomatic carriers of strep throat. Patient's daughters have seen Dr. Cruz and there was a physician to physician consult with Dr. Lozano, Pediatric Infectious Disease. You can view consult under Lona Mast, patient's daughter, . Patient is currently taking Keflex. Patient is currently wondering if there is anything she should be concerned about regarding the . I have advised her that recurrent use of antibiotics can lead to C. difficile. I told her she should report any diarrhea that is persistent. I recommended getting some kind of probiotic. She is on Culturelle right now. I recommended considering getting the refrigerated probiotic. She is eating yogurt. Denies any vaginal irritation or abnormal discharge. She has a new OB appointment with Dr. Mai on November 28. She is advised to call/come in sooner if she develops any vaginal irritation or abnormal vaginal discharge. She is to report to her PCP if she does develop diarrhea. Call patient only if further advice. documented in this encounterL[facility] History of Present illness Narrative* Diane Garza RN - 11/22/2021 3:16 PM EDT # 1 - Date: [birth year], Sex: Female, Weight: 7 lb 15 oz (3.6 kg), GA: 40w3d, Delivery: Vaginal, Spontaneous, Apgar1: 8, Apgar5: 9, Living: Living, Comments: Spontaneous labor, 1st degree vaginal tear, EBL 250cc # 2 - Date: 10/21/16, Sex: Female, Weight: 9 lb 4 oz (4.196 kg), GA: 40w1d, Delivery: Vaginal, Spontaneous, Apgar1: None, Apgar5: None, Living: Living, Comments: spontaneous labor,SROM, 1st degree laceration, EBL 300cc # 3 - Date: 01/24/20, Sex: Female, Weight: 7 lb 13 oz (3.544 kg), GA: 39w0d, Delivery: Vaginal, Spontaneous, Apgar1: 9, Apgar5: 9, Living: Living, Comments: 1st deg perineal lac- no repair, [id number] mL, loose nuchal cord x2, congenital laryngomyalacia # 4 - Date: None, Sex: None, Weight: None, GA: None, Delivery: None, Apgar1: None, Apgar5: None, Living: None, Comments: None documented in this encounterL[facility]07-28-[facility]22 Miscellaneous Notes* Quick Notes - Diane Garza RN - 11/22/2021 3:00 PM EDT DISTANCE HEALTH VISIT This Team Access Model visit is a phone encounter. It required patient-provider interaction for themedical decision making as documented below. She states that she and her have been treated for recurrent strep throat infections. Patient states she was on antibiotics October 15, November 05 and November 20. She states that her 3 daughters have been found to be asymptomatic carriers of strep throat. Patient's daughters have seen Dr. Cruz and there was a physician to physician consult with Dr. Lozano, Pediatric Infectious Disease. You can view consult under Lona Mast, patient's daughter, . Patient is currently taking Keflex. See telephone note to Dr. Mitchell . I have advised her that recurrent use of antibiotics can lead to C. difficile. I told her she should report any diarrhea that is persistent. I recommended getting some kind of probiotic. She is on Culturelle right now. I recommended considering getting the refrigerated probiotic. She is eating yogurt. Denies any vaginal irritation or abnormal discharge. She has a new OB appointment with Dr. Mai on [place] [address]. She is advised to call/come in sooner if she develops any vaginal irritationor abnormal vaginal discharge. She is to report to her PCP if she does develop diarrhea. Patient has a history of anxiety. States she did have depression after the of her second child that was treated by her PCP. She does see a therapist. Takes lorazepam as needed. Discussed [facility] risks of depression during and and importance of reporting the development or worsening of symptoms should they occur.Pt denies ever having any suicidal thoughts or tendenciesor thoughts of hurting others. Patient's youngest daughter had congenital laryngomalacia. Patient second child weighed 9 pounds 4 ounces at . Patient is obese. We will plan on early hemoglobin A1c. Patient considering aneuploidy screening. Discussed options. Patient was given number to [employer] to check on coverage for maternity 21+ test. Patient declines genetic carrier screeningtesting.Diane Garza RN documented in this encounterL[facility]07-26-[facility] History of Present illness Narrative* Pati Sinha, 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VISOR - 11/20/2021 11:32 AM EDT 11/20/2021 Patient presents with: Sore Throat: x1 day SUBJECTIVE: This is a 30 year old that is here today for Above Complaints. Had strep throat back in September and was treated. Reports at [facility] last week and tested positive again for strep. Finished antibiotic on Friday. Last night throat sore again. Reports tested positive for strep last and she has been trying to stay away from him. Denies fever, chills, nasal congestion, headaches, muscle aches, difficulty swallowing or handing own secretion, SOB,dyspnea, or wheezing Component Latest Ref Rng & Units 11/20/2021 Strep A (POCT) Negative Positive (A) Procedural Control Valid PAST MEDICAL HISTORY Diagnosis Date Abnormal Pap smear of cervix 2006 NORMAL PAPS SINCE Calculus of kidney 2007 JARED (generalized anxiety disorder) 02/14/2021 Recurrent UTI age 17 ALLERGIES Seasonal Allergies MEDICATIONS Current Outpatient Medications Medication Sig olopatadine (PATANOL) 0.1 % ophthalmic solution Use 1 Drop in both eyes twice daily. fluticasone (FLONASE) 50 mcg/actuation nasal spray Use 2 Sprays in each nostril once daily. Rinse mouth after use. cetirizine (ZYRTEC) 10 mg tablet Take 10 mg by mouth once daily. No current facility-administered medications for this visit. Medications and allergies reviewed by this provider. SOCIAL HISTORY Social History Tobacco Use Smoking status: Never Smoker Smokeless tobacco: Never Used Vaping Use Vaping Use: Never used Substance Use Topics Alcohol use: Yes Comment: rarely- not while Drug use: No REVIEW OF SYSTEMS All other reviewed and negative other than HPI. OBJECTIVE: BP 112/70 Pulse 89 Temp 36.8 C (98.3 F) Resp 18 Wt 91.4 kg (201 lb 6.4 oz) LMP 09/23/2021 SpO2 100% BMI 32.51 kg/m . Vital signs reviewed by this provider. APPEARANCE Well appearing, alert, in no acute distress, well-hydrated, well nourished. EYES conjunctiva and sclera normal. EARS External ears normal, canals clear THROAT moderate erythema, tonsillar hypertrophy, 1+ and exudates present NECK Supple, no adenopathy; thyroid symmetric, normal size, no bruits HEART RRR with normal S1 and S2, no murmurs, no gallops, no JVD appreciated Lungs: Lungs clear to auscultation, No wheezing, rales or rhonchi SKIN Skin color, texture, turgor normal, no suspicious rashes or lesions to exposed skin COVID-19 VACCINE(1) Never done HPV TESTING due on 02/29/2020 INFLUENZA(1) due on 12/27/2021 DEPRESSION SCREENING due on 02/12/2022 PAP TESTING due on 06/11/2024 DTAP,TDAP,TD(3 - Td or Tdap) due on 07/22/2026 HEPATITIS C SCREENING Completed HIV SCREENING Completed ASSESSMENT/PLAN: 1. Strep throat - ICD9: 034.0, ICD10: J02.0 - suspect strep - Rapid Strep positive in the office today - antibiotic as written - Discussed supportive care treatment with fluids, rest and analgesia. - The patient may also use warm salt water gargles, throat lozenges and/or OTC throat spray as needed. - Contagious dz precautions discussed- including considered contagious until on antibiotics for 24 hours - The patient should follow up in 3-5 days if symptoms persist or worsen - Call back if drooling, increased temperature, symptoms of dehydration and/or still sick in one week - CEPHALEXIN 500 MG CAPSULE - follow-up if symptoms fail to improve, to ER with red flag symptoms Pati Sinha APRN.CNP Prescription instructions reviewed with patient as applicable. Patient advised if symptoms do not improve or if symptoms worsen sooner, to contact their primary care physician. Potential red flag symptoms discussed with the patient. Reviewed appropriate action plan to take if red flag symptoms occur. Patient agreeable to treatment plan. I spent a total of 30 minutes on the date of the service which included preparing to see the patient, [id number] patient care, completing clinical documentation, obtaining and/or reviewing separately obtained history, performing a medically appropriate examination, counseling and educating the pat ient/family/caregiver and ordering medications, tests, or procedures. documented in this encounterL[facility]06-20-2022 Instructions* Patient Instructions* Noemy Camarillo APRN.CNP - 10/15/2021 9:18 AM EDT Start the amoxicillin twice daily X 10 days. STREP INFECTIONS: Streptococcal bacteria can cause a sore throat, ear and sinus infections, and skin diseases. Strep throat is diagnosed by a special throat swab or culture test. These infections require either an antibiotic shot or an oral antibiotic medicine to get rid of all the bacteria and prevent rheumatic fever, a dangerous complication. The symptoms of Strep infection, however, usually get better after just 2-3 days of drug treatment. These infections are very contagious; any close contacts who have a fever, sore throat, or illness symptoms should see their doctor right away. Strep is no longer contagious after 24 hours of antibiotic treatment so you may return to school or work if your fever and pain are better in one day. Strep infections can cause serious complications including throat abscess, rheumatic fever and kidney disease, so be sure to take all your antibiotic medicine. See your doctor or return here if your symptoms worsen or are not improved in 3 days or for difficulty breathing or inability to swallow. documented in this encounterL[facility]06-20-2022 History of Present illness Narrative* Noemy Camarillo APRN.[employer] SUPERVISOR - 10/15/2021 9:00 AM EDT This is a 30 year old female who presents today with: Patient presents with: Sore Throat: x4 days with chills HISTORY OF PRESENT ILLNESS: Krista Mast is a 30 year old female. Patient presents with: Sore Throat: x4 days with chills Pt presents today with complaint of sore throat. Refers that it started Friday night. + chills. + fatigue. No head congestion. Left ear pain. Minimal cough, but thinks related to seasonal allergies. No n/v/d. No one else around her sick. Advil, cough drops, salt water gargles, as needed. She was participating in [employer] last week and was around 200 + people. PAST MEDICAL HISTORY: PAST MEDICAL HISTORY Diagnosis Date Abnormal Pap smear of cervix 2006 NORMAL PAPS SINCE Calculus of kidney 2007 JARED (generalized anxiety disorder) 02/14/2021 Recurrent UTI age 17 PAST SURGICAL HISTORY Procedure Laterality Date PAST SURGICAL HISTORY OF wisdom teeth extracted ALLERGIES Seasonal Allergies MEDICATIONS Current Outpatient Medications Medication Sig olopatadine (PATANOL) 0.1 % ophthalmic solution Use 1 Drop in both eyes twice daily. fluticasone (FLONASE) 50 mcg/actuation nasal spray Use 2 Sprays in each nostril once daily. Rinse mouth after use. vit no.[id number] 400 mcg- 25 mg chew cetirizine (ZYRTEC) 10 mg tablet Take 10 mg by mouth once daily. No current facility-administered medications for this visit. FAMILY HISTORY Problem Relation Age of Onset Heart Mother Hypertension Mother Hypertension Father other (uterine cancer) Maternal Grandmother Heart Maternal Grandfather CHF Diabetes Paternal Grandmother Heart Paternal Grandfather other (hepatitis) Maternal Uncle other (healthy) Daughter [place] Social History Tobacco Use Smoking status: Never Smoker Smokeless tobacco: Never Used Vaping Use Vaping Use: Never used Substance Use Topics Alcohol use: Yes Comment: rarely- not while Drug use: No EXAM: BP 112/82 Pulse 119 Temp 37.3 C (99.1 F) Resp 18 LMP 09/23/2021 SpO2 99% PHYSICAL EXAM: General Appearance: Well appearing, alert, in no acute distress, well-hydrated, well nourished.. Skin: Skin color, texture, turgor normal, no suspicious rashes or lesions. Head: Normocephalic, no masses, lesions, tenderness or abnormalities. Eyes: Anicteric sclera. Pupils are equally round and reactive to light. Extraocular movements are intact. . Ears: External ears normal, canals clear, Normal TMs bilaterally. Oropharynx: Lips, mucosa, and tongue normal, teeth and gums normal, oropharynx normal and Positive findings: moderate oropharyngeal erythema. Neck: Supple, + anterior cervical adenopathy. Lungs: Lungs clear to auscultation. No wheezing, rhonchi, rales.. Heart: RRR without murmur, gallop, or rubs. No ectopy. Neurologic: Gait normal. ASSESSMENT/PLAN: 1. Strep throat - ICD9: 034.0, ICD10: J02.0 (primary diagnosis) - Alere Strep Test Positive, no culture pending - antibiotic as written and Amoxicillin for 10 days. - Discussed supportive care treatment with fluids, rest and analgesia. - The patient may also use warm salt water gargles, throat lozenges and/or OTC throat spray as needed. - Contagious dz precautions discussed- including considered contagious until on antibiotics for 24 hours - The patient should follow up in 3-5 days if symptoms persist or worsen - Call back if drooling, increased temperature, symptoms of dehydration and/or still sick in one week - AMOXICILLIN 500 MG CAPSULE 2. Sore throat - ICD9: 462, ICD10: J02.9 - STREP A MOLECULAR (POC) Discussed treatment plan and patient voices understanding. Patient's questions answered appropriately. Medications and potential side effects were discussed and patient voices understanding. Return to the office as scheduled or as needed for worsening/no improvement. Noemy Camarillo APRN.CNP The patient indicates understanding of these issues and agrees with the plan. documented in this encounterL[facility]05-19-2014 History of Past illness Narrative* Problem Noted Date Resolved Date Supervision of normal first 09/13/2013 07/01/2014 Overview: XX History of kidney stones 09/09/2013 015 Overview: 09/09/2013 She has a history of kidney stones in 2008. She denies any recurrences. TKRN documented as of this encounter (statuses as of 10/15/2021) [facility] of Past illness Narrative* Problem Noted Date Resolved Date Supervision of normal first 09/13/2013 07/01/2014 Overview: XX History of kidney stones 09/09/2013 015 Overview: 09/09/2013 She has a history of kidney stones in 2008. She denies any recurrences. TKRN documented as of this encounter (statuses as of 11/20/2021) [facility] of Past illness Narrative* Problem Noted Date Resolved Date Supervision of normal first 09/13/2013 07/01/2014 Overview: XX History of kidney stones 09/09/2013 015 Overview: 09/09/2013 She has a history of kidney stones in 2008. She denies any recurrences. TKRN documented as of this encounter (statuses as of 11/22/2021) [facility] of Past illness Narrative* Problem Noted Date Resolved Date Supervision of normal first 09/13/2013 07/01/2014 Overview: XX History of kidney stones 09/09/2013 015 Overview: 09/09/2013 She has a history of kidney stones in 2008. She denies any recurrences. TKRN documented as of this encounter (statuses as of 11/22/2021) [facility] of Past illness Narrative* Problem Noted Date Resolved Date Supervision of normal first 09/13/2013 07/01/2014 Overview: XX History of kidney stones 09/09/2013 015 Overview: 09/09/2013 She has a history of kidney stones in 2008. She denies any recurrences. TKRN documented as of this encounter (statuses as of 11/28/2021) [facility] of [facility] illness Narrative* Problem Noted Date Resolved Date Supervision of normal first 09/13/2013 07/01/2014 Overview: XX History of kidney stones 09/09/2013 015 Overview: 09/09/2013 She has a history of kidney stones in 2007. She denies any recurrences. TKRN documented as of this encounter (statuses as of 11/28/2021) [facility] of [facility] illness Narrative* Problem Noted Date Resolved Date Supervision of normal first 09/13/2013 07/01/2014 Overview: XX History of kidney stones 09/09/2013 015 Overview: 09/09/2013 She has a history of kidney stones in 2007. She denies any recurrences. TKRN documented as of this encounter (statuses as of 11/29/2021) [facility] illness Narrative* Problem Noted Date Resolved Date Supervision of normal first 09/13/2013 07/01/2014 Overview: XX History of kidney stones 09/09/2013 015 Overview: 09/09/2013 She has a history of kidney stones in 2007. She denies any recurrences. TKRN documented as of this encounter (statuses as of 12/27/2021) [facility] illness Narrative* Problem Noted Date Resolved Date Supervision of normal first 09/13/2013 07/01/2014 Overview: XX History of kidney stones 09/09/2013 015 Overview: 09/09/2013 She has a history of kidney stones in 2007. She denies any recurrences. TKRN documented as of this encounter (statuses as of 12/27/2021) [facility] illness Narrative* Problem Noted Date Resolved Date Supervision of normal first 09/13/2013 07/01/2014 Overview: XX History of kidney stones 09/09/2013 015 Overview: 09/09/2013 She has a history of kidney stones in 2008. She denies any recurrences. TKRN documented as of this encounter (statuses as of 01/07/2022) [facility] Narrative* Problem Noted Date Resolved Date Supervision of normal first 09/13/2013 07/01/2014 Overview: XX History of kidney stones 09/09/2013 015 Overview: 09/09/2013 She has a history of kidney stones in 2008. She denies any recurrences. TKRN documented as of this encounter (statuses as of 01/11/2022) [facility] Narrative* Problem Noted Date Resolved Date Supervision of normal first 09/13/2013 07/01/2014 Overview: XX History of kidney stones 09/09/2013 015 Overview: 09/09/2013 She has a history of kidney stones in 2008. She denies any recurrences. TKRN documented as of this encounter (statuses as of 02/01/2022) [facility] Narrative* Problem Noted Date Resolved Date Supervision of normal first 09/13/2013 07/01/2014 Overview: XX History of kidney stones 09/09/2013 015 Overview: 09/09/2013 She has a history of kidney stones in 2007. She denies any recurrences. TKRN documented as of this encounter (statuses as of 02/01/2022) [facility] Narrative* Problem Noted Date Resolved Date Supervision of normal first 09/13/2013 07/01/2014 Overview: XX History of kidney stones 09/09/2013 015 Overview: 09/09/2013 She has a history of kidney stones in 2007. She denies any recurrences. TKRN documented as of this encounter (statuses as of 02/28/2022) [facility] Narrative* Problem Noted Date Resolved Date Supervision of normal first 09/13/2013 07/01/2014 Overview: XX History of kidney stones 09/09/2013 015 Overview: 09/09/2013 She has a history of kidney stones in 2007. She denies any recurrences. TKRN documented as of this encounter (statuses as of 04/12/2022) [facility] Narrative* Problem Noted Date Resolved Date Supervision of normal first 09/13/2013 07/01/2014 Overview: XX History of kidney stones 09/09/2013 015 Overview: 09/09/2013 She has a history of kidney stones in 2007. She denies any recurrences. TKRN documented as of this encounter (statuses as of 05/01/2022) [facility] Narrative* Problem Noted Date Resolved Date Supervision of normal first 09/13/2013 07/01/2014 Overview: XX History of kidney stones 09/09/2013 015 Overview: 09/09/2013 She has a history of kidney stones in 2007. She denies any recurrences. TKRN documented as of this encounter (statuses as of 05/13/2022) [facility] Narrative* Problem Noted Date Resolved Date Supervision of normal first 09/13/2013 07/01/2014 Overview: XX History of kidney stones 09/09/2013 015 Overview: 09/09/2013 She has a history of kidney stones in 2007. She denies any recurrences. TKRN documented as of this encounter (statuses as of 05/30/2022) [facility] Narrative* Problem Noted Date Resolved Date Supervision of normal first 09/13/2013 07/01/2014 Overview: XX History of kidney stones 09/09/2013 015 Overview: 09/09/2013 She has a history of kidney stones in 2007. She denies any recurrences. TKRN documented as of this encounter (statuses as of 06/04/2022) [facility] Narrative* Problem Noted Date Resolved Date Supervision of normal first 09/13/2013 07/01/2014 Overview: XX History of kidney stones 09/09/2013 015 Overview: 09/09/2013 She has a history of kidney stones in 2007. She denies any recurrences. TKRN documented as of this encounter (statuses as of 06/05/2022) [facility] Narrative* Problem Noted Date Resolved Date Supervision of normal first 09/13/2013 07/01/2014 Overview: XX History of kidney stones 09/09/2013 015 Overview: 09/09/2013 She has a history of kidney stones in 2007. She denies any recurrences. TKRN documented as of this encounter (statuses as of 06/09/2022) [facility] Narrative* Problem Noted Date Resolved Date Supervision of normal first 09/13/2013 07/01/2014 Overview: XX History of kidney stones 09/09/2013 015 Overview: 09/09/2013 She has a history of kidney stones in 2007. She denies any recurrences. TKRN documented as of this encounter (statuses as of 06/13/2022) [facility] Narrative* Problem Noted Date Resolved Date Supervision of normal first 09/13/2013 07/01/2014 Overview: XX History of kidney stones 09/09/2013 015 Overview: 09/09/2013 She has a history of kidney stones in 2007. She denies any recurrences. TKRN documented as of this encounter (statuses as of 06/21/2022) [facility] [place] [facility]* Diagnosis Strep throat- Primary Streptococcal sore throat Sore throat Acute pharyngitis documented in this encounter [facility] [place] [facility]* Diagnosis Strep throat- Primary Streptococcal sore throat documented in this encounter [facility] [place] [facility]* Diagnosis H/O macrosomia in in prior , currently - Primary with other poor obstetric history Medication exposure during first trimester of Supervision of other high-risk History of depression Family history of defect Family history of congenital anomalies Obesity during documented in this encounter [facility] [place] [facility]* Diagnosis Encounter for supervision of other normal in first trimester- Primary Obesity in Obesity complicating , childbirth, or the puerperium, unspecified as to episode of care or not applicable documented in this encounter [facility] [place] [facility]* Diagnosis Encounter for supervision of other normal in first trimester- Primary documented in this encounter [facility] [place] [facility]* Diagnosis Encounter for (NT) nuchal translucency scan- Primary Other specified screening 13 weeks gestation of state, incidental documented in this encounter [facility] [place] [facility]* Diagnosis Encounter for supervision of other normal in second trimester- Primary Obesity in Obesity complicating , childbirth, or the puerperium, unspecified as to episode of care or not applicable 13 weeks gestation of state, incidental [facility] [place] [facility] Diagnosis Encounter for anatomic survey- Primary Obesity complicating , second trimester 18 weeks gestation of state, incidental [facility] Diagnosis Obesity during - Primary H/O macrosomia in infant in prior , currently with other poor obstetric history 18 weeks gestation of state, incidental [facility] Diagnosis Obesity during - Primary H/O macrosomia in infant in prior , currently with other poor obstetric history 22 weeks gestation of state, incidental [facility] [place] [facility]* Diagnosis History of macrosomia in in prior , currently , third trimester- Primary 28 weeks gestation of state, incidental [facility] [place] [facility]* Diagnosis Obesity during - Primary H/O macrosomia in infant in prior , currently with other poor obstetric history 30 weeks gestation of state, incidental [facility] Diagnosis 32 weeks gestation of - Primary state, incidental [facility]* Diagnosis Obesity during - Primary tachycardia before the onset of labor Abnormality in heart rate or rhythm before the onset of labor H/O macrosomia in in prior , currently with other poor obstetric history 35 weeks gestation of state, incidental documented in this encounter [facility] noteNo assessment information availableWKet[facility] Work Phone: evaluation note* Diagnosis 35 weeks gestation of - Primary state, incidental Decreased movements in third trimester, single or unspecified fetus documented in this encounter [facility] [place] [facility]* Diagnosis Decreased movements in third trimester, single or unspecified fetus- Primary Maternal obesity, antepartum Obesity complicating , childbirth, or the puerperium, antepartum condition or complication 36 weeks gestation of state, incidental documented in this encounter [facility] [place] [facility]* Diagnosis 36 weeks gestation of - Primary state, incidental documented in this encounter [facility] [place] [facility]* Diagnosis Obesity during - Primary H/O macrosomia in infant in prior , currently with other poor obstetric history 37 weeks gestation of state, incidental documented in this encounter [facility] [place] [facility]* Diagnosis Onset Date Resolution Status 35 weeks gestation of acute tachycardia [facility] Work Phone: Evaluation note* Diagnosis Onset Date Resolution Status 35 weeks gestation of acute tachycardia acute 38 weeks gestation of acute Care and examination of lactating mother acute (spontaneous vaginal delivery) acute [facility] Work Phone: Evaluation note* Diagnosis Acute cough- Primary Acute cough documented in this encounter [facility] [place] [facility]* Diagnosis Acute cough documented in this encounter [facility] [place] [facility]* Diagnosis Subacute cough- Primary Cough [facility] Additional Instructions Keep next office appointment.[facility] Work Phone: Hospital Discharge instructions Additional Instructions Call office in AM for continued complaint of leaking fluid.[facility] Work Phone: Reason for referral (narrative)* Diagnostic Procedure Only (Routine) - Open Specialty Diagnoses / Procedures Referred By Contac t Referred To Contact [facility] Diagnoses Encounter for supervision of other normal in first trimester Obesity in Procedures NUCHAL TRANSLUCENCY WHI US NUCHAL TRANSLUCENCY 1ST GESTATION Renee Kramer MD [address] [place] [address] [facility] [address] [address] Referral ID Status Reason Start Date Expiration Date V isits Requested Visits Authorized [id number] Open Auto-Generate d Referral 11/28/2021 11/28/2022 1 1 * Diagnostic Procedure Only (Routine) - Authorized Specialty Diagnoses / Procedures Referred By Contac t Referred To Contact [facility] Diagnoses Encounter for supervision of other normal in first trimester Obesity in Procedures OBSTETRIC ULTRASOUND WHI US PREG UTERUS AFTER 1ST TRIMEST GESTATION Renee Kramer MD [address] [place] [address] [facility] [address] [place] [address] Referral ID Status Reason Start Date Expiration Date Visits Requested Visits Authorized [id number] Authorized Auto-Generat ed Referral 11/28/2021 11/28/2022 1 1 T [facility] for referral (narrative)* Diagnostic Procedure Only (Routine) - Pending Review Specialty Diagnoses / Procedures Referred By Contac t Referred To Contact [facility] Diagnoses Encounter for supervision of other normal in second trimester Procedures OBSTETRIC ULTRASOUND WHI US PREG UTERUS AFTER 1ST TRIMEST GESTATION Renee Kramer MD [address] [place] [address] [facility] [address] [place] [address] Referral ID Status Reason Start Date Expiration Date Visits Requested Visits Authorized [id number] Pending Review Auto-Generat ed Referral 12/27/2021 12/27/2022 1 1 T [facility] for referral (narrative)* Diagnostic Procedure Only (Routine) - Pending Review Specialty Diagnoses / Procedures Referred By Contac t Referred To Contact [facility] Diagnoses 28 weeks gestation of History of macrosomia in infant in prior , currently , third trimester Procedures OBSTETRIC ULTRASOUND WHI US PREG UTERUS AFTER 1ST TRIMEST GESTATION Renee Kramer MD [address] [place] [address] [facility] [address] [place] [address] Referral ID Status Reason Start Date Expiration Date Visits Requested Visits Authorized [id number] Pending Review Auto-Generat ed Referral 04/12/2023 1 1 [facility] Summary Purpose Family History No Family History Records FoundNo Family History Records FoundNo Family History Records FoundNo Family History Records FoundNo Family History Records Found Advance Directives No Advanced Directives Records Found Advance Directive Response Recorded Date/ Time Living Will No January 24, 2020 7:29pm Power of Hvac Field Service Technician No December 7:29pm Advance Directive Response Recorded Date/ Time Living Will No June 19, 2 023 10:43am Power of Hvac Field Service Technician No June 19, 2022 10:43am Health Concerns Problem Noted Date OB Reminders 11/28/2021 Problem Noted Date OB Reminders 11/28/2021 Problem Noted Date OB Reminders 11/28/2021 Problem Noted Date OB Reminders 11/28/2021 Problem Noted Date OB Reminders 11/28/2021 Problem Noted Date OB Reminders 11/28/2021 Problem Noted Date OB Reminders 11/28/2021 Problem Noted Date OB Reminders 11/28/2021 Problem Noted Date OB Reminders 11/28/2021 Problem Noted Date OB Reminders 11/28/2021 Problem Noted Date OB Reminders 11/28/2021 Chief Complaint and Reason for Visit Chief Complaint MONITORING Chief Complaint MONITORING R/O LABOR Reason for Visit 35 weeks gestation o f tachycardia Chief Complaint MONITORING R/O LABOR VAG DELIVERY Reason for Visit 35 weeks gestation o f tachycardia 38 weeks gestation of Care and examination of lactating mother (spontaneous vaginal delivery) Additional Source Comments INFORMATION SOURCE (unrecogn ized section and content) DATE CREATED AUTHOR 10/21/2017 [facility] DATE CREATED AUTHOR AUTHOR'S ORGANIZ ATION 11/14/2021 [facility] DATE CREATED AUTHOR AUTHOR'S ORGANIZ ATION 02/06/2022 [facility] DATE CREATED AUTHOR AUTHOR'S ORGANIZ ATION 08/07/2022 [facility] DATE CREATED AUTHOR AUTHOR'S ORGANIZ ATION 04/23/2024 [facility] Source Comments (unrecognize d section and content) In the event this informatio n is protected by the Federal Confidentiality of Alcohol and Drug Abuse Patient Records regulations: The Federal rules restrict any use of the information to criminally investigate or prosecute any alcohol or drug abuse patient.[facility] the event this information is protected by the Federal Confidentiality of Alcohol and Drug Abuse Patient Records regulations: The Federal rules restrict any use of the information to criminally investigate or prosecute any alcohol or drug abuse patient.[facility] the event this information is protected by the Federal Confidentiality of Alcohol and Drug Abuse Patient Records regulations: The Federal rules restrict any use of the information to criminally investigate or prosecute any alcohol or drug abuse patient.[facility] Center[facility] the event this information is protected by the Federal Confidentiality of Alcohol and Drug Abuse Patient Records regulations: The Federal rules restrict any use of the information to criminally investigate or prosecute any alcohol or drug abuse patient.[facility] Center[facility] the event this information is protected by the Federal Confidentiality of Alcohol and Drug Abuse Patient Records regulations: The Federal rules restrict any use of the information to criminally investigate or prosecute any alcohol or drug abuse patient.[facility] CenterIn the event this information is protected by the Federal Confidentiality of Alcohol and Drug Abuse Patient Records regulations: The Federal rules restrict any use of the information to criminally investigate or prosecute any alcohol or drug abuse patient.[facility] Center[facility] the event this information is protected by the Federal Confidentiality of Alcohol and Drug Abuse Patient Records regulations: The Federal rules restrict any use of the information to criminally investigate or prosecute any alcohol or drug abuse patient.[facility] Center[facility] the event this information is protected by the Federal Confidentiality of Alcohol and Drug Abuse Patient Records regulations: The Federal rules restrict any use of the information to criminally investigate or prosecute any alcohol or drug abuse patient.[facility] CenterIn the event this information is protected by the Federal Confidentiality of Alcohol and Drug Abuse Patient Records regulations: The Federal rules restrict any use of the information to criminally investigate or prosecute any alcohol or drug abuse patient.[facility] CenterIn the event this information is protected by the Federal Confidentiality of Alcohol and Drug Abuse Patient Records regulations: The Federal rules restrict any use of the information to criminally investigate or prosecute any alcohol or drug abuse patient.[facility] CenterIn the event this information is protected by the Federal Confidentiality of Alcohol and Drug Abuse Patient Records regulations: The Federal rules restrict any use of the information to criminally investigate or prosecute any alcohol or drug abuse patient.[facility] Center[facility] the event this information is protected by the Federal Confidentiality of Alcohol and Drug Abuse Patient Records regulations: The Federal rules restrict any use of the information to criminally investigate or prosecute any alcohol or drug abuse patient.[facility] CenterIn the event this information is protected by the Federal Confidentiality of Alcohol and Drug Abuse Patient Records regulations: The Federal rules restrict any use of the information to criminally investigate or prosecute any alcohol or drug abuse patient.[facility] CenterIn the event this information is protected by the Federal Confidentiality of Alcohol and Drug Abuse Patient Records regulations: The Federal rules restrict any use of the information to criminally investigate or prosecute any alcohol or drug abuse patient.[facility] Center[facility] the event this information is protected by the Federal Confidentiality of Alcohol and Drug Abuse Patient Records regulations: The Federal rules restrict any use of the information to criminally investigate or prosecute any alcohol or drug abuse patient.[facility] CenterIn the event this information is protected by the Federal Confidentiality of Alcohol and Drug Abuse Patient Records regulations: The Federal rules restrict any use of the information to criminally investigate or prosecute any alcohol or drug abuse patient.[facility] CenterIn the event this information is protected by the Federal Confidentiality of Alcohol and Drug Abuse Patient Records regulations: The Federal rules restrict any use of the information to criminally investigate or prosecute any alcohol or drug abuse patient.[facility] CenterIn the event this information is protected by the Federal Confidentiality of Alcohol and Drug Abuse Patient Records regulations: The Federal rules restrict any use of the information to criminally investigate or prosecute any alcohol or drug abuse patient.[facility] CenterIn the event this information is protected by the Federal Confidentiality of Alcohol and Drug Abuse Patient Records regulations: The Federal rules restrict any use of the information to criminally investigate or prosecute any alcohol or drug abuse patient.[facility] CenterIn the event this information is protected by the Federal Confidentiality of Alcohol and Drug Abuse Patient Records regulations: The Federal rules restrict any use of the information to criminally investigate or prosecute any alcohol or drug abuse patient.[facility] CenterIn the event this information is protected by the Federal Confidentiality of Alcohol and Drug Abuse Patient Records regulations: The Federal rules restrict any use of the information to criminally investigate or prosecute any alcohol or drug abuse patient.[facility] CenterIn the event this information is protected by the Federal Confidentiality of Alcohol and Drug Abuse Patient Records regulations: The Federal rules restrict any use of the information to criminally investigate or prosecute any alcohol or drug abuse patient.[facility] CenterIn the event this information is protected by the Federal Confidentiality of Alcohol and Drug Abuse Patient Records regulations: The Federal rules restrict any use of the information to criminally investigate or prosecute any alcohol or drug abuse patient.[facility] CenterIn the event this information is protected by the Federal Confidentiality of Alcohol and Drug Abuse Patient Records regulations: The Federal rules restrict any use of the information to criminally investigate or prosecute any alcohol or drug abuse patient.[facility] CenterIn the event this information is protected by the Federal Confidentiality of Alcohol and Drug Abuse Patient Records regulations: The Federal rules restrict any use of the information to criminally investigate or prosecute any alcohol or drug abuse patient.[facility] CenterIn the event this information is protected by the Federal Confidentiality of Alcohol and Drug Abuse Patient Records regulations: The Federal rules restrict any use of the information to criminally investigate or prosecute any alcohol or drug abuse patient.[facility] CenterIn the event this information is protected by the Federal Confidentiality of Alcohol and Drug Abuse Patient Records regulations: The Federal rules restrict any use of the information to criminally investigate or prosecute any alcohol or drug abuse patient.[facility] CenterIn the event this information is protected by the Federal Confidentiality of Alcohol and Drug Abuse Patient Records regulations: The Federal rules restrict any use of the information to criminally investigate or prosecute any alcohol or drug abuse patient.[facility] Reason for Visit (unrecogniz ed section and content) Reason Comments Sore Throat x4 days with chills Reason Comments Sore Throat x1 day Reason Comments Care Reason Comments strep throat on Reason Comments Initial OB Visit Reason Comments US Specialty Diagnoses / Procedures Referred By Contac t Referred To Contact [facility] Diagnoses Encounter for supervision of other normal in first trimester Obesity in Procedures OBSTETRIC ULTRASOUND WHI US PREG UTERUS AFTER 1ST TRIMEST GESTATION Renee Kramer MD [address] [place] [address] [facility] [employer] [place] [place] [address] Referral ID Status Reason Start Date Expiration Date V isits Requested Visits Authorized [id number] Closed Auto-Generate d Referral 11/28/2021 11/28/2022 1 1 Reason Onset Date Comments Care 12/27/2021 Specialty Diagnoses / Procedures Referred By Contac t Referred To Contact [facility] Diagnoses Encounter for supervision of other normal in first trimester Obesity in Procedures NUCHAL TRANSLUCENCY WHI US NUCHAL TRANSLUCENCY 1ST GESTATION Renee Kramer MD [address] [place] [address] [facility] [address] [place] [address] Referral ID Status Reason Start Date Expiration Date V isits Requested Visits Authorized [id number] Closed Auto-Generate d Referral 12/14/2021 04/27/2022 1 1 Reason Comments NIPT results Specialty Diagnoses / Procedures Referred By Contac t Referred To Contact [facility] Diagnoses Encounter for supervision of other normal in second trimester Procedures OBSTETRIC ULTRASOUND WHI US PREG UTERUS AFTER 1ST TRIMEST GESTATION eRnee Kramer MD [address] [place] [address] [facility] [employer] [place] [place] [address] Referral ID Status Reason Start Date Expiration Date Visits Requested Visits Authorized [id number] Authorized Auto-Generat ed Referral 04/28/2021 04/27/2022 20 20 Reason Onset Date Comments Care 02/01/2022 Reason Onset Date Comments Care 02/28/2022 Reason Onset Date Comments Care 04/12/2022 Reason Onset Date Comments Care 04/26/2022 Reason Onset Date Comments Care 05/13/2022 Reason Onset Date Comments Care 05/30/2022 Reason Onset Date Comments Care 06/04/2022 Specialty Diagnoses / Procedures Referred By Contac t Referred To Contact [facility] Diagnoses Vaginal bleeding in , third trimester Decreased movements in third trimester, single or unspecified fetus Procedures BIOPHYSICAL PROFILE US WHI BIOPHYSICAL PROFILE NON-STRESS TESTING Silvia Vu APRN.CN [address] [place] [address] [facility] [address] [place] [address] Referral ID Status Reason Start Date Expiration Date V isits Requested Visits Authorized [id number] Closed Auto-Generate d Referral 06/05/2022 06/05/2023 10 1 Reason Onset Date Comments Care 06/05/2022 Reason Onset Date Comments Care 06/12/2022 Reason Comments Nasal Congestion drainage, chest tigh tness x 2 weeks Reason Comments Results Reason Comments Chest Congestion cough, fever increas ed x 2 days Care Teams (unrecognized sec tion and content) Shower Maid Relationship Specialty Start Date End Date Tyrese Torres DO [address] [place] [address] PCP - General Family Practice 12/26/15 Shower Maid Relationship Specialty Start Date End Date Tyrese Torres DO [address] [place], [place] [id number] PCP - General Family Practice 12/26/15 Shower Maid Relationship Specialty Start Date End Date Tyrese Torres DO [address] [place], [place] [id number] PCP - General Family Practice 12/26/15 Shower Maid Relationship Specialty Start Date End Date Tyrese Torres, DO [address] [place] [address] PCP - General Family Practice 12/26/15 Shower Maid Relationship Specialty Start Date End Date Tyrese Torres, DO [address] [place] [address] PCP - General Family Practice 12/26/15 Shower Maid Relationship Specialty Start Date End Date Tyrese Torres, DO [address] [place] [address] PCP - General Family Practice 12/26/15 Shower Maid Relationship Specialty Start Date End Date Tyrese Torres, DO [address] [place] [address] PCP - General Family Practice 12/26/15 Shower Maid Relationship Specialty Start Date End Date Tyrese Torres, DO [address] [place] [address] PCP - General Family Practice 12/26/15 Shower Maid Relationship Specialty Start Date End Date Tyrese Torres, DO [address] [place] [address] PCP - General Family Practice 12/26/15 Shower Maid Relationship Specialty Start Date End Date Tyrese Torres, DO [address] [place] [address] PCP - General Family Practice 12/26/15 Shower Maid Relationship Specialty Start Date End Date Tyrese Torres, DO [address] [place] [address] PCP - General Family Medicine 12/26/15 Shower Maid Relationship Specialty Start Date End Date Tyrese Torres, DO [address] [place] [address] PCP - General Family Medicine 12/26/15 Shower Maid Relationship Specialty Start Date End Date Tyerse Torres, DO [address] [place] [address] PCP - General Family Medicine 12/26/15 Shower Maid Relationship Specialty Start Date End Date Tyrese Torres, DO [address] [place] [address] PCP - General Family Medicine 12/26/15 Shower Maid Relationship Specialty Start Date End Date Tyrese Torres, DO [address] [place] [address] PCP - General Family Medicine 12/26/15 Shower Maid Relationship Specialty Start Date End Date Tyrese Torres, DO [address] [place] [address] PCP - General Family Medicine 12/26/15 Team Status: Active Member Role Status Dates Dr. Tyrese Torres , DO Family Provider Active Dr. Tyrese Torres , DO Primary Care Provider Active Team Status: Inactive Member Role Status Dates Dr. Tyrese Torres , Primary Care Provider Active Silvia Vu CNM Attending Provider Active Shower Maid Relationship Specialty Start Date End Date Tyrese Torres, DO [address] [place] [address] PCP - General Family Medicine 12/26/15 Shower Maid Relationship Specialty Start Date End Date Tyrese Torres, DO [address] [place] [address] PCP - General Family Medicine 12/26/15 Team Status: Inactive Member Role Status Dates Dr. Tyrese Torres , DO Primary Care Provider Active Dr. Earl Vences MD Attending Provider Active Team Status: Inactive Member Role Status Dates Dr. Tyrese Torers , DO Primary Care Provider Active Dr. Renee Avina MD Admit Provider, Atten ding Provider Active Shower Maid Relationship Specialty Start Date End Date Tyrese Torres DO [address] [place] [address] PCP - General Family Medicine 12/26/15 Shower Maid Relationship Specialty Start Date End Date Tyrese Torres DO [address] [place] [address] PCP - General Family Medicine 12/26/15 Meme Godinez, 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VISOR [address] [place] [address] Sand Cutting Machine Operator Family Medicine 04/04/24 Luz Maria Warner, 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VISOR [address] [place] [address] Sand Cutting Machine Operator Family Medicine 04/04/24 Shower Maid Relationship Specialty Start Date End Date Tyrese Torres DO [address] [place] [address] PCP - General Family Medicine 12/26/15 Meme Godinez, 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VISOR [address] [place] [address] Sand Cutting Machine Operator Family Medicine 04/04/24 Luz Maria Warner, 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VISOR [address] [place] [address] Sand Cutting [facility] 04/04/24 Shower Maid Relationship Specialty Start Date End Date Tyrese Torres DO [address] [place] [address] PCP - General Family Medicine 12/26/15 Meme Godinez, 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 [address] [place], [place] [id number] Formerly [facility] 04/04/24 Luz Maria Warner APRN.[employer] [address] [place], [place] [id number] Formerly [facility] 04/04/24 Shower Maid Relationship Specialty Start Date End Date Tyrese Torres DO [address] [place], [place] [id number] PCP - General Family Medicine 12/26/15 Meme Godinez APRN.[employer] [address] [place], [place] [id number] Formerly [facility] 04/04/24 Luz Maria Warner APRN.[employer] [address] [place], [place] [address] Formerly [facility] 04/04/24 <item> Privacy Markings (unrecogniz ed section and content) Section Author: Jennifer Cohen PROHIBITION ON REDISCLOSURE OF CONFIDENTIAL INFORMATION This notice accompanies a disclosure of information concerning a client made to you with the consent of such client. Goals (unrecognized section and content) Goals may be documented in a n alternate sectionGoals may be documented in an alternate section FOR RECORDS PERTAINING TO PATIENTS WHO ARE OR HAVE BEEN ENROLLED IN A CHEMICAL DEPENDENCY/SUBSTANCEABUSE PROGRAM, SOME INFORMATION MAY BE OMITTED. This clinical summary was aggregated from multiple sources. Caution should be exercised in using it in the provision of clinical care. This summary normalizes information from multiple sources, and as a consequence, information in this document may materially change the coding, format and clinical context of patient data. In addition, data may be omitted in some cases. CLINICAL DECISIONS SHOULD BE BASED ON THE PRIMARY CLINICAL RECORDS. [facility]. provides no warranty or guarantee of the accuracy or completeness of information in this document.
[2025-02-21 06:53] LABS: AST(SGOT) 23 U/L (<=31); Alanine Aminotransfer ALT/SGPT 29 U/L (<=34); Albumin, Serum 4.3 g/dL (3.5-5.0); Alkaline Phosphatase 57 U/L (35-104); Anion Gap 15 (5-15); BUN 16 mg/dL (4-19); BUN/Creat Ratio 19.6 RATIO (10-20); Calcium,Total 9.5 mg/dL (7.6-11.0); Carbon Dioxide 19.3 mmol/L (21.0-32.0); Chloride 104 mmol/L (98-108); Estimated Creatinine Clearance 114.70 ml/min (50-250); Globulin 3.1 g/dL (2.2-4.2); Glucose 157 mg/dL (70-99); Lipase 22 U/L (13-75); Potassium 3.7 mmol/L (3.3-5.1)
[2025-02-21 07:00] LABS: Red Blood Cells-Urine 0-5 SEEN /hpf (0-5); Squamous Epithelial Cells - UA 10-25 SEEN /hpf (5-10)
[2025-02-21 08:01] VITALS: BP 138/88; PULSE 82; RESP 16; O2SAT 98
[2025-02-21 09:16] VITALS: BP 136/88; PULSE 84; RESP 16; TEMP 37; O2SAT 98
== END 2025-02-21 09:18 | disposition home or self-care (01) ==
PROVIDERS: Emergency Provider Emergency Medicine; PCP Student in an Organized Health Care Education/Training Program; Visit Provider Emergency Medicine
DX: R10.31 Right lower quadrant pain (principal); R11.2 Nausea with vomiting, unspecified
CPT/HCPCS: 74177; 80053; 81001; 81025; 83605; 83690; 85025; 96361; 96374; 96375; 96376; 99283; Q9967; A4216; J2405

== ENCOUNTER 2025-03-30 12:26 | Emergency (ER) | payer OTHER, SELFPAY ==
[2025-03-30 12:26] VITALS: BP 148/101; PULSE 98; RESP 16; TEMP 36.6; O2SAT 100; BMI 32.6
--- NOTE | 2025-03-30 12:32 | ED.RN ---
called for EKG
--- NOTE | 2025-03-30 12:52 | EKG12_ITS ---
Test Reason : CHEST PAIN Blood Pressure : */* mmHG Vent. Rate : 113 BPM Atrial Rate : 113 BPM P-R Int : 152 ms QRS Dur : 78 ms QT Int : 326 ms P-R-T Axes : 74 59 59 degrees QTcB Int : 447 ms Sinus tachycardia Otherwise normal ECG Confirmed by YORDY CISSE, MAC ([id number]), subeditor TORI PEÑA ([id number]) on 04/01/2025 9:04:32 AM Referred By: Confirmed By: MAC SCALES MD
[2025-03-30] MEDS: 0.9% Normal Saline (1000mL) 1,000 ML 999 ML IV (12:59)
[2025-03-30 13:00] VITALS: BP 115/82; PULSE 93; RESP 12; O2SAT 98
[2025-03-30 13:16] LABS: Hematocrit 39.7 % (37-47); Hemoglobin 13.8 g/dL (12.0-15.0); Immature Granulocytes Count 0.020 X10^3/uL (0.0-0.0); Mean Corp Hgb Conc 34.8 g/dL (32-36); Mean Corpuscular Volume 89.8 fL (81-99); Mean Platelet Vol. 10.8 fl (6.2-12.0); NRBC Flagged by Analyzer 0 % (0-5); Platelet Count 186 K/mm3 (150-450); RBC Distribution Width CV 12.2 % (11.6-14.6); RBC Distribution Width SD 40.1 fl (35.1-43.9); Red Blood Count 4.42 M/mm3 (4.2-5.4); White Blood Count 5.2 K/mm3 (4.4-11.0)
[2025-03-30 13:31] LABS: D-Dimer Quantitative (DVT/PE) < 0.27 FEU/ug/m (0.27-0.49)
--- NOTE | 2025-03-30 13:36 | RAD_ITS ---
PROCEDURE: CHEST PA AND LATERAL 03/30/2025 REASON FOR EXAM: CP TECHNIQUE: Procedure Code: RADCXR Modality: DX Procedure: CHEST PA AND LATERAL COMPARISON: None available. FINDINGS: Hardware: None Heart: The heart size is normal. Mediastinum: The mediastinal contour is unremarkable. Lungs: The lungs are clear. No pneumothorax or pleural effusion. Bones: The bones are unremarkable. RAD/Chest PA and Lateral IMPRESSION: NO ACUTE FINDINGS. Reading [facility]
[2025-03-30 13:46] LABS: Anion Gap 11 (5-15); BUN 11 mg/dL (4-19); BUN/Creat Ratio 14.1 RATIO (10-20); Calcium,Total 9.3 mg/dL (7.6-11.0); Carbon Dioxide 23.2 mmol/L (21.0-32.0); Chloride 103 mmol/L (98-108); Estimated Creatinine Clearance 120.38 ml/min (50-250); Glucose 101 mg/dL (70-99); Potassium 4.0 mmol/L (3.3-5.1); Troponin T High Sensitivity 6 ng/L (<=14)
[2025-03-30 14:00] VITALS: BP 124/81; PULSE 66; RESP 14; O2SAT 98
[2025-03-30 14:14] VITALS: BP 117/84; PULSE 72; RESP 14; TEMP 37; O2SAT 100
--- OUTSIDE RECORDS SUMMARY | 2025-03-30 14:27 | XMS RPT_ITS | CCD ---
Author Organization [facility] Care Team Providers Care Business Intelligence Administrator Name Role Phone Skip Rosado Unavailable Unavailable Skip Rosado Unavailable Unavailable Tyrese Torres Unavailable Unavailable Tyrese Torres DO Primary Care Provider Tyrese Torres Unavailable Leodan Carreon Unavailable Unavailable Tyrese Torres DO Primary Care Provider Tyrese Torres DO Primary Care Provider Ms. Leodan Carreon Attending Unavailable Dr. Tyrese Torres Primary Care Unava ilable Ms. Leodan Carreon Attending Unavailable Dr. Tyrese Torres Primary Care Unava ilable Tyrese Torres DO Primary Care Provider Tyrese Torres DO Primary Care Provider Herbert BELT CLEANER.Meme CARTWRIGHT Unavailable Timmy BELT CLEANER.Luz Maria CARTWRIGHT Unavailable TYRESE TORRES Primary Care Unavailable TYRESE TORRES Primary Care Unavailable TENZIN CRUZ Referring Unavailable TYRESE TORRES Primary Care Unavailable Tyrese Torres Primary Care Unavailable Jing Ramirez Attending Unavailable Allergies Allergy Classification Reported Allergen(s) Allergy Type Date of Onset Reaction(s) Facility (20 sources) Seasonal allergy; Translations: [SEASONAL ALLERGIES] Propensity to adverse reactions 4 Other: See Comments [facility] Work Phone: Medications Current Medications Medication Drug [...] Comment on above: Take 1 capsule by [facility] twice daily for 10 days. Finish all [...] Comment on above: Take 1 tablet by [facility] once daily. cephalexin 500 mg oral capsule (7 sources) Cephalosporin Antibacterial Start: 11-21-19 End: 12-01-19 take 1 capsule by mouth twice daily cephALEXin (KEFLEX) 500 mg capsule Indications: Strep throat Take 1 capsule by mouth twice daily for 10 days. 20 capsule 0 11/20/2021 11/30/2021 Active Comment on above: Take 1 capsule by [facility] twice daily for 10 days. cetirizine hydrochloride [...] capsule (1 source) Tetracycline-class Drug Start: 04-22-20 24 End: 04-27-20 24 take 1 capsule by mouth twice daily doxycycline monohydrate (MONODOX) 100 mg capsule Indications: Subacute cough Take 1 capsule by mouth two times a day for 5 days. 10 capsule 04/22/2024 04/27/2024 Active fluticasone propionate 0.05 mg/actuat metered dose nasal spray (20 sources) Corticosteroid Start: 11-08-19 20 take 2 spray(s) by mouth once daily [...] Ordered: 05-Nov-2021 Marti Watkins Generic Substitution Allowed Vit,Knuc75-Hkyj-Cipj c (Prenatabs Fa) 1 TABLET tablet (3 sources) Start: 05-04-19 15 take 1 tablet by mouth once daily Vit,Bnvw12-Blwh-Jpch c (Prenatabs Fa) 1 TABLET tablet Active 1 TABLET PO DAILY May 04, 2014 12:00am Completed/Discontinued Medications Medication Drug Class(es) Dates Sig (Normalized) Sig (Original) [id number] 200 actuat albuterol 0.09 mg/actuat metered dose [...] by mouth once daily. lactobacillus rhamnosus gg [id number] unt oral capsule (16 sources) End: 05-13-2022 take 1 capsule by mouth once daily lactobacillus rhamnosus (CULTURELLE) 10 billion cell capsule Take 1 capsule by mouth once daily. 0 05/13/2022 Discontinued (Course of therapy completed) Comment on above: Take 1 capsule by [facility] once daily. LORazepam 0.5 mg oral tablet [...] in both e yes twice daily. vit no.667-elrmm-fla 400 mcg- 25 mg chew (1 source) Start: 06-04-2019 End: 10-15-2021 vit no.060-xuklp-etr 400 mcg- 25 mg chew prental multivitamin [...] Comment on above: Take 1 tablet by [facility] once daily. Problems Active Problems Problem Classification Problem Date Documented Date Episodic/Chronic Abdominal pain (1 source) Unspecified abdominal pain; Translations: [Unspecified abdominal pain] Onset: 03-03-2025 Episodic Acute bronchitis (1 source) Acute bronchitis, unspecified; [...] Chronic Other conditions (5 sources) tachycardia; Translations: [[place] affected by abnormality in (intrauterine) heart rate [...] Translations: [Active labor] 03-24-2020 Unclassified (1 source) Acute cough; Translations: [Acute [...] Test Name Value Interpretation Reference Range Facility Abdomen/Pelvis W IV Cont ONL Yon 02-21-2025 Abdomen/Pelvis W IV Cont ONLY [facility] [address] [place], [place] [id number] Abdomen/Pelvis W IV Cont ONLY MR#: [id number] Acct: [id number] Name: KRISTA MAST Rep #: [id number] : 1990 F 34 From: Everett Wu MD PCP: Dr. Tyrese Torres, Status: REG ER Study: Abdomen/Pelvis W IV Cont ONLY Date of Exam: Exam# [id number] Ordering Dr: Jing Ramirez DO PROCEDURE: ABDOMEN/PELVIS W IV CONT ONLY 02/21/2025 REASON FOR EXAM: RLQ ABD PAIN TECHNIQUE: Procedure Code: [id number] Modality: CT Procedure: ABDOMEN/PELVIS W IV CONT ONLY Coronal and Sagittal reconstruction series were provided. CONTRAST: 96 cc Isovue 370 One or more dose reduction techniques were used (e.g., Automated exposure control, adjustment of the mA and/or kV according to patient size, use of iterative reconstruction technique. RADIATION DOSE SUMMARY: DLP: 810 mGycm COMPARISON: None FINDINGS: Lung bases: Clear Liver: Unremarkable Gallbladder: Unremarkable Spleen: Remarkable Pancreas: Unremarkable Adrenals: Unremarkable Kidneys: Right kidney shows moderate hydronephrosis. There is a 0.3 cm stone in the distal right ureter at the bladder base, image number 100/125. The left kidney shows a 0.2 cm nonobstructing stone in the midpole. There is no hydronephrosis on the left. Bladder: Unremarkable Reproductive Organs: Unremarkable Bowel: Gas and stool is noted throughout the colon. The small bowel loops are not distended. Appendix: Within normal limits Lymph nodes: There is no pathologic adenopathy by size criteria. Vasculature: There is no visible atherosclerosis. Peritoneum / Retroperitoneum: There is no free air or free fluid. Bones: There is no acute bony abnormality. CT/Abdomen/Pelvis W IV Cont ONLY IMPRESSION: Right kidney shows moderate hydronephrosis. There is a 0.3 cm stone in the distal right ureter at the bladder base, image number 100/125. The left kidney shows a 0.2 cm nonobstructing stone in the midpole. Reading Location: [facility] CC: Dr. Jing Ramirez, DO; Dr. Tyrese Torres, DO [employer] Operator: Signed Normal [facility] CBC W/Diff, Automatedon 10- Absolute Lymph 1.82 X10 3/uL Normal 0.83-4.51 [facility] Comment on above: Performed By: #### L 500.4050, L501.2450, L100.0100, L503.6005 #### [facility] [address] [place], [address] Absolute Neut 4.4 X10 3/uL Normal 2.0-7.7 [facility] Comment on above: Performed By: #### L 500.4050, L501.2450, L100.0100, L503.6005 #### [facility] [address] [place], [address] Basophils/100 WBC (Bld) 0.4 % Normal 0-1 [facility] Comment on above: Performed By: #### L 500.4050, L501.2450, L100.0100, L503.6005 #### [facility] [address] [place], [address] Eosinophils/100 WBC (Bld) 1.1 % Normal 0-5 [facility] Comment on above: Performed By: #### L 500.4050, L501.2450, L100.0100, L503.6005 #### [facility] [address] [place], [address] Erythrocyte distribution width (RBC) [Ratio] 12.3 % Normal 11.6-14.6 [facility] Comment on above: Performed By: #### L 500.4050, L501.2450, L100.0100, L503.6005 #### [facility] [address] [place], [address] Hematocrit (Bld) [Volume fraction] 40.5 % Normal 37-47 [facility] Comment on above: Performed By: #### L 500.4050, L501.2450, L100.0100, L503.6005 #### [facility] [address] [place], [address] Hemoglobin (Bld) [Mass/Vol] 14.0 g/dL Normal 12.0-15.0 [facility] Comment on above: Performed By: #### L 500.4050, L501.2450, L100.0100, L503.6005 #### [facility] [address] [place], [address] IG% 0.300 Normal 0.0-0.9 [facility] Comment on above: Result Comment: IG% - Immature Granulocytes (promyelocytes, myelocytes and metamyelocytes) > 1% indicates that a LEFT SHIFT is Present. Performed By: #### L 500.4050, L501.2450, L100.0100, L503.6005 #### [facility] [address] [place], [address] Lymphocytes/100 WBC (Bld) 25.9 % Normal 19-41 [facility] Comment on above: Performed By: #### L 500.4050, L501.2450, L100.0100, L503.6005 #### [facility] [address] [place], [address] MCH (RBC) [Entitic mass] 31.4 pg Normal 27.0-32.0 [facility] Comment on above: Performed By: #### L 500.4050, L501.2450, L100.0100, L503.6005 #### [facility] [address] [place], [address] MCHC (RBC) [Mass/Vol] 34.6 g/dL Normal 32-36 [facility] Comment on above: Performed By: #### L 500.4050, L501.2450, L100.0100, L503.6005 #### [facility] [address] [place], [address] MCV (RBC) [Entitic vol] 90.8 fL Normal 81-99 [facility] Comment on above: Performed By: #### L 500.4050, L501.2450, L100.0100, L503.6005 #### [facility] [address] [place], [address] Monocytes/100 WBC (Bld) 9.3 % Normal 0-10 [facility] Comment on above: Performed By: #### L 500.4050, L501.2450, L100.0100, L503.6005 #### [facility] [address] [place], [address] Neutrophils/100 WBC (Bld) 63.0 % Normal 47-70 [facility] Comment on above: Performed By: #### L 500.4050, L501.2450, L100.0100, L503.6005 #### [facility] [address] [place], [address] Nucleated RBC (Bld) [#/Vol] 0 10*3/uL Normal 0-5 [facility] Comment on above: Performed By: #### L 500.4050, L501.2450, L100.0100, L503.6005 #### [facility] [address] [place], [address] Platelet mean volume (Bld) [Entitic vol] 11.0 fL Normal 6.2-12.0 [facility] Comment on above: Performed By: #### L 500.4050, L501.2450, L100.0100, L503.6005 #### [facility] [address] [place], [address] Platelets (Bld) [#/Vol] 210 10*3/uL Normal 150-450 [facility] Comment on above: Performed By: #### L 500.4050, L501.2450, L100.0100, L503.6005 #### [facility] [address] [place], [address] RBC (Bld) [#/Vol] 4.46 10*6/uL Normal 4.2-5.4 [facility] Comment on above: Performed By: #### L 500.4050, L501.2450, L100.0100, L503.6005 #### [facility] [address] [place], [address] RDW SD 40.7 fl Normal 35.1-43.9 [facility] Comment on above: Performed By: #### L 500.4050, L501.2450, L100.0100, L503.6005 #### [facility] [address] [place], [address] WBC (Bld) [#/Vol] 7.0 10*3/uL Normal 4.4-11.0 [facility] Comment on above: Performed By: #### L 500.4050, L501.2450, L100.0100, L503.6005 #### [facility] [address] [place], [address] Comprehensive Metabolic [facility] ilon 02-21-2025 Albumin [Mass/Vol] 4.3 g/dL Normal 3.5-5.0 [facility] Comment on above: Performed By: #### L 500.4050, L501.2450, L100.0100, L503.6005 #### [facility] [address] [place], [address] Albumin/Globulin [Mass ratio] 1.4 {ratio} Normal 0.9-2.4 [facility] Comment on above: Performed By: #### L 500.4050, L501.2450, L100.0100, L503.6005 #### [facility] [address] [place], [address] ALK PHOS 57 U/L Normal 35-104 [facility] Comment on above: Performed By: #### L 500.4050, L501.2450, L100.0100, L503.6005 #### [facility] [address] [place], [address] ALT [Catalytic activity/Vol] 29 U/L Normal <=34 [facility] Comment on above: Performed By: #### L 500.4050, L501.2450, L100.0100, L503.6005 #### [facility] [address] [place], [address] AST [Catalytic activity/Vol] 23 U/L Normal <=31 [facility] Comment on above: Performed By: #### L 500.4050, L501.2450, L100.0100, L503.6005 #### [facility] [address] [place], [address] Bilirubin [Mass/Vol] 1.36 mg/dL High 0.00-1.30 [facility] Comment on above: Performed By: #### L 500.4050, L501.2450, L100.0100, L503.6005 #### [facility] [address] [place], [address] BUN/CRE 19.6 RATIO Normal 10-20 [facility] Comment on above: Performed By: #### L 500.4050, L501.2450, L100.0100, L503.6005 #### [facility] [address] [place], [address] Calcium [Mass/Vol] 9.5 mg/dL Normal 7.6-11.0 [facility] Comment on above: Performed By: #### L 500.4050, L501.2450, L100.0100, L503.6005 #### [facility] [address] [place], [address] Chloride [Moles/Vol] 104 mmol/L Normal 98-108 [facility] Comment on above: Performed By: #### L 500.4050, L501.2450, L100.0100, L503.6005 #### [facility] [address] [place], [address] CO2 [Moles/Vol] 19.3 mmol/L Low 21.0-32.0 [facility] Comment on above: Performed By: #### L 500.4050, L501.2450, L100.0100, L503.6005 #### [facility] [address] [place], [address] Creatinine [Mass/Vol] 0.82 mg/dL Normal 0.70-1.20 [facility] Comment on above: Performed By: #### L 500.4050, L501.2450, L100.0100, L503.6005 #### [facility] [address] [place], [address] ECRCL 114.70 ml/min Normal 50-250 [facility] Comment on above: Performed By: #### L 500.4050, L501.2450, L100.0100, L503.6005 #### [facility] [address] [place], [address] GAP 15 Normal 5-15 [facility] Comment on above: Performed By: #### L 500.4050, L501.2450, L100.0100, L503.6005 #### [facility] [address] [place], [address] GFR/1.73 sq M.predicted among non-blacks MDRD (S/P/Bld) [Vol rate/Area] 96 mL/min/{1.73_m2} Normal >60 [facility] Comment on above: Result Comment: mL/m in/1.73m2 CKD-EPI Creatinine Equation (2020) Performed By: #### L 500.4050, L501.2450, L100.0100, L503.6005 #### [facility] [address] [place], [address] Globulin (S) [Mass/Vol] 3.1 g/dL Normal 2.2-4.2 [facility] Comment on above: Performed By: #### L 500.4050, L501.2450, L100.0100, L503.6005 #### [facility] [address] [place], [address] Glucose [Mass/Vol] 157 mg/dL High 70-99 [facility] Comment on above: Performed By: #### L 500.4050, L501.2450, L100.0100, L503.6005 #### [facility] [address] [place], [address] Potassium [Moles/Vol] 3.7 mmol/L Normal 3.3-5.1 [facility] Comment on above: Performed By: #### L 500.4050, L501.2450, L100.0100, L503.6005 #### [facility] [address] [place], [address] Sodium [Moles/Vol] 138 mmol/L Normal 133-145 [facility] Comment on above: Performed By: #### L 500.4050, L501.2450, L100.0100, L503.6005 #### [facility] [address] [place], [address] T PROT 7.3 g/dL Normal 5.9-8.4 [facility] Comment on above: Performed By: #### L 500.4050, L501.2450, L100.0100, L503.6005 #### [facility] [address] [place], [address] Urea nitrogen [Mass/Vol] 16 mg/dL Normal 4-19 [facility] Comment on above: Performed By: #### L 500.4050, L501.2450, L100.0100, L503.6005 #### [facility] [address] [place], [address] Emergency Department Summary on 02-21-2025 Emergency Department Summary [facility] Medical Records Department [address] [place] [address] Emergency Department Summary 02/21/25 MR#: [id number] Acct: [id number] Name: KRISTA MAST Rep #: [id number] : 1990 34 From: Jing Ramirez DO PCP: Dr. Tyrese Torres, DO Status:REG ER Location: ED HPI HPI - GI History of Present Illness Chief Complaint: Abd Pain Informant: patient Narrative Narrative: Patient is a 34-year-old female no significant past medical history presenting with sudden onset of severe right lower quad abdominal pain that woke her up from sleep. States he felt fine when she went to bed last night. States that about 2 hours prior to arrival. Describes the pain as constant, sharp and ripping in sensation. Denies any radiation of the pain. Has associated nausea and vomiting secondary to the pain. Denies any recent GI symptoms prior to this was her normal state of health. Denies urinary symptoms. Denies concern for . Her last menstrual cycle was 3 to 4 weeks ago. Denies any show any abdominal surgeries. Denies taking for pain prior to arrival. No other complaints or concerns at this time. States she is never felt dizzy like this before. Chart review does show she has a history of kidney stones. [facility] Medical History Kidney calculus Care and examination of lactating mother (spontaneous vaginal delivery) macrosomia depression Anxiety 38 weeks gestation of Home Medications ???Medication ???Instructions ???Recorded ???Last Taken ???Type NK 02/21/25 Unknown History Allergy/AdvReac Type Severity Reaction Status Date / Time No Known Allergies Allergy Verified 06/19/22 09:32 Social History Smoking Status: Never smoker ROS ROS ED Constitutional Constitutional ED: Denies chills or fever(s) Respiratory/Chest Respiratory/Chest: Denies cough Gastrointestinal Gastrointestinal: Reports abdominal pain and nausea; Denies constipation or diarrhea Genitourinary Genitourinary ED: Denies dysuria, hematuria or urinary frequency Musculoskeletal Musculoskeletal: Denies arthralgias, back pain or myalgias Neurologic Neurologic: Denies paresthesias or weakness Hematologic/Lymphatic Hematologic/Lymphatic : Denies easy bleeding or easy bruising EXAM Physical Exam Const Vital Signs: 02/21/25 06:03 02/21/25 08:01 Temperature 97.6 F L Temperature Source Oral Pulse Rate 88 82 Respiratory Rate 20 H 16 Blood Pressure 148/95 H 138/88 H Blood Pressure Mean 112 104 Pulse Ox 98 98 Oxygen Delivery Method Room Air Positive well nourished and well developed Constitutional Narrative: Uncomfortable appearing, pacing around the room General Appearance ED: well developed HEENT Reports moist mucous membranes Neck supple Resp normal respiratory effort and clear to auscultation bilaterally Cardio regular rate and regular rhythm GI non-distended GI Narrative: Tenderness to palpation of the right lower/right mid abdomen. No overlying skin changes present. No mass appreciated. Inspection: Negative for abdominal distention Auscultation: normoactive bowel sounds Palpation: soft and tender RLQ; Negative for guarding, rigid, hernia or mass Back/Spine no CVA tenderness Extremity full ROM Neuro moves all extremities Sensorium / Orientation: alert, oriented to person, oriented to place and oriented to time Motor Exam: Negative for general weakness Psych mental status grossly normal and thought process normal Skin no wounds Lesions: no lesions Rashes: no rashes MDM MDM MDM Narrative Medical decision making narrative: Patient having a rather sudden onset of severe right sided abdominal pain. Differential includes not limited to ovarian torsion, ectopic , ruptured ovarian cyst, renal colic, cholecystitis and appendicitis. Patient ordered IV morphine, Zofran and fluids for symptom control. Will obtain CT of the abdomen and pelvis as well as lab work and urinalysis. On repeat evaluation patient's pain is improving however medication is wearing off and does request more pain medication. Given additional 4 mg of morphine and Toradol. Lab including CBC, lactate, CMP largely normal. Minimally elevated total bilirubin 1.36 which is nonspecific. Urinalysis does show contamination as well as 10-25 white blood cells. This is quite nonspecific. CT is pending however on my evaluation there appears to be a small stone at the right UVJ. This to be consistent with her presentation. Will be signed out to oncoming physician pending CT result and final disposition. Anticipate if the stone is small can be discharged home with pain control. Lab Data Attestatio (more content not included)... Normal [facility] Lactic Acidon 02-21-2025 Lactate [Moles/Vol] 1.8 mmol/L Normal 0.0-2.0 [facility] Comment on above: Order Comment: Y Performed By: #### L 500.4050, L501.2450, L100.0100, L503.6005 #### [facility] [address] [place], [address] Lipaseon 02-21-2025 Lipase [Catalytic activity/Vol] 22 U/L Normal 13-75 [facility] Comment on above: Result Comment: Peter stubbs note: LIPASE revised reference range effective 22. New Lipase methodology. Expected to produce lower values than the previous assay method. NEW Reference Range: 13 - 75 U/L Performed By: #### L 500.4050, L501.2450, L100.0100, L503.6005 #### [facility] [address] [place], [address] ,Urineon 02-21-2025 Beta HCG ( test) Ql (U) Negative Normal [facility] Comment on above: Result Comment: Very dilute urine specimens, as indicated by a low specific gravity, may not contain traveling representative levels of hCG. If is still suspected, a first morning urine specimen should be collected 48 hours later and tested. Performed By: #### L 400.0001, L400.7600 #### [facility] [address] [place], [address] Urinalysis, Completeon 02-21 BACTERIA 1+ /hpf Normal None Seen [facility] Comment on above: Order Comment: CLEAN CATCH Performed By: #### L 400.0001, L400.7600 #### [facility] [address] [place], [address] EPI,SQUAMOUS 10-25 SEEN Normal 5-10 [facility] Comment on above: Order Comment: CLEAN CATCH Performed By: #### L 400.0001, L400.7600 #### [facility] [address] [place], [place], [id number] RBC 0-5 SEEN Normal 0-5 [facility] Comment on above: Order Comment: CLEAN CATCH Performed By: #### L 400.0001, L400.7600 #### [facility] Laboratory [address] [place], [address] WBC 10-25 SEEN Normal 0-5 [facility] Comment on above: Order Comment: CLEAN CATCH Performed By: #### L 400.0001, L400.7600 #### [facility] [address] [place], [address] Mucus Ql (Urine sed) 0 SEEN Normal [facility] Comment on above: Order Comment: CLEAN CATCH Performed By: #### L 400.0001, L400.7600 #### [facility] [address] [place], [address] CNOVon 04-22-2024 CNOV Office Visit (UCWSTR ) KEZIAKRISTA ([id number]) 1990 F Date Time Provider Department 04/22/24 1:30 PM HOME POE [facility] During your visit today, we recorded the [...] eyes Date Reviewed: 04/22/2024 Reviewed by: Suzette Valles MA - Fully [...] history of (more content not included)... Normal [facility] CNOVon 04-13-2024 CNOV Office Visit (UCWSTR ) KRISTA MAST ([id number]) 1990 F Date Time Provider Department 04/13/24 3:00 PM TENZIN CRUZ WSTR During your visit today, we recorded the following information about you: Temperature Pulse Respiration Blood pressure 98.1 degrees 92/minute 16/minute 110/68 Weight 97.3 kg Tenzin Cruz PA 04/13/2024 3:21 PM Signed This note was created using Right [employer] Interact[employer]. Subjective Krista Mast is a 33 year [...] pneumonia. Patient has not really tried anything [id number] for symptoms. No other complaint. PAST MEDICAL [...] Visit: Nasal (more content not included)... Normal [facility] Marco 04-13-2024 CNPN Telephone (UCWSTR) KRISTA MAST ([id number]) 1990 F Date Time Provider Department 04/13/24 TENZIN CRUZ [facility] During your visit today, we recorded the [...] Status:Closed by SUZETTE VALLES on 04/14/24 Normal [facility] XR CHEST 2V FRONTAL/LATon XR CHEST 2V [...] tissues: Unremarkable. IMPRESSION: No acute radiographic abnormality. Hydroelectric Station Operator: [facility] Transcribe Date/Time: Apr 13 2024 3:17P Dictated by : TITUS SEBASTIAN MD This examination was interpreted and the report reviewed and electronically signed by: TITUS SEBASTIAN MD on Apr 13 2024 3:17PM EST [id number] Normal [facility] XR Chest PA and Lateralon Radiology Study observation (narrative) [facility] IMPRESSION: No acute radiographic abnormality. Hydroelectric Station Operator: [facility] Transcribe Date/Time: Apr 13 2024 3:17P Dictated [...] soft tissues: Unremarkable. DIVISION OF RADIOLOGY Provider, [facility] - 04/13/2024 * * *Final Report* * [...] Unremarkable. IMPRESSION IMPRESSION: No acute radiographic abnormality. Hydroelectric Station Operator: [facility] Transcribe Date/Time: Apr 13 2024 3:17P Dictated by : TITUS SEBASTIAN MD This examination was interpreted and the report reviewed and electronically signed by: TITUS SEBASTIAN MD on Apr 13 2024 3:17PM EST [facility] XR Chest PA and LateralOrder ed By: Ccf Provider on 04-13-2024 [facility] Absolute lymphocyte countOrd ered By: Louisa Avina on 06-19-2022 Lymphocytes Auto (Unsp spec) [#/Vol] 1.21 10*3/uL 0.83-4.51 [facility] Basophil percentageOrdered B y: Louisa Avina on 06-19-2022 Basophils/100 WBC (Bld) 0.2 % 0-1 [facility] Eosinophils/100 WBC (Bld) 0.2 % 0-5 [facility] Neutrophils (Bld) [#/Vol] 10.1 10*3/uL 2.0-7.7 [facility] Neutrophils/100 WBC (Bld) 82.0 % 47-70 [facility] WBC (Bld) [#/Vol] 12.3 10*3/uL 4.4-11.0 [facility] Blood erythrocytes count (nu mber/volume)Ordered By: Louisa Mai on 06-19-2022 RBC (Bld) [#/Vol] 4.05 10*6/uL 4.2-5.4 [facility] Blood hemoglobin measurement (mass/volume)Ordered By: Louisa Mai on 06-19-2022 Hemoglobin (Bld) [Mass/Vol] 12.4 g/dL 12.0-15.0 [facility] Blood lymphocytes/100 leukoc ytesOrdered By: Louisa Avina on 06-19-2022 Lymphocytes/100 WBC (Bld) 9.8 % 19-41 [facility] Blood monocytes/100 leukocyt esOrdered By: Louisa Avina on 06-19-2022 Monocytes/100 WBC (Bld) 7.2 % 0-10 [facility] Blood platelet mean volumeOr dered By: Louisa Avina on 06-19-2022 Platelet mean volume (Bld) [Entitic vol] 11.0 fL 6.2-12.0 [facility] Determination of erythrocyte mean corpuscular volume (MCV)Ordered By: Louisa Avina on 06-19-2022 MCV (RBC) [Entitic vol] 93.1 fL 81-99 [facility] Hematocrit Auto (Bld) [Volum e fraction]Ordered By: Louisa Avina on 06-19-2022 Hematocrit (Bld) [Volume fraction] 37.7 % 37-47 [facility] - Hematology and Cell countsOrdered By: Louisa Avina on 06-19-2022 Erythrocyte distribution width (RBC) [Entitic vol] 45.0 fL 35.1-43.9 [facility] Erythrocyte distribution width (RBC) [Ratio] 13.2 % 11.6-14.6 [facility] Immature granulocytes/100 WBC (Bld) 0.600 % 0.0-0.9 [facility] Comment on above: IG% - Immature Granu locytes (promyelocytes, myelocytes and metamyelocytes) > 1% indicates that a LEFT SHIFT is Present. MCH (RBC) [Entitic mass] 30.6 pg 27.0-32.0 [facility] Nucleated RBC/100 WBC (Bld) [Ratio] 0 % 0-5 [facility] MCHC Auto (RBC) [Mass/Vol]Or dered By: Louisa Avina on 06-19-2022 MCHC (RBC) [Mass/Vol] 32.9 g/dL 32-36 [facility] No Panel InformationOrdered By: Dr. Vences on 06-19-2022 Vaginal Amniotic Fluid Detection Negative Negative [facility] Comment on above: Amniotic fluid not p resent indicates No Rupture of FetalMembranes at time of specimen collection. Platelets bldOrdered By: Louisa Avina on 06-19-2022 Platelets (Bld) [#/Vol] 184 10*3/uL 150-450 [facility] URINE OB DIP B/Oon 3 Glucose Ql (U) Negative Neg mg/dL [facility] Protein.monoclonal (U) [Mass/Vol] Negative Neg mg/dL [facility] BIOPHYSICAL PROFILE US WHIon 06-05-2022 [facility] URINE OB DIP B/Oon 3 Glucose Ql (U) Negative Neg mg/dL [facility] Protein.monoclonal (U) [Mass/Vol] Negative Neg mg/dL [facility] URINE OB DIP B/Oon 3 Glucose Ql (U) Negative Neg mg/dL [facility] Protein.monoclonal (U) [Mass/Vol] Negative Neg mg/dL [facility] URINE OB DIP B/Oon 3 Glucose Ql (U) Negative Neg mg/dL [facility] Protein.monoclonal (U) [Mass/Vol] Negative Neg mg/dL [facility] URINE OB DIP B/Oon 3 Glucose Ql (U) Negative Neg mg/dL [facility] Protein.monoclonal (U) [Mass/Vol] Negative Neg mg/dL [facility] URINE OB DIP B/Oon 2 Glucose Ql (U) Negative Neg mg/dL [facility] Protein.monoclonal (U) [Mass/Vol] Negative Neg mg/dL [facility] URINE OB DIP B/Oon 2 Glucose Ql (U) Negative Neg mg/dL [facility] Protein.monoclonal (U) [Mass/Vol] Negative Neg mg/dL [facility] Provider Note - ED v3on 10-1 Provider [...] for cough SIGNIFICANT EVENTS: No documented data. 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: Is : yes Is : no REVIEW [...] SIGNS: T PRBP SpO2O2(LPM) %FiO2 Method 04-Feb-2022 13:14:[id number]/ 80 97[facility]DM/ED COURSE: Differential Diagnosis: allergic rhinitis, influenza, [...] ill patient: no Electronic Signatures: Leodan Carreon ([employer]) (Signed 04-Feb-2022 13:35) Authored: ED Notes, HPI, PMH, ROS, PE, Results/Vital Signs, MDM/ED Course, Clinical Impression, Attestation, Chart Review, Scores Last Updated: 04-Feb-2022 13:35 by Leodan Carreon ([employer]) Normal [facility] OBSTETRIC ULTRASOUND WHIon 1 [facility] URINE OB DIP B/Oon 2 Glucose Ql (U) Negative Neg mg/dL [facility] Protein.monoclonal (U) [Mass/Vol] Negative Neg mg/dL [facility] URINE OB DIP B/Oon 2 Glucose Ql (U) Negative Neg mg/dL [facility] Protein.monoclonal (U) [Mass/Vol] Negative Neg mg/dL [facility] STREP A MOLECULAR (POC)on Procedural Control Valid [facility] Strep A (POCT) Positive Abnormal Negative [facility] GROUP A STREP SCREEN-CULTURE on 11-05-2021 GROUP A STREP SCREEN-CULTURE GASCR CALLED TO NATHALIE ZAMUDIO, 11/07/2021 12:43 PATIENT: KRISTA MAST LOCATION: [address]#: [id number] : 88 AGE: SEX: F ORDERED BY: LEODAN CARREON SOURCE: Throat/Pharynx COLLECTED: 11/05/21 11:40 ANTIBIOTICS AT SAMUEL.: RECEIVED : 11/05/21 22:49 SITE: R E S U L T S GROUP A STREP SCREEN-CULTURE FINAL 11/07/21 11:33 ISOLATE1 : Group A streptococcus 4+ Normal [facility] Comment on above: Performed By: #### G ASCR #### [facility] [address] [place] [address] Provider Note - ED v3on 10-26 Provider [...] 10 days SIGNIFICANT EVENTS: No documented data. 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: Is : no Is : no REVIEW [...] SIGNS: T PRBP SpO2O2(LPM) %FiO2 Method 05-Nov-2021 10:14:[id number] /80 98RA MDM MDM/ED COURSE: Differential Diagnosis: allergic rhinitis, pharyngitis, [...] Electronic Signatures for Addendum Section: Nathalie Zamudio ([facility]) (Signed Addendum 07-Nov-2021 12:44) Patient verified advised of positive Strep culture, patient to continue plan that was set with provider Greg Carreon CNP Electronic Signatures: Leodan Carreon ([employer]) (Signed 05-Nov-2021 10:54) Authored: ED Notes, HPI, PMH, ROS, PE, Results/Vital Signs, MDM/ED Course, Clinical Impression, Attestation, Chart Review, Scores Nathalie Zamudio ([employer]) (Signature Pending) Authored: PE, Attestation Last Updated: 07-Nov-2021 12:44 by Nathalie Zamudio ([facility]) [facility] Vital Signs Date Time Vital Sign Value Performing Clinician Facility 04-22-2024 11:51-0500 Body mass index (BMI) [Ratio] 33.32 kg/m2 Home Poe MD Work Phone: [facility] 04-22-2024 11:51-0500 Body temperature 97.81 [degF] Home Poe MD Work Phone: [facility] 04-22-2024 11:51-0500 Body weight 96.5 kg Home Poe MD Work Phone: [facility] 04-22-2024 11:51-0500 Diastolic blood pressure 72 mm[Hg] Home Poe MD Work Phone: [facility] 04-22-2024 11:51-0500 Heart rate 104 /min Home Poe MD Work Phone: [facility] 04-22-2024 11:51-0500 Respiratory rate 18 /min Home Poe MD Work Phone: [facility] 04-22-2024 11:51-0500 SaO2% (BldA) [Mass fraction] 98 % Home Poe MD Work Phone: [facility] 04-22-2024 11:51-0500 Systolic blood pressure 120 mm[Hg] Home Poe MD Work Phone: [facility] 04-13-2024 14:52-0500 Body mass index (BMI) [Ratio] 33.6 kg/m2 Krislyn Aberegg PA Work Phone: [facility] 04-13-2024 14:52-0500 Body temperature 98.1 [degF] Krislyn Aberegg PA Work Phone: [facility] 04-13-2024 14:52-0500 Body weight 97.3 kg Krislyn Aberegg PA Work Phone: [facility] 04-13-2024 14:52-0500 Diastolic blood pressure 68 mm[Hg] Krislyn Aberegg PA Work Phone: [facility] 04-13-2024 14:52-0500 Heart rate 92 /min Krislyn Aberegg PA Work Phone: [facility] 04-13-2024 14:52-0500 Respiratory rate 16 /min Krislyn Aberegg PA Work Phone: [facility] 04-13-2024 14:52-0500 SaO2% (BldA) [Mass fraction] 98 % Krislyn Aberegg PA Work Phone: [facility] 04-13-2024 14:52-0500 Systolic blood pressure 110 mm[Hg] Tenzin ADAM Work Phone: [facility] 06-20-2022 12:41-0500 Diastolic blood pressure 55 mm[Hg] [facility] 06-20-2022 12:41-0500 Heart rate 78 /min [facility] 06-20-2022 12:41-0500 Systolic blood pressure 107 mm[Hg] [facility] 06-20-2022 12:40-0500 Body temperature 98.1 [degF] [facility] 06-20-2022 12:40-0500 Respiratory rate 16 /min [facility] 06-20-2022 08:15-0500 SaO2% (BldA) [Mass fraction] 97 % [facility] 06-19-2022 09:19-0500 Body height 170.18 cm [facility] 06-19-2022 09:19-0500 Body mass index (BMI) [Ratio] 34.6 kg/m2 [facility] 06-19-2022 09:19-0500 Body weight 100.3 kg [facility] 06-19-2022 00:02-0500 Diastolic blood pressure 70 mm[Hg] [facility] 06-19-2022 00:02-0500 Heart rate 100 /min [facility] 06-19-2022 00:02-0500 Systolic blood pressure 114 mm[Hg] [facility] 06-18-2022 23:46-0500 Body temperature 98.7 [degF] [facility] 06-18-2022 23:35-0500 Body height 170.18 cm [facility] 06-18-2022 23:35-0500 Body mass index (BMI) [Ratio] 34.8 kg/m2 [facility] 06-18-2022 23:35-0500 Body weight 100.89 kg [facility] 06-12-2022 14:46-0500 Body weight 100.7 kg Renee Mai MD Work Phone: [facility] 06-12-2022 14:46-0500 Diastolic blood pressure 64 mm[Hg] Renee Mai MD Work Phone: [facility] 06-12-2022 14:46-0500 Systolic blood pressure 112 mm[Hg] Renee Mai MD Work Phone: [facility] 06-05-2022 13:54-0500 Body weight 99.34 kg Silvia Vu [employer]T CLE[employer]ER.CNM Work Phone: [facility] 06-05-2022 13:54-0500 Diastolic blood pressure 64 mm[Hg] Silvia Vu [employer] CLE[employer].CNM Work Phone: [facility] 06-05-2022 13:54-0500 Systolic blood pressure 116 mm[Hg] Silvia Vu [employer] CLE[employer]ER.CNM Work Phone: [facility] 06-04-2022 11:27-0500 Body weight 98.88 kg Earl Vences MD Work Phone: [facility] 06-04-2022 11:27-0500 Diastolic blood pressure 64 mm[Hg] Earl Vences MD Work Phone: [facility] 06-04-2022 11:27-0500 Systolic blood pressure 110 mm[Hg] Earl Vences MD Work Phone: [facility] 06-03-2022 12:59-0500 Body height 170.18 cm [facility] 06-03-2022 12:59-0500 Body mass index (BMI) [Ratio] 34.2 kg/m2 [facility] 06-03-2022 12:59-0500 Body weight 99.33 kg [facility] 06-03-2022 12:05-0500 Body temperature 99.4 [degF] [facility] 05-30-2022 10:42-0500 Body weight 98.88 kg Renee Mai MD Work Phone: [facility] 05-30-2022 10:42-0500 Diastolic blood pressure 64 mm[Hg] Renee Mai MD Work Phone: [facility] 05-30-2022 10:42-0500 Systolic blood pressure 104 mm[Hg] Renee Mai MD Work Phone: [facility] 05-13-2022 11:10-0500 Body weight 99.79 kg Silvia Vu [employer]T CLE[employer]ER.CNM Work Phone: [facility] 05-13-2022 11:10-0500 Diastolic blood pressure 64 mm[Hg] Silvia Vu [employer]T CLE[employer]ER.CNM Work Phone: [facility] 05-13-2022 11:10-0500 Systolic blood pressure 110 mm[Hg] Silvia Vu [employer]T CLE[employer]ER.CNM Work Phone: [facility] 04-26-2022 10:41-0500 Body weight 95.71 kg Renee Mai MD Work Phone: [facility] 04-26-2022 10:41-0500 Diastolic blood pressure 64 mm[Hg] Renee Mai MD Work Phone: [facility] 04-26-2022 10:41-0500 Systolic blood pressure 118 mm[Hg] Renee Mai MD Work Phone: [facility] 04-12-2022 14:37-0500 Body weight 94.8 kg Renee Mai MD Work Phone: [facility] 04-12-2022 14:37-0500 Diastolic blood pressure 70 mm[Hg] Renee Mai MD Work Phone: [facility] 04-12-2022 14:37-0500 Systolic blood pressure 116 mm[Hg] Renee Mai MD Work Phone: [facility] 02-28-2022 10:26-0400 Body weight 92.08 kg Renee Mai MD Work Phone: [facility] 02-28-2022 10:26-0400 Diastolic blood pressure 62 mm[Hg] Renee Mai MD Work Phone: [facility] 02-28-2022 10:26-0400 Systolic blood pressure 104 mm[Hg] Renee Mai MD Work Phone: [facility] 02-01-2022 14:31-0400 Body weight 90.27 kg Renee Mai MD Work Phone: [facility] 02-01-2022 14:31-0400 Diastolic blood pressure 62 mm[Hg] Renee Mai MD Work Phone: [facility] 02-01-2022 14:31-0400 Systolic blood pressure 110 mm[Hg] Renee Mai MD Work Phone: [facility] 12-27-2021 15:53-0400 Body weight 89.81 kg Renee Mai MD Work Phone: [facility] 12-27-2021 15:53-0400 Diastolic blood pressure 72 mm[Hg] Renee Mai MD Work Phone: [facility] 12-27-2021 15:53-0400 Systolic blood pressure 114 mm[Hg] Renee Mai MD Work Phone: [facility] 11-28-2021 15:17-0400 Body height 170.2 cm Renee Mai MD Work Phone: [facility] 11-28-2021 15:17-0400 Body weight 91.63 kg Renee Mai MD Work Phone: [facility] 11-28-2021 15:17-0400 Diastolic blood pressure 70 mm[Hg] Renee Mai MD Work Phone: [facility] 11-28-2021 15:17-0400 Systolic blood pressure 110 mm[Hg] Renee Mai MD Work Phone: [facility] 11-20-2021 11:30-0400 Body temperature 98.29 [degF] Pati Podlogar BEL[employer] CLE[employer]ER.[employer] Work Phone: [facility] 11-20-2021 11:30-0400 Body weight 91.35 kg Pati Podlogar BELT CLEANER.[employer] Work Phone: [facility] 11-20-2021 11:30-0400 Diastolic blood pressure 70 mm[Hg] Pati Podlogar [employer]T CLE[employer]ER.[employer] Work Phone: [facility] 11-20-2021 11:30-0400 Heart rate 89 /min Pati Podlogar [employer]T CLE[employer]ER.[employer] Work Phone: [facility] 11-20-2021 11:30-0400 Respiratory rate 18 /min Pati Podlogar BELT CLE[employer]ER.[employer] Work Phone: [facility] 11-20-2021 11:30-0400 SaO2% (BldA) [Mass fraction] 100 % Pati Podlogar BELT CLEANER.[employer] Work Phone: [facility] 11-20-2021 11:30-0400 Systolic blood pressure 112 mm[Hg] Pati Podlogar BELT CLEANER.[employer] Work Phone: [facility] 11-05-2021 12:14-0400 Body height 170 cm Tyrese Torres Other Phone: [facility] 11-05-2021 12:14-0400 Body temperature 97.7 [degF] Tyrese Torres Other Phone: [facility] 11-05-2021 12:14-0400 Diastolic blood pressure 80 mm[Hg] Tyrese Torres Other Phone: [facility] 11-05-2021 12:14-0400 Heart rate 103 /min Tyrese Torres Other Phone: [facility] 11-05-2021 12:14-0400 SaO2% (BldA) [Mass fraction] 98 % Tyrese Torres Other Phone: [facility] 11-05-2021 12:14-0400 Systolic blood pressure 113 mm[Hg] Tyrese Torres Other Phone: [facility] 10-15-2021 08:54-0400 Body temperature 99.1 [degF] 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 Work Phone: [facility] 10-15-2021 08:54-0400 Diastolic blood pressure 82 mm[Hg] 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 Work Phone: [facility] 10-15-2021 08:54-0400 Heart rate 119 /min 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 Work Phone: [facility] 10-15-2021 08:54-0400 Respiratory rate 18 /min 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 Work Phone: [facility] 10-15-2021 08:54-0400 SaO2% (BldA) [Mass fraction] 99 % Nomey Haagen BELT CLEANER.[employer] Work Phone: [facility] 10-15-2021 08:54-0400 Systolic blood pressure 112 mm[Hg] 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 Work Phone: [facility] Encounters Encounter Date Encounter Type Care Provider Facility Start: 02-21-2025 End: 02-21-2025 Emergency department patient visit Tyrese Torres Facility:[facility] Start: 04-22-2024 End: 04-22-2024 Office outpatient visit 25 minutes Home Poe MD Work Phone: [facility] Comment on above: Subacute cough (Prim sher Dx) Start: 04-22-2024 End: 04-22-2024 ambulatory TYRESE L TORRES Facility:[facility] Start: 04-13-2024 End: 04-13-2024 ambulatory TYRESE L TORRES Facility:[facility] Start: 04-13-2024 End: 04-13-2024 Patient encounter procedure Tenzin ADAM Work Phone: [facility] Comment on above: Acute cough (Primary Dx) Start: 04-13-2024 End: 04-13-2024 Subsequent hospital visit by physician [facility] Work Phone: Radiology Comment on above: Acute cough [R05.1] Start: 04-13-2024 End: 04-14-2024 Telephone encounter Tenzin ADAM Work Phone: [facility] Comment on above: Results Start: 06-21-2022 ambulatory Renee Mai MD Work Phone: OB/Gynecology Comment on above: Hemorrhoids Start: 06-19-2022 End: 06-20-2022 Evaluation and management of inpatient [facility] Start: 06-18-2022 End: 06-19-2022 ambulatory [facility] Work Phone: Start: 06-18-2022 End: 06-19-2022 Patient encounter procedure [facility], Outpatients Start: 06-12-2022 End: 06-12-2022 Patient encounter procedure Renee Mai MD Work Phone: OB/Gynecology Comment on above: Obesity during pregn curly (Primary Dx); H/O macrosomia in infant in prior , currently ; 37 weeks [...] unspecified fetus Start: 06-03-2022 End: 06-03-2022 ambulatory [facility] Work Phone: Start: 06-03-2022 End: 06-03-2022 Patient encounter procedure [facility] Start: 05-30-2022 End: 05-30-2022 Patient encounter [...] on above: History of macrosomi a in infant in prior , currently , third trimester (Primary Dx); 28 weeks gestation of Start: 02-28-2022 End: 02-28-2022 Patient encounter procedure Renee Mai MD Work Phone: OB/Gynecology Comment on above: Obesity during pregn curly (Primary Dx); H/O macrosomia in infant in prior , currently ; 22 weeks gestation of Start: 02-04-2022 End: 02-04-2022 Emergency department patient visit Ms. Leodan Carreon Facility:[id number] Start: 02-01-2022 End: 02-01-2022 Patient encounter procedure [...] Tyrese Oleary son DO Work Phone: [facility] Comment on above: Strep Start: 11-25-2021 ambulatory Tyrese Oleary son DO Work Phone: [facility] Comment on above: Continuous Strep Start: 11-22-2021 End: 11-22-2021 Nursing evaluation of patient and report Nurse Pnob [facility] Work Phone: OB/Gynecology Comment on above: H/O macrosomia in in daly in prior , currently (Primary Dx); Medication exposure during first trimester of ; History of depression; Family history of defect; Obesity during Start: 11-22-2021 Telephone encounter Shanthi davey MD Work Phone: OB/Gynecology Comment on above: strep throat on preg vania Start: 11-20-2021 End: 11-20-2021 Patient encounter procedure Pati Barnhartlogallen FRIAS.[employer] Work Phone: [facility] Comment on above: Strep throat (Primar y Dx) Start: 11-05-2021 End: 11-05-2021 Emergency department patient visit Leodan Carreon [facility] Start: 10-15-2021 End: 10-15-2021 Office outpatient visit 15 minutes Noemy Camarillo APRN.[employer] Work Phone: [facility] Comment on above: Strep throat (Primar y Dx); Sore throat Start: 06-11-2019 Patient encounter status Jeffrey Camarillo APRN.[employer] Work Phone: [facility] Work Phone: Start: 05-03-2017 End: 05-04-2017 Ambulatory [facility] Facility:are Procedures Date Procedure Procedure Detail Performing Clinician [...] 02-01-2022 Us preg uterus after 1st trimest 1/ gestation Renee Mai MD Work Phone: Start: 12-27-2021 URINE OB DIP B/O Renee Mai MD Work Phone: Start: 12-27-2021 Us nuchal translucency 1st gestation Renee Mai MD Work Phone: Start: 11-20-2021 STREP A MOLECULAR (POC) Pati Sinha BELT CLEANER.SEA FOAM KISS MAKER Work Phone: Start: 02-12-2021 Adult depression scr eening assessment Noemy Camarillo BELT CLEANER.SEA FOAM KISS MAKER Work Phone: Plan of Treatment Date Care Activity Detail Author Start: 04-26-2032 Urine microalbumin profile [facility] Start: 07-22-2026 Urine microalbumin profile DTAP,TDAP,TD (3 - Td or Tdap) [facility] Start: 06-11-2024 PAP TESTING PAP TESTING [facility] Start: 06-11-2024 Screening for malign ant neoplasm of cervix Cervical Cancer Screening [facility] Start: 12-28-2023 Covid-19 Vaccine ( season) Covid-19 Vaccine ( season) [facility] Start: 12-28-2023 Influenza vaccination Influenza Vacc ine (#1) [facility] Start: 06-20-2022 Patient discharge [facility] Start: 06-19-2022 Administration of medication [facility] Start: 06-19-2022 Application of ice collar, cap or bag [facility] Start: 06-19-2022 Catheterization of vein [facility] Start: 06-19-2022 Introduction of urin sher catheter [facility] Start: 06-19-2022 Measuring intake and output [facility] Start: 06-19-2022 Notification of physician [facility] Start: 06-19-2022 Procedure discontinued [facility] Start: 06-19-2022 Provision of activit y privileges [facility] Start: 06-19-2022 Vital signs measurements [facility] Start: 06-19-2022 [facility] Start: 06-19-2022 Admission procedure [facility] Start: 06-19-2022 Consultation [facility] Start: 06-18-2022 Nonstress test [facility] Start: 06-18-2022 Obstetric monitoring [facility] Start: 06-18-2022 Vital signs measurements [facility] Start: 06-18-2022 [facility] Start: 06-03-2022 Nonstress test [facility] Start: 06-03-2022 Obstetric monitoring [facility] Start: 06-03-2022 Vital signs measurements [facility] Start: 06-03-2022 [facility] Start: 04-28-2022 DEPRESSION ASSESSMENT DEPRESSION ASS ESSMENT [facility] Start: 04-12-2022 End: 04-12-2023 OBSTETRIC ULTRASOUND WHI OBSTETRIC ULTRASOUND [facility] Anc Imaging Routine 28 weeks gestation of History of macrosomia in in prior , currently , third trimester Expected: 04/12/2022, Expires: 04/12/2023 [facility] Work Phone: Comment on above: Expected: 04/12/2022 , Expires: 04/12/2023 Start: 02-12-2022 Adult depression screening assessment DEPRESSION SCREENING [facility] Start: 02-01-2022 End: 04-03-2022 ALPHA FETOPRO MATERNAL [facility] Work Phone: Comment on above: Expected: 02/01/2022 , Expires: 04/03/2022 Start: 12-27-2021 Influenza vaccination [facility] Start: 11-28-2021 End: 01-28-2022 CBC panel - Blood by Automated count CBC Lab Routine Encounter for supervision of other normal in first trimester Obesity in Expected: 11/28/2021, Expires: 01/28/2022 [facility] Work Phone: Comment on above: Expected: 11/28/2021 , Expires: 01/28/2022 Start: 11-28-2021 End: 01-28-2022 Chromosome 21 trisomy [Presence] in Blood or Tissue by Cytogenetics [id number] PLUS Lab Routine Encounter for supervision of other normal in first trimester Expected: 11/28/2021, Expires: 01/28/2022 [facility] Work Phone: Comment on above: Expected: 11/28/2021 , Expires: 01/28/2022 Start: 11-28-2021 End: 01-28-2022 Hemoglobin A1c in Blood HGB A1C Lab Routine Encounter for supervision of other normal in first trimester Obesity in Expected: 11/28/2021, Expires: 01/28/2022 [facility] Work Phone: Comment on above: Expected: 11/28/2021 , Expires: 01/28/2022 Start: 11-28-2021 End: 01-28-2022 Hepatitis B virus surface Ab [Presence] in Serum by Immunoassay HEP B SURF AG SCRN Lab Routine Encounter for supervision of other normal in first trimester Obesity in Expected: 11/28/2021, Expires: 01/28/2022 [facility] Work Phone: Comment on above: Expected: 11/28/2021 , Expires: 01/28/2022 Start: 11-28-2021 End: 01-28-2022 Hepatitis C virus Ab [Presence] in Serum HEP C AB IA W/CONF SCRN Lab Routine Encounter for supervision of other normal in first trimester Obesity in Expected: 11/28/2021, Expires: 01/28/2022 [facility] Work Phone: Comment on above: Expected: 11/28/2021 , Expires: 01/28/2022 Start: 11-28-2021 End: 01-28-2022 HIV 1+2 Ab [Presence] in Serum or Plasma by Immunoassay HIV 1 2 COMBO(AG/AB),WITH REFLEX TO DIFFERENTIATION Lab Routine Encounter for supervision of other normal in first trimester Obesity in Expected: 11/28/2021, Expires: 01/28/2022 [facility] Work Phone: Comment on above: Expected: 11/28/2021 , Expires: 01/28/2022 Start: 11-28-2021 End: 01-28-2022 RUBELLA IGG AB RUBELLA IGG AB Lab Routine Encounter for supervision of other normal in first trimester Obesity in Expected: 11/28/2021, Expires: 01/28/2022 [facility] Work Phone: Comment on above: Expected: 11/28/2021 , Expires: 01/28/2022 Start: 11-28-2021 End: 01-28-2022 SYPHILIS TOTAL W/REFLEX SYPHILIS TOTAL W/REFLEX Lab Routine Encounter for supervision of other normal in first trimester Obesity in Expected: 11/28/2021, Expires: 01/28/2022 [facility] Work Phone: Comment on above: Expected: 11/28/2021 , Expires: 01/28/2022 Start: 11-28-2021 End: 01-28-2022 TYPE + SCREEN TYPE + SCREEN Blood Bank Routine Encounter for supervision of other normal in first trimester Obesity in Expected: 11/28/2021, Expires: 01/28/2022 [facility] Work Phone: Comment on above: Expected: 11/28/2021 , Expires: 01/28/2022 Start: 04-28-2021 DEPRESSION ASSESSMENT DEPRESSION ASS ESSMENT [facility] Start: 02-29-2020 HPV TESTING HPV TESTING [facility] Start: 2008 Hepatitis B Vaccine (1 of 3 - 19+ 3-dose series) Hepatitis B Vaccine (1 of 3 - 19+ 3-dose series) [facility] Start: 12-13-2007 Depression Screening Depression Scre ening [facility] Start: 1994 COVID-19 VACCINE (#1) COVID-19 VACCI NE (#1) [facility] Start: 06-14-1990 COVID-19 VACCINE (#1) COVID-19 VACCI NE (#1) [facility] Start: 1989 HEPATITIS B (1 of 3 - 3-dose series) HEPATITIS B (1 of 3 - 3-dose series) [facility] Bacteria identified in Urine by Culture URINE CULTURE Microbiology Routine Encounter for supervision of other normal in first trimester Obesity in 11/28/2021 4:00 PM EDT [facility] Work Phone: Chlamydia trachomatis+Neisseria gonorrhoeae DNA [Presence] in Unspecified specimen by MODESTO with probe detection GC/CHLAMYDIA DNA DET Lab Routine Encounter for supervision of other normal in first trimester Obesity in 11/28/2021 4:00 PM EDT [facility] Work Phone: NUCHAL TRANSLUCENCY WHI NUCHAL T RANSLUCENCY WHI Anc Imaging Routine Encounter for supervision of other normal in first trimester Obesity in Ordered: 11/28/2021 [facility] Work Phone: Comment on above: Ordered: 11/28/2021 OBSTETRIC ULTRASOUND WHI OBSTETR IC ULTRASOUND WHI Anc Imaging Routine Encounter for supervision of other normal in first trimester Obesity in Ordered: 11/28/2021 [facility] Work Phone: Comment on above: Ordered: 11/28/2021 OBSTETRIC ULTRASOUND WHI OBSTETR IC ULTRASOUND WHI Anc Imaging Routine Encounter for supervision of other normal in second trimester Ordered: 12/27/2021 [facility] Work Phone: Comment on above: Ordered: 12/27/2021 Patient Education [facility] Work Phone: Patient referral [facility] Work Phone: ROUTINE, GR OUP B STREP PCR ROUTINE, GROUP B STREP PCR Microbiology Routine 37 weeks gestation of 06/12/2022 3:13 PM EST [facility] Work Phone: STREP A MOLECULAR (POC) STREP A MOLECULAR (POC) Microbiology Routine Sore throat Ordered: 10/15/2021 [facility] Work Phone: Comment on above: Ordered: 10/15/2021 URINE OB DIP B/O URINE OB DIP B/ O Lab Routine 28 weeks gestation of Ordered: 04/12/2022 [facility] Work Phone: Comment on above: Ordered: 04/12/2022 [facility] Immunizations Immunization Date Immunization Notes Care Provider Zoltan moraes 04-26-2022 tetanus toxoid, redu miles diphtheria toxoid, and acellular pertussis vaccine, adsorbed Renee Mai MD Work Phone: [facility] 06-11-2019 influenza, injectabl e, quadrivalent, contains preservative 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 Work Phone: [facility] Work Phone: 06-11-2019 influenza virus vaccine, unspecified formulation Tenzin ADAM Work Phone: [facility] 06-04-2017 influenza, injectabl e, quadrivalent, contains preservative 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 Work Phone: [facility] 07-22-2016 tetanus toxoid, redu miles diphtheria toxoid, and acellular pertussis vaccine, adsorbed 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 Work Phone: [facility] 02-11-2014 influenza, seasonal, injectable 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 Work Phone: [facility] 02-11-2014 tetanus toxoid, redu miles diphtheria toxoid, and acellular pertussis vaccine, adsorbed 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 Work Phone: [facility] Payers Date Payer Category Payer Self-pay [id number] 2024 Private Health Insurance [facility] CHOICE PLUS [id number] 2024-Present [phone] [address] [place] [address] [facility] [id number] 2024 Unknown [id number] 2019 Unknown [employer] BLUE CARD PPO OOS [id number] 2019-Present [phone] [address] [place] [address] PPO [id number] 2017 Unknown 2016 Unknown [employer] EXCHANGE PLAN [id number] 1989 Unknown [id number] 1989 Unknown [id number] Unknown [id number] Unknown [id number] Social History Date Type Detail Facility Start: 02-22-2013 End: 05-13-2022 Tobacco smoking status NHIS Never smoked tobacco [facility] Start: 10-15-2021 End: 11-20-2021 Alcohol intake Current drinker of alcohol (finding) [facility] Start: 02-12-2021 End: 03-28-2021 History SDOH Alcohol Frequency 2 [facility] Start: 02-12-2021 End: 03-28-2021 History SDOH Alcohol Std Drinks 1 [facility] Start: 06-11-2019 History SDOH Alcohol Comment rarely- not while [facility] Start: 02-12-2021 History SDOH Social Connections Phone 5 [facility] Start: 02-12-2021 History SDOH Social Connections Congregational 3 [facility] Start: 06-08-2019 Education 21 [facility] Start: 1990 Sex Assigned At Not on file [facility] Start: 01-24-2020 End: 06-19-2022 Tobacco smoking consumption unknown [facility] Start: 11-22-2021 End: 04-22-2024 Alcohol intake Ex-drinker (finding) [facility] Start: 10-10-2021 [facility] Start: 11-12-2021 End: 03-28-2022 Exposure to SARS-CoV-2 (event) Not sure [facility] Work Phone: Start: 02-22-2013 End: 05-13-2022 Tobacco use and exposure Smokeless tobacco non-user [facility] Start: 1990 Sex Assigned At Female [facility] Start: 02-12-2021 End: 05-12-2022 History of Social function [facility] Start: 02-12-2021 End: 05-12-2022 Social connection and isolation panel [facility] Do you belong to any clubs or organizations such as quaker groups, unions, fraternal or athletic groups, or school groups? Yes [facility] Are you now , , , , never or living with a partner? [facility] How often to you hav e a drink containing alcohol? Monthly or less [facility] How many standard dr inks containing alcohol do you have on a typical day? 1 or 2 [facility] How often do you hav e 6 or more drinks on 1 occasion? Never [facility] How hard is it for y ou to pay for the very basics like food, housing, medical care, and heating Not hard at all [facility] Do you feel stress - tense, restless, nervous, or anxious, or unable to sleep at night because your mind is troubled all the time - these days [OSQ] To some extent [facility] (I/We) worried wheth er (my/our) food would run out before (I/we) got money to buy more. Never true [facility] In the past 12 month s, was there a time when you were not able to pay the mortgage or rent on time? No [facility] Goals Date Patient Goal Desired Activity /State Clinical Notes 09-13-2013 to 04-22-2024 Home Poe MD - 04/22/2024 11:55 AM ESTTelephone Encounter - Suzette Valles MA - 04/14/2024 9:54 AM ESTTelephone Encounter - Suzette Valles MA - 04/14/2024 9:54 AM EST Note Date & Type Note Facility 04-22-2024 Note HNO ID: [id number] Author: HOME POE MD Service: ? Author [...] any risk of ). Home Poe MD [facility] 04-22-2024 History of Presen t illness Narrative [...] Home Poe MD documented in this encounter [facility] 04-14-2024 Telephone encounter Note Patient given results and verbalized understanding of instructions given. Suzette Valles MA [facility] 04-14-2024 Miscellaneous Notes Patient given results and verbalized understanding of instructions given. Suzette Valles MA Please let patient know xray is normal- no pneumonia. I have sent an inhaler to her pharmacy for her. documented in this encounter [facility] 04-13-2024 Telephone encounter Note Please let patient know xray is normal- no pneumonia. I have sent an inhaler to her pharmacy for her. [facility] 04-13-2024 History of Presen t illness [...] PATIENT PRESENTS WITH AN IMPLANTABLE OR ATTACHED SUPERVISOR DIALS: No RADIOLOGY DEPARTMENT: General X-ray: Exam(s) Completed: Chest X-Ray PERIPHERAL IV DATA: Not applicable SIGNED BY: RT Saritha(R) April 13, 2024 3:09 PM documented in this encounter [facility] 04-13-2024 Note HNO ID: [id number] Author: RORO HEWITT RT(R) Service: ? Author Type: Polls Or Surveys Interviewer Type: Progress Notes Filed: 04/13/2024 15:16 Note [...] PATIENT PRESENTS WITH AN IMPLANTABLE OR ATTACHED SUPERVISOR DIALS: No RADIOLOGY DEPARTMENT: General X-ray: Exam(s) Completed: Chest X-Ray PERIPHERAL IV DATA: Not applicable SIGNED BY: RT Saritha(R) April 13, 2024 3:09 PM [facility] 04-13-2024 Note HNO ID: [id number] Author: TENZIN CRUZ PA Service: ? Author Type: Physician Machine Quilt Stuffer Type: Progress Notes Filed: 04/13/2024 15:21 Note Text: This note was created using Right On Interactiveriter. Subjective Krista Mast is a 33 year [...] pneumonia. Patient has not really tried anything mmbs-mjb-zfjtyks for symptoms. No other complaint. PAST MEDICAL [...] Grandmother Heart Paternal Grandfather other (healthy) Daughter [place] ADD/ADHD Daughter Eczema Daughter Psoriasis Daughter No [...] detail warranting prompt ER evaluation. KIA Good [facility] 04-13-2024 History of Presen t illness Narrative This note was created using Right On Interactiveriter. Subjective Krista Mast is a 33 year [...] pneumonia. Patient has not really tried anything agxr-rbx-motdvla for symptoms. No other complaint. PAST MEDICAL [...] evaluation. KIA Good documented in this encounter [facility] 06-21-2022 Miscellaneous Notes Have the patient use nzve-sdt-roekdif Preparation H and witch rigoberto pads. Please see pt's Phlexglobalt message and advise further. Nathalie Austin LPN documented in this encounter [facility] 06-20-2022 Discharge summary Note Date/Time June 20, 2022 8:31am [facility] Medical Records Department [address] [place] [address] Instructions for Home/Discharge Instructions 06/20/22 0830 MR#: [id number] Acct: [id number] Name: KRITSA MAST Rep #:[id number] : 1990 31 From: Valery Lockhart CNM [...] Valery Lockhart CNM>Valery Lockhart CNM CC: Dr. Tyrese Torres, ~ Signed [facility] Work Phone: 1(485) 563-547702-23-2023 Progress note Author Valery [facility] June 20, 2022 8:30am Note Date/Time June 20, 2022 8:30am [facility] Medical Records Department [address] [place] [address] Progress Note - OBGYN 06/20/22827 MR#: [id number] Acct: [id number] Name: KRISTA MAST Rep #:[id number] : 1990 31 From: Valery Lockhart CNM PCP: Dr. Tyrese Torres DO Status:AD IN Location: [place] [id number] Subjective Subjective Patient seen at bedside. Feeling [...] Intake and Output for Last 24 Hours 02/21/23 02/22/23 02/23/23 23:59 23:59 23:59 Intake Total 1550.03 / [...] 82.0 H, Lymph % (Auto) 9.8 L, Morrison % (Auto) 7.2, Eos % (Auto) 0.2, [...] Cosigner Signature (if applicable): CC: ~ Signed [facility] Work Phone: 1(821) 883-602302-22-2023 History and physical note Author M Dr. Renee Biswas [facility] June 19, 2022 11:36am Note Date/Time June 19, 2022 11:36am [facility] Medical Records Department [address] [place] [address] H&P Exam - 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 06/19/22 1134 MR#: [id number] Acct: [id number] Name: KRISTA MAST Rep #:[id number] : 1990 31 From: Renee Mai MD PCP: Dr. Tyrese Torres, DO Status:AD M IN Location: [id number] HPI - General General Date of Admission: [...] Anticipate 06/19/22 1136 <Electronically signed by Renee Avina MD> Cosigner Signature (if applicable): CC: M Dr. Renee Avina; Dr. Tyrese Torres, DO~ Signed [facility] Work Phone: 1(377) 789-958802-22-2023 Procedure [facility] 06-12-2022 Miscellaneous Notes* Quick Notes - Renee Mai MD - 06/12/2022 3:03 PM EST DM- Pt doing well today. Denies Vaginal Bleeding, Leaking fluid, or contractions. Pt reports good movement. Kick counts and labor reviewed. GBS today. Vertex on ultrasound, waqas appears wnl. RTOone week. Renee Mai MD [facility] Instructions* Patient Instructions* Xochitl Rooney Ma - 06/12/2022 2:40 PM EST SEQUENTIAL SCREENINGS The [facility] offers sequential screenings for women who are [...] testing. It will require an appointment withour facility technician. This is not an ultrasound performed [...] the above symptoms, contact our office at [phone] and ask to speak with anurse. After hours, you can call doctors registry at [phone] OR call [facility] at [phone] ask to have the doctor sap solution manager consultant paged. If you consider this an emergency, dial 6-9-7 or go to your nearest emergency department. NEED HELP? Are you dealing with a violent or abusive relationship? Are you a victim of rape or sexual assult? Call [facility] ([place]) 24 hour Crisis Hotline: 889.903.8572 or 699-756-7763. MANUAL Your Guide to a Healthy manual is now on-line. Visit [email or web address] to download your free copy documented [facility]02[facility]23 Miscellaneous Notes* Quick Notes - Silvia Vu [...] call. Silvia Vu APRN.CNM documented in [facility]02-[facility]-2023 Instructions* Patient Instructions* Leodan Hester Tank Bottom Assembler - 06/05/2022 1:52 PM EST SEQUENTIAL SCREENINGS The [facility] offers sequential screenings for women who are [...] testing. It will require an appointment withour facility technician. This is not an ultrasound performed [...] the above symptoms, contact our office at [phone] and ask to speak with anurse. After hours, you can call doctors registry at [phone] OR call [facility] at [phone] ask to have the doctor sap solution manager consultant paged. If you consider this an emergency, dial 9-5 or go to your nearest emergency department. NEED HELP? Are you dealing with a violent or abusive relationship? Are you a victim of rape or sexual assult? Call [facility] ([place]) 24 hour Crisis Hotline: 995.919.1172 or 187-485-2729. MANUAL Your Guide to a Healthy manual is now on-line. Visit [email or web address] to download your free copy documented in [facility]02-[facility]23 Miscellaneous Notes* Quick Notes - Earl Vences [...] precautions Earl Vences MD documented in this [facility]Nor[facility]02-[facility]23 History of Present illness Narrative* Earl Vences [...] SIGNATURE: Earl Vences MD documented in this encounterNor[facility] Hospital02-07-2023 Instructions* Patient Instructions* Xochitl Rooney Ma - 06/04/2022 11:24 AM EST SEQUENTIAL SCREENINGS The [facility] offers sequential screenings for women who are [...] testing. It will require an appointment withour facility technician. This is not an ultrasound performed [...] the above symptoms, contact our office at [phone] and ask to speak with anurse. After hours, you can call doctors registry at [phone] OR call [facility] at [phone] ask to have the doctor sap solution manager consultant paged. If you consider this an emergency, dial 91-5 or go to your nearest emergency department. NEED HELP? Are you dealing with a violent or abusive relationship? Are you a victim of rape or sexual assult? Call [facility] ([place]) 24 hour Crisis Hotline: 497.344.7654 or 567-958-5800. MANUAL Your Guide to a Healthy manual is now on-line. Visit [email or web address] to download your free copy documented in this encounterNor[facility]02-[facility]-2023 History of Present illness Narrative* Renee Mai [...] SIGNATURE: Renee Avina MD documented in this encounterNorwalk [facility] Hospital02-02-2023 Miscellaneous Notes* Quick Notes - Renee Mai MD - 05/30/2022 11:09 AM EST DM- Pt doing well today. Denies Vaginal Bleeding, Leaking fluid, or contractions. Pt reports good movement. tachy on doppler will get NST. RTO 1-2 weeks. Growth us reviewed. Renee Avina MD documented in this encounterNor[facility] Hospital02-02-2023 Instructions* Patient Instructions* Xochitl Rooney Ma - 05/30/2022 10:41 AM EST SEQUENTIAL SCREENINGS [facility] offers sequential screenings for women who are [...] testing. It will require an appointment withour facility technician. This is not an ultrasound performed [...] the above symptoms, contact our office at [phone] and ask to speak with anurse. After hours, you can call doctors registry at [phone] OR call [facility] at [phone] ask to have the doctor sap solution manager consultant paged. If you consider this an emergency, dial 2-6-1 or go to your nearest emergency department. NEED HELP? Are you dealing with a violent or abusive relationship? Are you a victim of rape or sexual assult? Call [facility] ([place]) 24 hour Crisis Hotline: 504.396.4579 or 371-039-5934. MANUAL Your Guide to a Healthy manual is now on-line. Visit [email or web address] to download your free copy documented in this encounterNorwalk [facility] Hospital01-16-2023 Miscellaneous Notes* Quick Notes - Silvia Vu [...] results Silvia Vu APRN.CNM documented in this encounterNorwalk Memorial Hospital01-16-2023 Instructions* Patient Instructions* Leodan Hester Cma - 05/13/2022 11:10 AM EST SEQUENTIAL SCREENINGS [facility] offers sequential screenings for women who are [...] testing. It will require an appointment withour facility technician. This is not an ultrasound performed [...] the above symptoms, contact our office at [phone] and ask to speak with anurse. After hours, you can call [facility] at [phone] OR call [facility] at [phone] ask to have the doctor sap solution manager consultant paged. If you consider this an emergency, dial 3-7-8 or go to your nearest emergency department. NEED HELP? Are you dealing with a violent or abusive relationship? Are you a victim of rape or sexual assult? Call [facility] ([place]) 24 hour Crisis Hotline: 626.193.4921 or 100-718-2374. MANUAL Your Guide to a Healthy manual is now on-line. Visit [email or web address] to download your free copy documented in this encounterNorwalk Memorial Hospital12-30-2022 Miscellaneous Notes* Quick Notes - Renee Mai MD - 04/26/2022 10:56 AM EST DM- Pt doing well today. Denies Vaginal Bleeding, Leaking fluid, or contractions. Pt reports good movement. Continue asa. Will schedule growth at 32 weeks. RTO 2 wks. Kick counts reviewed. Tdaptoday. Renee Mai MD documented in this encounterNorwalk Memorial Hospital12-30-2022 Instructions* Patient Instructions* Xochitl Rooney Ma - 04/26/2022 10:40 AM EST SEQUENTIAL SCREENINGS [facility] offers sequential screenings for women who are [...] testing. It will require an appointment withour facility technician. This is not an ultrasound performed [...] the above symptoms, contact our office at [phone] and ask to speak with anurse. After hours, you can call doctors registry at [phone] OR call [facility] at [phone] ask to have the doctor sap solution manager consultant paged. If you consider this an emergency, dial 9-1-8 or go to your nearest emergency department. NEED HELP? Are you dealing with a violent or abusive relationship? Are you a victim of rape or sexual assult? Call [facility] ([place]) 24 hour Crisis Hotline: 895.201.5957 or 833-448-3063. MANUAL Your Guide to a Healthy manual is now on-line. Visit [email or web address] to download your free copy documented in this encounterNorwalk Memorial Hospital12-16-2022 Miscellaneous Notes* Quick Notes - Renee Mai MD - 04/12/2022 3:13 PM EST DM- Pt doing well today. Denies Vaginal Bleeding, Leaking fluid, or contractions. Pt reports good movement. Tdap next visit. Passed 3hr. 32 week growth us ordered. Continue ASA. Kick counts reviewed. RTO 2 wks. Renee Avina MD documented in this encounterNorwalk Memorial Hospital12-16-2022 History of Present illness Narrative* Xochitl Rooney Ma - 04/12/2022 2:40 PM EST . documented in this encounterNorwalk Memorial Hospital12-16-2022 Instructions* Patient Instructions* Xochitl Rooney Ma - 04/12/2022 2:36 PM EST SEQUENTIAL SCREENINGS [facility] offers sequential screenings for women who are [...] testing. It will require an appointment withour facility technician. This is not an ultrasound performed [...] the above symptoms, contact our office at [phone] and ask to speak with anurse. After hours, you can call doctors registry at [phone] OR call [facility] at [phone] ask to have the doctor sap solution manager consultant paged. If you consider this an emergency, dial 9--6 or go to your nearest emergency department. NEED HELP? Are you dealing with a violent or abusive relationship? Are you a victim of rape or sexual assult? Call [facility] ([place]) 24 hour Crisis Hotline: 929.652.5718 or 140-703-9371. MANUAL Your Guide to a Healthy manual is now on-line. Visit [email or web address] to download your free copy documented in this encounterNorwalk Memorial Hospital11-03-2022 Miscellaneous Notes* Quick Notes - Renee Mai MD - 02/28/2022 10:31 AM EDT DM- Pt doing well today. Denies Vaginal Bleeding, Leaking fluid, or contractions. Pt reports good movement. Continue ASA. Declines Flu. RTO 4 wks. Renee Avina MD documented in this encounterNorwalk Memorial Hospital11-03-2022 Instructions* Patient Instructions* Xochitl Rooney Ma - 02/28/2022 10:16 AM EDT SEQUENTIAL SCREENINGS [facility] offers sequential screenings for women who are [...] testing. It will require an appointment withour facility technician. This is not an ultrasound performed [...] the above symptoms, contact our office at [phone] and ask to speak with anurse. After hours, you can call doctors registry at [phone] OR call [facility] at [phone] ask to have the doctor sap solution manager consultant paged. If you consider this an emergency, dial 3-1-5 or go to your nearest emergency department. NEED HELP? Are you dealing with a violent or abusive relationship? Are you a victim of rape or sexual assult? Call [facility] ([place]) 24 hour Crisis Hotline: 822.819.8277 or 657-695-7710. MANUAL Your Guide to a Healthy manual is now on-line. Visit [email or web address] to download your free copy documented in this encounterNorwalk Memorial Hospital10-07-2022 Miscellaneous Notes* Quick Notes - Renee Mai MD - 02/01/2022 2:44 PM EDT DM- Pt doing well today. Denies Vaginal Bleeding, Leaking fluid, or contractions. Pt reports good movement. Anatomy us pending- GIRL. AFP today. Declines flu vaccine. RTO 4 wks. Continue ASA. Renee Avina MD documented in this encounterNorwalk Memorial Hospital10-07-2022 Instructions* Patient Instructions* Xochitl Rooney Ma - 02/01/2022 1:41 PM EDT SEQUENTIAL SCREENINGS [facility] offers sequential screenings for women who are [...] testing. It will require an appointment withour facility technician. This is not an ultrasound performed [...] the above symptoms, contact our office at [phone] and ask to speak with anurse. After hours, you can call doctors registry at [phone] OR call [facility] at [phone] ask to have the doctor sap solution manager consultant paged. If you consider this an emergency, dial 1-1-0 or go to your nearest emergency department. NEED HELP? Are you dealing with a violent or abusive relationship? Are you a victim of rape or sexual assult? Call [facility] ([place]) 24 hour Crisis Hotline: 356.681.5965 or 635-367-5558. MANUAL Your Guide to a Healthy manual is now on-line. Visit [email or web address] to download your free copy documented in this encounterNorwalk Memorial Hospital09-16-2022 Miscellaneous Notes* Telephone Encounter - Renee Mai MD - 01/11/2022 1:48 PM EDT I am not concerned with WELDON as she is only 15 weeks. WELDON can be normal in - follow up with pcp is fine to r/o other etiologies. documented in this encounterNorwalk Memorial Hospital09-12-2022 Miscellaneous Notes* Telephone Encounter - Cyndi Rodriguez [...] Provider. Cyndi Rodriguez RN documented in this encounterNorwalk Memorial Hospital09-01-2022 Miscellaneous Notes* Quick Notes - Renee Mai MD - 12/27/2021 4:26 PM EDT DM- Pt doing well today. Denies Vaginal Bleeding, Leaking fluid, or cramping. Some nausea at night.NT today. RTO 4 wks. Anatomy us ordered. Taking ASA. Renee Avina MD documented in this encounterNorwalk Memorial Hospital09-01-2022 Instructions* Patient Instructions* Xochitl Rooney Ma - 12/27/2021 3:16 PM EDT SEQUENTIAL SCREENINGS [facility] offers sequential screenings for women who are [...] testing. It will require an appointment withour facility technician. This is not an ultrasound performed [...] the above symptoms, contact our office at [phone] and ask to speak with anurse. After hours, you can call doctors registry at [phone] OR call [facility] at [phone] ask to have the doctor sap solution manager consultant paged. If you consider this an emergency, dial 9-1-7 or go to your nearest emergency department. NEED HELP? Are you dealing with a violent or abusive relationship? Are you a victim of rape or sexual assult? Call [facility] ([place]) 24 hour Crisis Hotline: 805.126.7350 or 512-014-6715. MANUAL Your Guide to a Healthy manual is now on-line. Visit [email or web address] to download your free copy documented in this encounterNorwalk Memorial Hospital08-04-2022 Miscellaneous Notes* Telephone Encounter - Meme Meyer APRN.CNP - 11/29/2021 11:52 AM EDT This has since been addressed by Pati Sinha APRN on 11/28/21. Closing this encounter. Meme Meyer APRN.CNP * Telephone Encounter - Safia Hazel Ma - 11/27/2021 12:09 PM EDT See pt message. Safia Hazel Ma documented in this encounterNorwalk Memorial Hospital08-04-2022 Miscellaneous Notes* Telephone Encounter - Meme Meyer APRN.CNP - 11/29/2021 11:51 AM EDT This has since been addressed by Pati Sinha APRN on 11/28/21. Closing this encounter. Meme Meyer APRN.GABBIE documented in this encounterNorwalk Memorial Hospital08-03-2022 Miscellaneous Notes* Quick Notes - Renee Mai MD - 11/28/2021 3:53 PM EDT DM- New OB. Maternity 21 and NT requested. Baby ASA reviewed. RTO 4 wks. Renee Avina MD documented in this encounterNorwalk Memorial Hospital08-03-2022 Instructions* Patient Instructions* Xochitl Rooney Ma - 11/28/2021 3:14 PM EDT Please select the following link to access the [facility] Your Guide to a Healthy . [email or web address] documented in this encounterNorwalk Memorial Hospital08-03-2022 History of Present illness Narrative* Renee Mai [...] Multivitamin with Folic acid: Yes Occupation: Home Yarsanism or heritage: No Would refuse blood transfusion [...] prn. Renee Avina MD documented in this encounterNorwalk Memorial Hospital07-28-2022 Miscellaneous Notes* Telephone Encounter - Shanthi Mitchell [...] a physician to physician consult with Dr. Loznao, Pediatric Infectious Disease. You can view consult [...] only if further advice. documented in this encounterNorwalk Memorial Hospital07-28-2022 History of Present illness Narrative* Diane Garza [...] Comments: 1st deg perineal lac- no repair, NDZ309 mL, loose nuchal cord x2, congenital laryngomyalacia # 4 - Date: None, Sex: None, Weight: None, GA: None, Delivery: None, Apgar1: None, Apgar5: None, Living: None, Comments: None documented in this encounterNorwalk Memorial Hospital07-28-2022 Miscellaneous Notes* Quick Notes - Diane Garza [...] Infectious Disease. You can view consult under Salenaperfecto Mast, patient's daughter, . Patient is currently [...] a therapist. Takes lorazepam as needed. Discussed critical access hospital risks of depression during and and importance [...] Discussed options. Patient was given number to [employer] to check on coverage for maternity 21+ test. Patient declines genetic carrier screeningtesting.Diane Gazra RN documented in this encounterNorwalk Memorial Hospital07-26-2022 History of Present illness Narrative* Pati Barnhartlogallen, BELT CLEANER.SEA [employer]AM KISS MAKER - 11/20/2021 11:32 AM EDT 11/20/2021 Patient presents with: Sore Throat: x1 day SUBJECTIVE: This is a 30 year old that is here today for Above Complaints. Had strep throat back in September and was treated. Reports at [facility] last week and tested positive [...] which included preparing to see the patient, [id number] patient care, completing clinical documentation, obtaining and/or reviewing separately obtained history, performing a medically appropriate examination, counseling and educating the pat ient/family/caregiver and ordering medications, tests, or procedures. documented in this encounterNorwalk Memorial Hospital06-20-2022 Instructions* Patient Instructions* Noemy Camarillo APRN.CNP - [...] or inability to swallow. documented in this encounterNorwalk Memorial Hospital06-20-2022 History of Present illness Narrative* Noemy Camarillo APRN.CNP - 10/15/2021 9:00 AM EDT This is a 30 year old female who presents today with: Patient presents with: Sore Throat: x4 days with chills HISTORY OF PRESENT ILLNESS: Krista Mast is a 30 year old female. Patient presents with: Sore Throat: x4 days with chills Pt presents today with complaint of sore throat. Refers that it started Filipe night. + chills. + fatigue. No head congestion. Left ear pain. Minimal cough, but thinks related to seasonal allergies. No n/v/d. No one else around her sick. Advil, cough drops, salt water gargles, as needed. She was participating in [employer] last week and was around 200 + [...] once daily. Rinse mouth after use. vit no.[id number] 400 mcg- 25 mg chew cetirizine (ZYRTEC) 10 mg tablet Take 10 mg by mouth once daily. No current facility-administered medications for this visit. FAMILY HISTORY Problem Relation Age of Onset Heart Mother Hypertension Mother Hypertension Father other (uterine cancer) Maternal Grandmother Heart Maternal Grandfather CHF Diabetes Paternal Grandmother Heart Paternal Grandfather other (hepatitis) Maternal Uncle other (healthy) Daughter [place] Social History Tobacco Use Smoking status: Never [...] agrees with the plan. documented in this encounterNorwalk Memorial Hospital05-19-2014 History of Past illness Narrative* Problem Noted Date Resolved Date Supervision of normal first 09/13/2013 07/01/2014 Overview: XX History of kidney stones 09/09/2013 015 Overview: 09/09/2013 She has a history of kidney stones in 2007. She denies any recurrences. TKRN documented as of this encounter (statuses as of 10/15/2021) [facility] of [facility] illness Narrative* Problem Noted Date Resolved Date Supervision of normal first 09/13/2013 07/01/2014 Overview: XX History of kidney stones 09/09/2013 015 Overview: 09/09/2013 She has a history of kidney stones in 2007. She denies any recurrences. TKRN documented as of this encounter (statuses as of 11/20/2021) [facility] of [facility] illness Narrative* Problem Noted Date Resolved Date Supervision of normal first 09/13/2013 07/01/2014 Overview: XX History of kidney stones 09/09/2013 015 Overview: 09/09/2013 She has a history of kidney stones in 2007. She denies any recurrences. TKRN documented as of this encounter (statuses as of 11/22/2021) [facility] Narrative* Problem Noted Date Resolved Date Supervision of normal first 09/13/2013 07/01/2014 Overview: XX History of kidney stones 09/09/2013 015 Overview: 09/09/2013 She has a history of kidney stones in 2007. She denies any recurrences. TKRN documented as of this encounter (statuses as of 11/22/2021) [facility] Narrative* Problem Noted Date Resolved Date Supervision of normal first 09/13/2013 07/01/2014 Overview: XX History of kidney stones 09/09/2013 015 Overview: 09/09/2013 She has a history of kidney stones in 2007. She denies any recurrences. TKRN documented as of this encounter (statuses as of 11/28/2021) [facility] Narrative* Problem Noted Date Resolved Date Supervision of normal first 09/13/2013 07/01/2014 Overview: XX History of kidney stones 09/09/2013 015 Overview: 09/09/2013 She has a history of kidney stones in 2007. She denies any recurrences. TKRN documented as of this encounter (statuses as of 11/28/2021) [facility] Narrative* Problem Noted Date Resolved Date Supervision of normal first 09/13/2013 07/01/2014 Overview: XX History of kidney stones 09/09/2013 015 Overview: 09/09/2013 She has a history of kidney stones in 2007. She denies any recurrences. TKRN documented as of this encounter (statuses as of 11/29/2021) [facility] Narrative* Problem Noted Date Resolved Date Supervision of normal first 09/13/2013 07/01/2014 Overview: XX History of kidney stones 09/09/2013 015 Overview: 09/09/2013 She has a history of kidney stones in 2007. She denies any recurrences. TKRN documented as of this encounter (statuses as of 12/27/2021) [facility] Narrative* Problem Noted Date Resolved Date Supervision of normal first 09/13/2013 07/01/2014 Overview: XX History of kidney stones 09/09/2013 015 Overview: 09/09/2013 She has a history of kidney stones in 2007. She denies any recurrences. TKRN documented as of this encounter (statuses as of 12/27/2021) [facility] Narrative* Problem Noted Date Resolved Date Supervision of normal first 09/13/2013 07/01/2014 Overview: XX History of kidney stones 09/09/2013 015 Overview: 09/09/2013 She has a history of kidney stones in 2007. She denies any recurrences. TKRN documented as of this encounter (statuses as of 01/07/2022) [facility] Narrative* Problem Noted Date Resolved Date Supervision of normal first 09/13/2013 07/01/2014 Overview: XX History of kidney stones 09/09/2013 015 Overview: 09/09/2013 She has a history of kidney stones in 2007. She denies any recurrences. TKRN documented as of this encounter (statuses as of 01/11/2022) [facility] Narrative* Problem Noted Date Resolved Date Supervision of normal first 09/13/2013 07/01/2014 Overview: XX History of kidney stones 09/09/2013 015 Overview: 09/09/2013 She has a history of kidney stones in 2007. She denies any recurrences. TKRN documented as of this encounter (statuses as of 02/01/2022) [facility] Narrative* Problem Noted Date Resolved Date Supervision of normal first 09/13/2013 07/01/2014 Overview: XX History of kidney stones 09/09/2013 015 Overview: 09/09/2013 She has a history of kidney stones in 2007. She denies any recurrences. TKRN documented as of this encounter (statuses as of 02/01/2022) [facility] Narrative* Problem Noted Date Resolved Date Supervision of normal first 09/13/2013 07/01/2014 Overview: XX History of kidney stones 09/09/2013 015 Overview: 09/09/2013 She has a history of kidney stones in 2007. She denies any recurrences. TKRN documented as of this encounter (statuses as of 02/28/2022) [facility] Narrative* Problem Noted Date Resolved Date Supervision of normal first 09/13/2013 07/01/2014 Overview: XX History of kidney stones 09/09/2013 015 Overview: 09/09/2013 She has a history of kidney stones in 2007. She denies any recurrences. TKRN documented as of this encounter (statuses as of 04/12/2022) [facility] Narrative* Problem Noted Date Resolved Date Supervision of normal first 09/13/2013 07/01/2014 Overview: XX History of kidney stones 09/09/2013 015 Overview: 09/09/2013 She has a history of kidney stones in 2007. She denies any recurrences. TKRN documented as of this encounter (statuses as of 05/01/2022) [facility] Narrative* Problem Noted Date Resolved Date Supervision of normal first 09/13/2013 07/01/2014 Overview: XX History of kidney stones 09/09/2013 015 Overview: 09/09/2013 She has a history of kidney stones in 2007. She denies any recurrences. TKRN documented as of this encounter (statuses as of 05/13/2022) [facility] Narrative* Problem Noted Date Resolved Date Supervision of normal first 09/13/2013 07/01/2014 Overview: XX History of kidney stones 09/09/2013 015 Overview: 09/09/2013 She has a history of kidney stones in 2008. She denies any recurrences. TKRN documented as of this encounter (statuses as of 05/30/2022) [facility] Narrative* Problem Noted Date Resolved Date Supervision of normal first 09/13/2013 07/01/2014 Overview: XX History of kidney stones 09/09/2013 015 Overview: 09/09/2013 She has a history of kidney stones in 2008. She denies any recurrences. TKRN documented as of this encounter (statuses as of 06/04/2022) [facility] Narrative* Problem Noted Date Resolved Date Supervision of normal first 09/13/2013 07/01/2014 Overview: XX History of kidney stones 09/09/2013 015 Overview: 09/09/2013 She has a history of kidney stones in 2007. She denies any recurrences. TKRN documented as of this encounter (statuses as of 06/05/2022) [facility] Narrative* Problem Noted Date Resolved Date Supervision of normal first 09/13/2013 07/01/2014 Overview: XX History of kidney stones 09/09/2013 015 Overview: 09/09/2013 She has a history of kidney stones in 2008. She denies any recurrences. TKRN documented as of this encounter (statuses as of 06/09/2022) [facility] Narrative* Problem Noted Date Resolved Date Supervision of normal first 09/13/2013 07/01/2014 Overview: XX History of kidney stones 09/09/2013 015 Overview: 09/09/2013 She has a history of kidney stones in 2008. She denies any recurrences. TKRN documented as of this encounter (statuses as of 06/13/2022) [facility] Narrative* Problem Noted Date Resolved Date Supervision of normal first 09/13/2013 07/01/2014 Overview: XX History of kidney stones 09/09/2013 015 Overview: 09/09/2013 She has a history of kidney stones in 2007. She denies any recurrences. TKRN documented as of this encounter (statuses as of 06/21/2022) [facility]* Diagnosis Strep throat- Primary Streptococcal sore throat Sore throat Acute pharyngitis documented in this encounter [facility]* Diagnosis Strep throat- Primary Streptococcal sore throat documented in this encounter [facility]* Diagnosis H/O macrosomia in in prior , currently - Primary with other poor obstetric history Medication exposure during first trimester of Supervision of other high-risk History of depression Family history of defect Family history of congenital anomalies Obesity during documented in this encounter [facility]* Diagnosis Encounter for supervision of other normal in first trimester- Primary Obesity in Obesity complicating , childbirth, or the puerperium, unspecified as to episode of care or not applicable documented in this encounter [facility]* Diagnosis Encounter for supervision of other normal in first trimester- Primary documented in this encounter [facility]* Diagnosis Encounter for (NT) nuchal translucency scan- Primary Other specified screening 13 weeks gestation of state, incidental documented in this encounter [facility]* Diagnosis Encounter for supervision of other normal in second trimester- Primary Obesity in Obesity complicating , childbirth, or the puerperium, unspecified as to episode of care or not applicable 13 weeks gestation of state, incidental documented in this encounter [facility]* Diagnosis Encounter for anatomic survey- Primary Obesity complicating , second trimester 18 weeks gestation of state, incidental [facility] Diagnosis Obesity during - Primary H/O macrosomia in in prior , currently with other poor obstetric history 18 weeks gestation of state, incidental [facility] Diagnosis Obesity during - Primary H/O macrosomia in infant in prior , currently with other poor obstetric history 22 weeks gestation of state, incidental [facility] Diagnosis History of macrosomia in in prior , currently , third trimester- Primary 28 weeks gestation of state, incidental [facility] Diagnosis Obesity during - Primary H/O macrosomia in infant in prior , currently with other poor obstetric history 30 weeks gestation of state, incidental [facility] Diagnosis 32 weeks gestation of - Primary state, incidental [facility]* Diagnosis Obesity during - Primary tachycardia before the onset of labor Abnormality in heart rate or rhythm before the onset of labor H/O macrosomia in in prior , currently with other poor obstetric history 35 weeks gestation of state, incidental [facility] noteNo assessment information [facility]WMer[facility] Work Phone: [facility] note* Diagnosis 35 weeks gestation of - Primary state, incidental Decreased movements in third trimester, single or unspecified fetus [facility] Diagnosis Decreased movements in third trimester, single or unspecified fetus- Primary Maternal obesity, antepartum Obesity complicating , childbirth, or the puerperium, antepartum condition or complication 36 weeks gestation of state, incidental [facility] Diagnosis 36 weeks gestation of - Primary state, incidental [facility]* Diagnosis Obesity during - Primary H/O macrosomia in in prior , currently with other poor obstetric history 37 weeks gestation of state, incidental [facility]* Diagnosis Onset Date Resolution Status 35 weeks gestation of acute tachycardia [facility] Work Phone: Evaluation note* Diagnosis Onset Date Resolution Status 35 weeks gestation of acute tachycardia acute 38 weeks gestation of acute Care and examination of lactating mother acute (spontaneous vaginal delivery) acute [facility] Work Phone: Evaluation note* Diagnosis Acute cough- Primary Acute cough [facility] Acute [facility] Diagnosis Subacute cough- Primary Cough [facility] Additional Instructions Keep next office appointment.[facility] Work Phone: Hospital Discharge instructions Additional Instructions Call office in AM for continued complaint of leaking fluid.[facility] Work Phone: Reason for referral (narrative)* Diagnostic Procedure Only (Routine) - Open Specialty Diagnoses / Procedures Referred By Cecilia daniels Referred To Contact [facility] Diagnoses Encounter for supervision of other normal in first trimester Obesity in Procedures NUCHAL TRANSLUCENCY WHI US NUCHAL TRANSLUCENCY 1ST GESTATION Renee Kramer MD [address] [place] [address] [facility] [place] [address] [place] [address] Referral ID Status Reason Start Date Expiration Date V isits Requested Visits Authorized [id number] Open Auto-Generate d Referral 11/28/2021 11/28/2022 1 1 * Diagnostic Procedure Only (Routine) - Authorized Specialty Diagnoses / Procedures Referred By Cecilia daniels Referred To Contact [facility] Diagnoses Encounter for supervision of other normal in first trimester Obesity in Procedures OBSTETRIC ULTRASOUND WHI US PREG UTERUS AFTER 1ST TRIMEST GESTATION Renee Kramer MD [address] [place] [address] [facility] [place] [address] [place] [address] Referral ID Status Reason Start Date Expiration Date Visits Requested Visits Authorized [id number] Authorized Auto-Generat ed Referral 11/28/2021 11/28/2022 1 1 [facility] for referral (narrative)* Diagnostic Procedure Only (Routine) - Pending Review Specialty Diagnoses / Procedures Referred By Cecilia t Referred To Contact [facility] Diagnoses Encounter for supervision of other normal in second trimester Procedures OBSTETRIC ULTRASOUND WHI US PREG UTERUS AFTER 1ST TRIMEST GESTATION Renee Kramer MD [address] [place] [address] [facility] [place] [address] [place] [address] Referral ID Status Reason Start Date Expiration Date Visits Requested Visits Authorized [id number] Pending Review Auto-Generat ed Referral 12/27/2021 12/27/2022 1 1 [facility] for referral (narrative)* Diagnostic Procedure Only (Routine) - Pending Review Specialty Diagnoses / Procedures Referred By Cecilia daniels Referred To Contact [facility] Diagnoses 28 weeks gestation of History of macrosomia in infant in prior , currently , third trimester Procedures OBSTETRIC ULTRASOUND WHI US PREG UTERUS AFTER 1ST TRIMEST GESTATION Renee Kramer MD [address] [place] [address] [facility] [place] [facility] [address] [place] [address] Referral ID Status Reason Start Date Expiration Date Visits Requested Visits Authorized [id number] Pending Review Auto-Generat ed Referral 2 04/12/2023 1 1 [facility] Summary Purpose Family History No Family History Records FoundNo Family History Records FoundNo Family History Records FoundNo Family History Records FoundNo Family History Records Found Advance Directives No Advanced Directives Records Found Advance Directive Response Recorded Date/ Time Living Will No January 24, 2020 7:29pm Power of Elevator Pilot No December 7:29pm Advance Directive Response Recorded Date/ Time Living Will No June 19, 2 023 10:43am Power of Elevator Pilot No June 19, 2022 10:43am Health Concerns [...] section and content) DATE CREATED AUTHOR 10/21/2017 [facility] DATE CREATED AUTHOR AUTHOR'S ORGANIZ ATION 11/14/2021 [facility] DATE CREATED AUTHOR AUTHOR'S ORGANIZ ATION 02/06/2022 [facility] DATE CREATED AUTHOR AUTHOR'S ORGANIZ ATION 04/23/2024 [facility] DATE CREATED AUTHOR AUTHOR'S ORGANIZ ATION 03/05/2025 [facility] Source Comments (unrecognize d section and content) In the event this informatio n is protected by the Federal Confidentiality of Alcohol and Drug Abuse Patient Records regulations: The Federal rules restrict any use of the information to criminally investigate or prosecute any alcohol or drug abuse patient.[facility] Hospital[facility] the event this information is protected by the Federal Confidentiality of Alcohol and Drug Abuse Patient Records regulations: The Federal rules restrict any use of the information to criminally investigate or prosecute any alcohol or drug abuse patient.[facility] HospitalIn the event this information is protected by the Federal Confidentiality of Alcohol and Drug Abuse Patient Records regulations: The Federal rules restrict any use of the information to criminally investigate or prosecute any alcohol or drug abuse patient.[facility] HospitalIn the event this information is protected by the Federal Confidentiality of Alcohol and Drug Abuse Patient Records regulations: The Federal rules restrict any use of the information to criminally investigate or prosecute any alcohol or drug abuse patient.[facility] HospitalIn the event this information is protected by the Federal Confidentiality of Alcohol and Drug Abuse Patient Records regulations: The Federal rules restrict any use of the information to criminally investigate or prosecute any alcohol or drug abuse patient.[facility] HospitalIn the event this information is protected by the Federal Confidentiality of Alcohol and Drug Abuse Patient Records regulations: The Federal rules restrict any use of the information to criminally investigate or prosecute any alcohol or drug abuse patient.[facility] HospitalIn the event this information is protected by the Federal Confidentiality of Alcohol and Drug Abuse Patient Records regulations: The Federal rules restrict any use of the information to criminally investigate or prosecute any alcohol or drug abuse patient.[facility] HospitalIn the event this information is protected by the Federal Confidentiality of Alcohol and Drug Abuse Patient Records regulations: The Federal rules restrict any use of the information to criminally investigate or prosecute any alcohol or drug abuse patient.[facility] HospitalIn the event this information is protected by the Federal Confidentiality of Alcohol and Drug Abuse Patient Records regulations: The Federal rules restrict any use of the information to criminally investigate or prosecute any alcohol or drug abuse patient.[facility] HospitalIn the event this information is protected by the Federal Confidentiality of Alcohol and Drug Abuse Patient Records regulations: The Federal rules restrict any use of the information to criminally investigate or prosecute any alcohol or drug abuse patient.[facility] HospitalIn the event this information is protected by the Federal Confidentiality of Alcohol and Drug Abuse Patient Records regulations: The Federal rules restrict any use of the information to criminally investigate or prosecute any alcohol or drug abuse patient.[facility] HospitalIn the event this information is protected by the Federal Confidentiality of Alcohol and Drug Abuse Patient Records regulations: The Federal rules restrict any use of the information to criminally investigate or prosecute any alcohol or drug abuse patient.[facility] HospitalIn the event this information is protected by the Federal Confidentiality of Alcohol and Drug Abuse Patient Records regulations: The Federal rules restrict any use of the information to criminally investigate or prosecute any alcohol or drug abuse patient.[facility] HospitalIn the event this information is protected by the Federal Confidentiality of Alcohol and Drug Abuse Patient Records regulations: The Federal rules restrict any use of the information to criminally investigate or prosecute any alcohol or drug abuse patient.[facility] HospitalIn the event this information is protected by the Federal Confidentiality of Alcohol and Drug Abuse Patient Records regulations: The Federal rules restrict any use of the information to criminally investigate or prosecute any alcohol or drug abuse patient.[facility] HospitalIn the event this information is protected by the Federal Confidentiality of Alcohol and Drug Abuse Patient Records regulations: The Federal rules restrict any use of the information to criminally investigate or prosecute any alcohol or drug abuse patient.[facility] HospitalIn the event this information is protected by the Federal Confidentiality of Alcohol and Drug Abuse Patient Records regulations: The Federal rules restrict any use of the information to criminally investigate or prosecute any alcohol or drug abuse patient.[facility] HospitalIn the event this information is protected by the Federal Confidentiality of Alcohol and Drug Abuse Patient Records regulations: The Federal rules restrict any use of the information to criminally investigate or prosecute any alcohol or drug abuse patient.[facility] HospitalIn the event this information is protected by the Federal Confidentiality of Alcohol and Drug Abuse Patient Records regulations: The Federal rules restrict any use of the information to criminally investigate or prosecute any alcohol or drug abuse patient.[facility] HospitalIn the event this information is protected by the Federal Confidentiality of Alcohol and Drug Abuse Patient Records regulations: The Federal rules restrict any use of the information to criminally investigate or prosecute any alcohol or drug abuse patient.[facility] HospitalIn the event this information is protected by the Federal Confidentiality of Alcohol and Drug Abuse Patient Records regulations: The Federal rules restrict any use of the information to criminally investigate or prosecute any alcohol or drug abuse patient.[facility] HospitalIn the event this information is protected by the Federal Confidentiality of Alcohol and Drug Abuse Patient Records regulations: The Federal rules restrict any use of the information to criminally investigate or prosecute any alcohol or drug abuse patient.[facility] HospitalIn the event this information is protected by the Federal Confidentiality of Alcohol and Drug Abuse Patient Records regulations: The Federal rules restrict any use of the information to criminally investigate or prosecute any alcohol or drug abuse patient.[facility] HospitalIn the event this information is protected by the Federal Confidentiality of Alcohol and Drug Abuse Patient Records regulations: The Federal rules restrict any use of the information to criminally investigate or prosecute any alcohol or drug abuse patient.[facility] HospitalIn the event this information is protected by the Federal Confidentiality of Alcohol and Drug Abuse Patient Records regulations: The Federal rules restrict any use of the information to criminally investigate or prosecute any alcohol or drug abuse patient.[facility] HospitalIn the event this information is protected by the Federal Confidentiality of Alcohol and Drug Abuse Patient Records regulations: The Federal rules restrict any use of the information to criminally investigate or prosecute any alcohol or drug abuse patient.[facility] HospitalIn the event this information is protected by the Federal Confidentiality of Alcohol and Drug Abuse Patient Records regulations: The Federal rules restrict any use of the information to criminally investigate or prosecute any alcohol or drug abuse patient.[facility] HospitalIn the event this information is protected by the Federal Confidentiality of Alcohol and Drug Abuse Patient Records regulations: The Federal rules restrict any use of the information to criminally investigate or prosecute any alcohol or drug abuse patient.[facility] Reason for Visit (unrecogniz ed section and content) Reason Comments Sore Throat x4 days with chills Reason Comments Sore Throat x1 day Reason Comments Care Reason Comments strep throat on Reason Comments Initial OB Visit Reason Comments US Specialty Diagnoses / Procedures Referred By Contac t Referred To Contact [facility] Diagnoses Encounter for supervision of other normal in first trimester Obesity in Procedures OBSTETRIC ULTRASOUND WHI US PREG UTERUS AFTER 1ST TRIMEST GESTATION Renee Kramer MD [address] [place] [address] [address] Referral ID Status Reason Start Date Expiration Date V isits Requested Visits Authorized [id number] Closed Auto-Generate d Referral 11/28/2021 11/28/2022 1 1 Reason Onset Date Comments Care 12/27/2021 Specialty Diagnoses / Procedures Referred By Contac t Referred To Contact [facility] Diagnoses Encounter for supervision of other normal in first trimester Obesity in Procedures NUCHAL TRANSLUCENCY WHI US NUCHAL TRANSLUCENCY 1ST GESTATION Renee Kramer MD [address] [place] [address] [facility] [place] [address] Referral ID Status Reason Start Date Expiration Date V isits Requested Visits Authorized [id number] Closed Auto-Generate d Referral 12/14/2021 04/27/2022 1 1 Reason Comments NIPT results Specialty Diagnoses / Procedures Referred By Contac t Referred To Contact [facility] Diagnoses Encounter for supervision of other normal in second trimester Procedures OBSTETRIC ULTRASOUND WHI US PREG UTERUS AFTER 1ST TRIMEST GESTATION Renee Kramer MD [address] [place] [address] [facility] [place] [address] [place] [id number] Referral ID Status Reason Start Date Expiration Date Visits Requested Visits Authorized [id number] Authorized Auto-Generat ed Referral 04/28/2021 04/27/2022 20 20 Reason Onset Date Comments Care 02/01/2022 Reason Onset Date Comments Care 02/28/2022 Reason Onset Date Comments Care 04/12/2022 Reason Onset Date Comments Care 04/26/2022 Reason Onset Date Comments Care 05/13/2022 Reason Onset Date Comments Care 05/30/2022 Reason Onset Date Comments Care 06/04/2022 Specialty Diagnoses / Procedures Referred By Cecilia t Referred To Contact [facility] Diagnoses Vaginal bleeding in , third trimester Decreased movements in third trimester, single or unspecified fetus Procedures BIOPHYSICAL PROFILE US I BIOPHYSICAL PROFILE NON-STRESS TESTING Silvia Vu APRN.[facility] [address] [place] [address] [facility] [place] [address] [place] [address] Referral ID Status Reason Start Date Expiration Date V isits Requested Visits Authorized [id number] Closed Auto-Generate d Referral 06/05/2022 06/05/2023 10 1 Reason Onset Date Comments Care 06/05/2022 Reason Onset Date Comments Care 06/12/2022 Reason Comments Nasal Congestion drainage, chest tigh tness x 2 weeks Reason Comments Results Reason Comments Chest Congestion cough, fever increas ed x 2 days Care Teams (unrecognized sec tion and content) Business Intelligence Administrator Relationship Specialty Start Date End Date Tyrese Torres DO [address] [place] [address] PCP - General Family Practice 12/26/15 Business Intelligence Administrator Relationship Specialty Start Date End Date Tyrese Torres DO [address] [place], [place] [id number] PCP - General Family Practice 12/26/15 Business Intelligence Administrator Relationship Specialty Start Date End Date Tyrese Torres DO [address] [place], [place] [id number] PCP - General Family Practice 12/26/15 Business Intelligence Administrator Relationship Specialty Start Date End Date Tyrese Torres, DO [address] [place] [address] PCP - General Family Practice 12/26/15 Business Intelligence Administrator Relationship Specialty Start Date End Date Tyrese Torres, DO [address] [place] [address] PCP - General Family Practice 12/26/15 Business Intelligence Administrator Relationship Specialty Start Date End Date Tyrese Torres, DO [address] [place] [address] PCP - General Family Practice 12/26/15 Business Intelligence Administrator Relationship Specialty Start Date End Date Tyrese Torres, DO [address] [place] [address] PCP - General Family Practice 12/26/15 Business Intelligence Administrator Relationship Specialty Start Date End Date Tyrese Torres, DO [address] [place] [address] PCP - General Family Practice 12/26/15 Business Intelligence Administrator Relationship Specialty Start Date End Date Tyrese Torres, DO [address] [place] [address] PCP - General Family Practice 12/26/15 Business Intelligence Administrator Relationship Specialty Start Date End Date Tyrese Torres, DO [address] [place] [address] PCP - General Family Practice 12/26/15 Business Intelligence Administrator Relationship Specialty Start Date End Date Tyrese Torres, DO [address] [place] [address] PCP - General Family Medicine 12/26/15 Business Intelligence Administrator Relationship Specialty Start Date End Date Tyrese Torres, DO [address] [place] [address] PCP - General Family Medicine 12/26/15 Business Intelligence Administrator Relationship Specialty Start Date End Date Tyrese Torres, DO [address] [place] [address] PCP - General Family Medicine 12/26/15 Business Intelligence Administrator Relationship Specialty Start Date End Date Tyrese Torres, DO [address] [place] [address] PCP - General Family Medicine 12/26/15 Business Intelligence Administrator Relationship Specialty Start Date End Date Tyrese Torres, DO [address] [place] [address] PCP - General Family Medicine 12/26/15 Business Intelligence Administrator Relationship Specialty Start Date End Date Tyrese Torres, DO [address] [place] [address] PCP - General Family Medicine 12/26/15 Team Status: Active Member Role Status Dates Dr. Tyrese Torres , DO Family Provider Active Dr. Tyrese Torres , DO Primary Care Provider Active Team Status: Inactive Member Role Status Dates Dr. Tyrese Torres , Primary Care Provider Active Silvia Vu CNM Attending Provider Active Business Intelligence Administrator Relationship Specialty Start Date End Date Tyrese Torres, DO [address] [place] [address] PCP - General Family Medicine 12/26/15 Business Intelligence Administrator Relationship Specialty Start Date End Date Tyrese Torres, DO [address] [place] [address] PCP - General Family Medicine 12/26/15 Team Status: Inactive Member Role Status Dates Dr. Tyrese Torres DO Primary Care Provider Active Dr. Earl Vences MD Attending Provider Active Team Status: Inactive Member Role Status Dates Dr. Tyrese Torres , Primary Care Provider Active Dr. Renee Avina MD Admit Provider, Atten ding Provider Active Business Intelligence Administrator Relationship Specialty Start Date End Date Tyrese Torres, DO [address] [place] [address] PCP - General Family Medicine 12/26/15 Business Intelligence Administrator Relationship Specialty Start Date End Date Tyrese Torres DO [address] [place] [address] PCP - General Family Medicine 12/26/15 Meme Godinez, BELT CLEANER.[employer] KISS MAKER [address] [place] [address] Clinical Law Professor Family Medicine 04/04/24 TimmyLuz Maria, BELT CLEANER.[employer] KISS MAKER [address] [place] [address] Clinical Law Professor Family Medicine 04/04/24 Business Intelligence Administrator Relationship Specialty Start Date End Date Tyrese Torres DO [address] [place] [address] PCP - General Family Medicine 12/26/15 Meme Godinez, BELT CLEANER.[employer] KISS MAKER [address] [place] [address] Clinical Law Professor Family Medicine 04/04/24 TimmyLuz Maria, BELT CLEANER.[employer] KISS MAKER [address] [place] [address] Clinical Law Professor Family Medicine 04/04/24 Business Intelligence Administrator Relationship Specialty Start Date End Date Tyrese Torres DO [address] [place] [address] PCP - General Family Medicine 12/26/15 Meme Godinez, BELT CLEANER.[employer] FOAM KISS MAKER [address] [place] [address] [facility]ly [facility] 04/04/24 Luz Maria Warner, ALTAGRACIA.[employer] K[employer]KER [address] [place], [place] [address] Formerly [facility] 04/04/24 Business Intelligence Administrator Relationship Specialty Start Date End Date Tyrese Torres DO [address] [place], [place] [id number] PCP - General Family Medicine 12/26/15 Meme Godinez APRN.[employer] [address] [place], [place] [id number] [facility] 04/04/24 Luz Maria Warner APRN.[employer] [address] [place], [place] [id number] [facility] 04/04/24 <item> [...] BE BASED ON THE PRIMARY CLINICAL RECORDS. [employer] [facility]. provides no warranty or guarantee of the accuracy or completeness of information in this document.
--- NOTE | 2025-03-30 17:35 | EDS_ITS ---
HPI History of Present Illness Chief Complaint: Chest Pain Narrative Narrative: Patient is a 34-year-old female presenting to the emergency department for chest pain. Patient has no significant past medical history. She states she does have history of anxiety. She reports midsternal chest pain that started this Friday evening. She states it is intermittent. She states it is not associated with activity. It radiates down both her arms. She denies any shortness of breath. Denies fever, chills, cough, congestion, diaphoresis, nausea, vomiting, abdominal pain, lower extremity edema. Denies any history of DVT or PE. Denies any recent travel, hospitalizations or surgeries. Denies any use of hormone therapy or OCPs. States that her maternal and paternal grandfathers both had heart attacks and one of them before the age of 50. States because of this she called her primary care doctor who told her to come to the emergency department to be evaluated. [facility] Medical History Kidney calculus Care and examination of lactating mother (spontaneous vaginal delivery) macrosomia depression Anxiety 38 weeks gestation of Home Medications ?Medication ?Instructions ?Recorded ?Last Taken ?Type ondansetron 8 mg disintegrating 8 mg PO Q8H PRN nausea and 02/21/25 Unknown Rx tablet vomiting #16 tabs oxycodone-acetaminophen 5 mg-325 1 tab PO Q4H PRN Pain 3 days #16 02/21/25 Unknown Rx mg tablet TABLETS Allergy/AdvReac Type Severity Reaction Status Date / Time No Known Allergies Allergy Verified 03/30/25 12:28 Social History Smoking Status: Never smoker ROS ROS ED ROS Narrative See HPI EXAM Physical Exam Narrative Exam Narrative: Vital signs: Reviewed General: Alert and oriented x 3. No acute distress. Well-appearing, nontoxic. HEENT: Head is normocephalic and atraumatic, sinuses nontender, pupils equal round and reactive. Nares are patent. Oropharynx and throat exams normal. Neck: Supple without lymphadenopathy nontender Cardiovascular: Regular rate and rhythm, no murmurs. No rubs or gallops. Normal S1 and S2 Respiratory: Clear to auscultation bilaterally. No wheezes, rales, rhonchi Abdominal: Soft and nontender. Normal bowel sounds. No guarding or rebound. Nonsurgical abdomen Extremities: No lower extremity edema. No tenderness. No bruising. Normal range of motion. Normal sensation. Skin: No rash or redness. The rest of the physical exam is unremarkable Const Vital Signs: 03/30/25 12:26 03/30/25 12:37 03/30/25 13:00 Temperature 97.8 F Temperature Source Oral Pulse Rate 98 93 Respiratory Rate 16 12 Respiratory Effort Normal Respiratory Pattern Normal Blood Pressure 148/101 H 115/82 H Blood Pressure Mean 116 93 Pulse Ox 100 98 Oxygen Delivery Method Room Air Room Air 03/30/25 14:00 03/30/25 14:14 Temperature 98.6 F Temperature Source Pulse Rate 66 72 Respiratory Rate 14 14 Respiratory Effort Respiratory Pattern Blood Pressure 124/81 H 117/84 H Blood Pressure Mean 95 95 Pulse Ox 98 100 Oxygen Delivery Method Room Air MDM MDM MDM Narrative Medical decision making narrative: Patient is a 34-year-old female presenting to the emergency department for chest pain since Friday. Patient was seen and examined. Vitals are stable. Patient resting bed comfortably no acute distress. Differential includes but is not limited to: ACS, pneumonia, less likely PE or aortic pathology CBC with no leukocytosis and no anemia. BMP without significant abnormalities. Troponin within normal limits. This has been going on since Friday I would expect the troponin to be elevated I do not think this is due to obtain a reflex troponin. D-dimer is negative. Chest x-ray reviewed by myself and shows no opacities, pneumothorax or widened mediastinum. Radiology read in agreement. Patient reevaluated and updated on the negative workup. All questions answered. Stable for outpatient management. Patient discharged from the Emergency Department. I do not feel that the patient's evaluation reveals any acute reason for admission at this time. I instructed them to either follow-up with their primary care physician or promptly return to the Emergency Department for reevaluation should symptoms worsen or new symptoms develop. I explained what symptoms would indicate the need to return to the emergency department. Shared decision making was used. The patient voiced understanding of the treatment plan and is agreeable with it. Clinical impression Chest pain History & Record Review Discussion w/independent historian: Patient Lab Data Attestation: I reviewed the patient's lab results. Labs: Laboratory Results - last 24 hr 03/30/25 13:10 WBC 5.2 RBC 4.42 Hgb 13.8 Hct 39.7 MCV 89.8 MCH 31.2 MCHC 34.8 RDW Std Deviation 40.1 RDW Coeff of Bowen 12.2 Plt Count 186 MPV 10.8 Immature Gran % (Auto) 0.400 Neut % (Auto) 67.7 Lymph % (Auto) 22.4 [place] % (Auto) 8.5 Eos % (Auto) 0.6 Baso % (Auto) 0.4 Absolute Neuts (auto) 3.5 Absolute Lymphs (auto) 1.16 Nucleated RBC % 0 D-Dimer Quant (PE/DVT) < 0.27 L Sodium 138 Potassium 4.0 Chloride 103 Carbon Dioxide 23.2 Anion Gap 11 BUN 11 Creatinine 0.77 Estim Creat Clear Calc 120.38 Est GFR (MDRD) Non-Af 104 BUN/Creatinine Ratio 14.1 Glucose 101 H Calcium 9.3 Troponin T High Sens 6 Radiography Chest X-Ray - ED: 2 View, Read by ED Physician, Normal, No Acute Disease and No Infiltrates Diagnostic Testing: Clinical Impression(s) from Imaging Studies Chest X-Ray 03/30/25 13:36 IMPRESSION: NO ACUTE FINDINGS. Reading Location: [facility] Discharge Plan Triage Chief Complaint: Chest Pain ED Provider: Carmen Yanez Dx/Rx/DC Orders Clinical Impression: Chest pain Instructions: ED Chest Pain, Uncertain Cause Prescriptions: No Action oxycodone-acetaminophen 5-325 mg tablet 1 tab PO Q4H PRN (Reason: Pain) 3 Days Qty: 16 0RF ondansetron 8 mg tablet,disintegrating 8 mg PO Q8H PRN (Reason: nausea and vomiting) Qty: 16 0RF Primary Care Provider: Tyrese Nguyen Referrals: Tyrese Nguyen DO [Primary Care Provider, Medical] - As soon as possible Activity Restrictions/Additional Instructions: Your evaluation in the Emergency Department did not reveal any acute reason for admission. However, I want to emphasize that you may be early in the course of a disease process or illness even if it is not present. For this reason you should follow-up within 24 hours for reevaluation with either your primary care physician or if necessary back here in the Emergency Department. You should return to the Emergency Department immediately if your symptoms worsen or new symptoms develop. Print Language: Kazakh Disposition Disposition: Home, Self Care Discharge Date/Time: 03/30/25 14:15
== END 2025-03-30 14:15 | disposition home or self-care (01) ==
PROVIDERS: Emergency Provider Student in an Organized Health Care Education/Training Program; PCP Student in an Organized Health Care Education/Training Program; Visit Provider Student in an Organized Health Care Education/Training Program
DX: R07.9 Chest pain, unspecified (principal); Z82.49 Family history of ischemic heart disease and other diseases of the circulatory system
CPT/HCPCS: 71046; 80048; 84484; 85025; 85379; 93005; 96360; 99284; A4216